=== PATIENT | female | born 1970 | race Caucasian/White ===

== ENCOUNTER → 2017-10-22 09:40 | Outpatient (CLI) | payer MEDICARE, MEDICAID, SELFPAY ==
--- NOTE | 2017-10-22 09:44 | RAD_ITS ---
STUDY: X-RAY - PELVIS AND LEFT HIP REASON FOR EXAM: Female, 46 years old. Pain, remote injury TECHNIQUE: Radiological exam, hip, unilateral, with pelvis when performed; 2 or 3 views. COMPARISON: None. FINDINGS: There is marked osteoarthritis at the left hip. There is a non-specific bowel gas pattern. Normal visualized soft tissue structures. Normal bilateral iliac wings, sacroiliac joints and visualized sacrum. Normal bilateral superior and inferior pubic rami. Normal pubic symphysis. Normal bilateral ischial tuberosities. RAD/Hip 2-3 Views with Pelvis IMPRESSION: Marked osteoarthritis of the left hip Electronically Signed: Josh Brown MD at 10:04 EST Tel , Service support ,
== END ==
PROVIDERS: Visit Provider Orthopaedic Surgery
DX: M25.552 Pain in left hip (principal)
CPT/HCPCS: 73502

== ENCOUNTER → 2022-03-03 | Outpatient (CLI) | payer MEDICARE, MEDICAID, SELFPAY ==
--- NOTE | 2022-03-03 12:15 | CT_ITS ---
STUDY: CT SCAN LOWER EXTREMITY BILATERAL REASON FOR EXAM: Female, 51 years old. SURGERY- [facility] HIP PROTOCOL RADIATION DOSAGE (If Supplied By Facility): CTDIvol = ( 14.01 ) mGy, DLP = ( 834.05 ) mGycm. Individualized dose optimization techniques were used for this CT.? TECHNIQUE: Multiple axial tomographic images of the hip joints and knee joints were obtained. Coronal and sagittal reconstruction was obtained as well. COMPARISON: None. FINDINGS: There is a marked degree of joint space narrowing and osteoarthritis of the left hip. There is evidence of subchondral cystic changes in the acetabulum and femoral head. This is suggestive of a avascular necrosis. There is superior migration of the left femoral head within the neoacetabular formation. Mild degree of joint space narrowing of the right hip joint. Mild degree of joint space narrowing involving the medial compartments of both knee joints. 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 Electronically Signed: Christian Mc MD at 14:37 EDT ,
== END | disposition home or self-care (01) ==
PROVIDERS: PCP Family Medicine; Referring Provider Specialist; Visit Provider Specialist
DX: M16.52 Unilateral post-traumatic osteoarthritis, left hip (principal)
CPT/HCPCS: 73700

== ENCOUNTER 2022-03-11 15:35 | Inpatient (IN) | payer MEDICARE, MEDICAID, SELFPAY ==
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
[2022-03-03 13:45] LABS: Absolute Lymphocyte Count 3.89 X10^3/uL (0.83-4.51); Absolute Neutrophil Count 6.2 X10^3/uL (2.0-7.7); Basophil# 0.05 X10^3/uL; Basophil% 0.5 % (0-1); Eosinophil# 0.19 X10^3/uL; Eosinophils% 1.7 % (0-5); Hematocrit 51.5 % (37-47); Hemoglobin 16.8 g/dL (12.0-15.0); Lymphocyte # 3.89 X10^3/ul (0.83-4.51); Lymphocyte % 35.1 % (19-41); Mean Corp Hgb Conc 32.6 g/dL (32-36); Mean Corpuscular Hgb 30.8 pg (27.0-32.0); Mean Corpuscular Volume 94.5 fL (81-99); Monocyte# 0.76 X10^3/uL; Monocyte% 6.9 % (0-10); NRBC Flagged by Analyzer 0 % (0-5); Neutrophil # 6.16 X10^3/uL (2.7-7.7); Neutrophil % 55.5 % (47-70); Platelet Count 280 K/mm3 (150-450); RBC Distribution Width CV 13.8 % (11.6-14.6); RBC Distribution Width SD 47.8 fl (35.1-43.9); Red Blood Count 5.45 M/mm3 (4.2-5.4); White Blood Count 11.1 K/mm3 (4.4-11.0)
[2022-03-03 13:52] LABS: Prothrombin Time (Protime)PT. 12.9 SECONDS (11.7-14.9)
[2022-03-03 14:02] LABS: Anion Gap 9 (5-15); BUN 13 mg/dL (7-18); BUN/Creat Ratio 14.2 RATIO (10-20); Calcium,Total 10.9 mg/dL (8.5-10.1); Chloride 101 mmol/L (98-107); Creatinine, Serum 0.92 mg/dL (0.55-1.02); EST Glomerular Filtration Rate 68 mL/min (>60); Est Glom Filt Rate - Afr Amer 82 mL/min (>60); Glucose 108 mg/dL (74-106); Potassium 3.8 mmol/L (3.5-5.1); Sodium Level 135 mmol/L (136-145)
[2022-03-03 14:13] LABS: AST(SGOT) 23 U/L (15-37); Alanine Aminotransfer ALT/SGPT 33 U/L (13-56); Albumin, Serum 4.1 g/dL (3.2-5.0); Alkaline Phosphatase 154 U/L (45-117); Bilirubin, Direct 0.13 mg/dL (0.00-0.30); Globulin 4.7 g/dL (2.2-4.2); Magnesium 2.1 mg/dL (1.6-2.6); Protein, Total 8.8 g/dL (6.4-8.2)
[2022-03-11] VITALS (12 sets, daily range): BP systolic 124–162; BP diastolic 85–115; PULSE 99–120; RESP 16–24; TEMP 36–37.1; O2SAT 95–100; BMI 31.7; BMI 32.1
[2022-03-11] MEDS: Gabapentin 600 MG Tablet PO (11:41)
[2022-03-11] MEDS: Acetaminophen 500 MG Tablet 1000 MG PO ×2 (11:41→21:50)
[2022-03-11] MEDS: Lactated Ringers 1,000 ML 999 ML IV ×2 (11:42→15:30)
[2022-03-11 12:16] LABS: Bedside Glucose 107 mg/dL (74-106)
[2022-03-11] MEDS: Cefazolin 2 GM in 0.9% Normal Saline 100 ML IV (15:01)
[2022-03-11] MEDS: Lactated Ringers 1,000 ML 75 ML IV (15:05)
[2022-03-11] MEDS: TXA 1000mg in NS100 100ml (IVPB at Incision) 660 MG IV (15:29)
[2022-03-11] MEDS: dexAMETHasone 10 MG/ML Vial IV (15:34)
[2022-03-11] MEDS: TXA 1000mg in NS100 100ml (IVPB at Closure) 660 MG IV (16:49)
--- NOTE | 2022-03-11 16:51 | OP.PCM_ITS ---
Report of Operation Date of Procedure: 03/11/22 Pre-Operative Diagnosis: Left hip posttraumatic secondary osteoarthritis Previous left hip surgery Post-Operative Diagnosis: Left hip posttraumatic secondary osteoarthritis Previous left hip surgery Surgery/Procedure Performed:: Conversion previous hip surgery to total hip replacement Description of Surgical Findings:: Stable hip with equal leg lengths Surgeon: Josh Wells delivery representative: Dustin Melton Type of Anesthesia: General Anesthesiologist: Stephan Feliciano Special Medications: 2 g Ancef, 1 g TXA at incision, 1 g TXA closure, 10 mg Decadron Specimen's removed: Bony cuts Estimated Blood Loss (mL): 250 Fluids Replaced: 1500 mL crystalloid Description of Procedure: Findings: Adequate reduction with stability of the hip and equal leg lengths measured intraoperatively. Components used: 1. Paoal secure fit advanced size 9 stem, 132 neck angle 2. Paola Trident 254 mm acetabular shell 3. Hurricane X3 polyethylene liner, alpha code E 4. Paola Biolox delta 36 mm, 5 mm neck femoral head Brief history operative indications: 51-year-old female who presented to my office status post previous acetabular surgery with posttraumatic osteoarthritis. She failed conservative measures. She had severe decreased range of motion. Previous surgical scars are well- healed. No previous surgical complications in this area. Risks and benefits were discussed with the patient which included but were not limited to blood loss, DVTs, PEs, infection, neurovascular damage, and dislocation. In light of all this patient did agree to proceed with a conversion of her previous hip surgery to total hip arthroplasty. Procedure: On the date of procedure the patient's L hip was marked in the preoperative area. Patient was then taken back to the operating room where anesthesia assumed control of the C-spine and airway and administered anesthetic. Patient was transferred to the operating table and placed in the lateral decubitus posit ion with the affected hip up. The patient was secured in the bed with the lateral positioners and leg lengths were checked. The L lower extremity was then prepped out in a sterile fashion using chlorhexidine while the surgeon scrubbed. Upon reentering the room the L lower extremity was draped in the standard orthopedic fashion and the incision was marked. A timeout was called and everyone agreed upon the side, the site, the procedure be performed, antibiotics given, and patient's identity. Our attention was initially directed to the iliac crest where 2 pins were placed and the robotic arrays were fastened. At this time incision was made through skin, subcutaneous tissue, and fat down to fascia. The fascia was then incised and a Charley retractor was placed. The soft tissue was then cleared from the posterior external rotators and the piriformis was identified. Piriformis was taken down and tagged. The remainder of the short external rotators were taken down. Capsulotomy was made and the posterior capsule was tagged. The retractors were then placed inside the capsule. At this time we placed the checkpoint in the proximal femur and registered the femoral checkpoints. The femoral head was then dislocated. The femoral neck was identified and a cleanup cut was made. At this time a power corkscrew was used to remove the femoral head. At this time all bony debris was removed from the acetabulum. Our attention was then directed to the acetabulum and the anterior retractor was placed and a Zelpi was used to retract the posterior capsule superiorly. All soft tissue debris was removed from the pulvinar and labrum of the joint. Acetabulum was registered using the Conecte Link system after passing registration the acetabulum was then reamed to 54 millimeters. At this time a and 54 mm Hurricane Trident 2 cup was opened and impacted into place using the robotic arm. The acetabular liner was then opened and impacted into place. Locking mechanism was verified. Attention was then turned to the femur where the proximal femur was appropriately exposed using a perez retractor. The dry box operator was used to remove the lateral bone. Canal finder was used to verify the canal. We then reamed for a size 9 stem. The proximal femoral femur was then sequentially broached to a size 9 broach which had an appropriate fit. The standard neck was chosen and a 36 mm head with 5 mm offset was trialed. The hip was properly reduced using traction and external rotation. Stability was checked with the appropriate amount of shuck, no impingement with external rotation, and stable at 90? flexion and 90? internal rotation. Leg lengths were checked and were found to be equal on the table and with the Conecte Link robotic system. Once the hip was determined to be stable the trial components were dislocated and the proximal femur was again exposed and the components were removed from the wound. The final components were verified and opened. The wound was copiously irrigated out with normal saline. The acetabulum was checked for any residual debris. The final components were placed and impacted. Traction and external rotation were again used to reduce the hip. After adequate reduction the hip remained stable with appropriate leg lengths. The wound was then copiously irrigated with normal saline once more, and hemostasis was obtained. The posterior capsule and piriformis were repaired through drill holes to the greater trochanter . Closure was then done using #1 Vicryl to close the fascia. A 2-0 Vicryl interrupted sutures were used to close the subcutaneous skin. Skin everardo were used for final skin closure. A sterile dressing was placed. Patient was awakened by anesthesia and transferred to the [facility]. Patient was then transferred to the PACU for recovery. Postoperative plan: Patient will get 24 hours postop antibiotics. Patient will get in-house physical therapy and will be weight-bear as tolerated. Patient will follow up in office in 2 weeks for a wound check and x-rays. Patient be placed on Xarelto 10 mg daily for 4 weeks postop due to anaphylaxis with aspirin. During the course of the procedure the physician steam and gas turbines assembler (PE) played a vital role. Their intimate knowledge of my steps in the procedure aided in safe and expedient completion of the procedure. The PE played a vital rolls in positioning particularly in obtaining the appropriate lateral decubitus position. The PE was also vital in the retraction of soft tissues during the exposure and especially the femoral work as this is a vital part of the procedure to prevent complications and fractures. The PE was also vital and protecting soft tissues during times of bony cuts and reaming. He also played a vital role in closure with my direct supervision. The PE was also important during reduction and dislocation of the joint and trials intraoperatively. Complications No intraoperative complications Admit VTE Documentation VTE Present on Admission: No VTE Mechan Device Prophylaxis: SCD's and Thigh High ADORE Hose VTE Pharm Prophylaxis ordered?: Yes
--- NOTE | 2022-03-11 18:02 | SUR.PHASEI ---
PATIENT STATES I ALWAYS WAKE UP LIKE THIS... CRYING AND SCARED VERY TEARFUL, SOBBING, STATES SHE'S VERY ANXIOUS, I HAVE REALLY HIGH ANXIETY. ATIVAN GIVEN, PAIN MEDS GIVEN.
--- NOTE | 2022-03-11 18:12 | RAD_ITS ---
STUDY: X-RAY - PELVIS AND LEFT HIP REASON FOR EXAM: Female, 51 years old. Post Op -- AP both hips on single jodie/lateral of op hip PACU TECHNIQUE: 2 views of the pelvis and hip. COMPARISON: 10/22/2017 FINDINGS: Please see the impression. RAD/Hip Min 2 Views (Portable) IMPRESSION: Interval left total hip arthroplasty. No radiographic evidence of hardware complication or periprosthetic fracture. Mild osteoarthritis of the right hip joint. Electronically Signed: Praful Carbajal MD at 18:35 EDT ,
[2022-03-11] MEDS: Gabapentin 300 MG Capsule PO (21:49)
[2022-03-11] MEDS: Pramipexole Di-HCl 1 MG Tablet PO (21:50)
[2022-03-11] MEDS: QUEtiapine 100 MG Tablet 200 MG PO (21:51)
[2022-03-11] MEDS: Senna/Docusate Sodium 1 Tablet 2 TABLET PO (21:51)
[2022-03-11] MEDS: Tolterodine Tartrate 2 MG CAP.SA PO (21:51)
[2022-03-11] MEDS: ARIPiprazole 5 MG Tablet PO (21:58)
[2022-03-11] MEDS: amLODIPine 5 MG Tablet PO (22:00)
--- NOTE | 2022-03-11 22:00 | PN.HOSP_ITS ---
Subjective Subjective Patient is a 51 old female with a significant history of bipolar disorder; hypertension; tobacco abuse; COPD; former methamphetamine abuse; and sleep apnea who is postop day 0 for Conversion previous hip surgery to total hip replacement. Internal medicine service has been consulted for post op medical management which includes management of chronic medical conditions of hypertension; bipolar; COPD; and sleep apnea. She complains of a tolerable pain at her left hip. She denies any other symptoms. Objective Data Objective Data Vital Signs: Vital Signs Temp Pulse Resp BP Pulse Ox O2 Del Method O2 Flow Rate 97.9 F 120 H 24 H 154/102 H 98 Nasal Cannula 2 03/11/22 19:10 03/11/22 19:10 03/11/22 19:10 03/11/22 19:10 03/11/22 20:25 03/11/22 20:25 03/11/22 20:25 Oxygen Flow Rate (L/min) 2 Oxygen Delivery Method Nasal Cannula Weight: 101.378 kg Body Mass Index (BMI) 32.1 Intake & Output: Intake and Output for Last 24 Hours 03/09/22 03/10/22 03/11/22 23:59 23:59 23:59 Intake Total 3432 / 3432 Balance 3432 / 3432 Lab / Micro Data Attestation: I reviewed the patient's lab results. Result Diagrams: 03/03/22 12:28 03/03/22 12:28 Labs: Laboratory Results - last 24 hr 03/11/22 11:33: POC Glucose 107 H Micro: Microbiology 03/03/22 12:28 Swab (Method) Nasal Screen MRSA/MSSA - Final Radiography Diagnostic Testing: Radiology Impression Hip X-Ray 03/11/22 18:12 IMPRESSION: Interval left total hip arthroplasty. No radiographic evidence of hardware complication or periprosthetic fracture. Mild osteoarthritis of the right hip joint. Electronically Signed: Praful Carbajal MD at 18:35 EDT , Physical Exam Narrative Physical exam: General: Well-nourished, well-developed. Head: Normocephalic, atraumatic, no tenderness Eyes: Vision is grossly intact. EOMI ENT, edentulous, moist mucous membranes, no rhinorrhea Neck: Nontender, full range of motion, no spinal tenderness, deformities, step- off CVS: Regular rate and rhythm. S1-S2 present. No murmur, gallop or rub. Respiratory : clear to auscultation bilaterally, chest wall nontender, no wheezing Abdomen: Soft, nontender, nondistended, normal bowel sounds, no masses : Deferred Back: Nontender, no CVA tenderness, no midline spinal tenderness, deformities, step-offs Extremities: Tender left hip. No edema of bilateral legs. Skin: Dry and intact dressing at left hip. Normal color, no trauma, abrasions. Polar pack in place at left hip. Neuro: Alert, oriented, cranial nerves II through XII grossly intact. Psychiatry: Normal mood. Normal affect. Not depressed. Not anxious. Assessment & Plan Assessment/Plan (1) Status post left hip replacement: (2) Sleep apnea: (3) Hypertension: PLAN: Plan Status post left hip replacement Postop day 0 on 03/11/2022. Advance diet from clear to regular. Pain control by primary. Leukocytosis, mild. Trend. Hypertension Blood pressure is now within goal. Amlodipine continued. As needed hydralazine ordered. Sleep apnea Nighttime oximetry continued. Oxygen as needed Bipolar disorder Seroquel and aripiprazole continued. Monitor. Tobacco abuse Counseled. Declined nicotine patch. Erythrocytosis Hemoglobin was 16.8; hematocrit of 51.5. Likely secondary to smoking. Trend. DVT prophylaxis: With ADORE duff and SCD; continued.. Charges/Coding Visit Charges Inpatient E&M: 56495 Subs Hosp L2
[2022-03-11] MEDS: Cefazolin 1 GM/50 ML BAG IV (23:28)
--- NOTE | 2022-03-12 | HIP_PTH ---
PATIENT: ROMY BACON LOC: [facility] U#:[id number] AGE/SX: 51/F ROOM: [facility] RE03/11/[address]: Dr. Josh Wells MD : 1970 BED: 1 DIS: 03/13/2022 SPEC #: [id number] RECD: 03/12/22 11:11 STATUS: JUNIOR GRACE #: [id number] DEV: 03/12/22 00:[address]: Josh Wells DEPT: SURGICAL PATHOLOGY RECD BY: Emmett Salas ENTERED: 03/12/22 11:11 SP TYPE: TOTAL HIP OTHR DR: MD Dr. Milvia Goetz DO Dr. Nicholas F Kotsonis, MD Tissues: Hip, NOS Procedures: Decalcification bone/plaque Surgery Specimen Level IV HEADER OPERATION: ERAS, robotic assisted total hip arthroplasty PRE-OP DIAGNOSIS: Severe left hip osteoarthritis TISSUE SUBMITTED: Left femoral bone and tissue MICROSCOPIC DIAGNOSIS Bone and tissue of left hip, total hip resection: Severe degenerative joint disease. AM:armaan 03/16/2022 MICROSCOPIC DESCRIPTION Slides are reviewed. GROSS DESCRIPTION Received is one container labeled with the patient's name and designated left femoral bone and tissue. The specimen consists of a distorted femoral head measuring 6.8 x 6 x 6 cm. The articular surface displays prominent osteophyte formation, eburnation and bone erosion. Also present in the specimen container are multiple irregular fragments of bone and bone reamings measuring in aggregate 10 x 7 x 2 cm. Engineering Intern sections are submitted in one cassette after decalcification. / AM:armaan 03/12/2022 TC:5 CPT: 80742, 71108
[2022-03-12 04:46] VITALS: BP 120/79; PULSE 93; RESP 18; TEMP 36.6; O2SAT 98
[2022-03-12] MEDS: Acetaminophen 500 MG Tablet 1000 MG PO ×3 (06:27→21:15)
[2022-03-12] MEDS: Rivaroxaban 10 MG Tablet PO (06:27)
[2022-03-12 07:30] LABS: Hematocrit 39.4 % (37-47); Mean Corpuscular Hgb 30.9 pg (27.0-32.0); Mean Corpuscular Volume 93.6 fL (81-99); Mean Platelet Vol. 9.8 fl (6.2-12.0); Platelet Count 245 K/mm3 (150-450); RBC Distribution Width CV 13.5 % (11.6-14.6); RBC Distribution Width SD 45.8 fl (35.1-43.9); Red Blood Count 4.21 M/mm3 (4.2-5.4); White Blood Count 15.6 K/mm3 (4.4-11.0)
[2022-03-12 08:00] VITALS: BP 134/88; PULSE 126; RESP 16; TEMP 37; O2SAT 96
[2022-03-12] MEDS: 0.9% Saline Lock 10 ML Syringe IV ×3 (08:06→21:45)
[2022-03-12] MEDS: Cefazolin 1 GM/50 ML BAG IV (08:06)
[2022-03-12 08:31] LABS: Anion Gap 8 (5-15); BUN 7 mg/dL (7-18); BUN/Creat Ratio 11.2 RATIO (10-20); Calcium,Total 9.3 mg/dL (8.5-10.1); Chloride 106 mmol/L (98-107); Creatinine, Serum 0.62 mg/dL (0.55-1.02); EST Glomerular Filtration Rate 106 mL/min (>60); Est Glom Filt Rate - Afr Amer 128 mL/min (>60); Estimated Creatinine Clearance 113.48 ml/min; Glucose 122 mg/dL (74-106); Potassium 4.3 mmol/L (3.5-5.1); Sodium Level 136 mmol/L (136-145)
--- NOTE | 2022-03-12 09:57 | CASEMGMT ---
Social Work SW met w/pt in room to review prior level of function and anticipate discharge plan. PCP: Milvia Dave Specialists: Dr. Wells, orthopedics, Dr. Lee, cardiology, and a counselor at [facility]: [facility] [place] Insurance/Prescription Coverage: [place] [employer] Living arrangements/Prior level of care: Pt lives home in a trailer with her daughter, son-in-law and grandson. There is a ramp and then four steps into the trailer, she states one is falling apart. Pt is independent at home. LW/POA: We spoke about LW/POA, pt does not have these documents, declines to complete at this time. DME/HHC/SNF: Pt states has no history of SNF or HHC. Pt states has a walker she uses at baseline, she also has grab bars, toilet riser, bedside commode, shower chair, morning show newscast producer. Plan: SW spoke w/pt about plan from hospital. Pt states she cannot go home due to having a cattle driveway. SW provided list of long term facilities in pt's preferred geographic area, in pt's insurance network, complete with quality and resource use data. Pt states would like to go to [facility]. SW explained referral will be sent, if [facility] can take, they will submit the information to insurance for precert, to see if they will authorize. Pt states understanding. Plan: SNF skilled pending precert [facility]
--- NOTE | 2022-03-12 10:08 | CASEMGMT ---
Discharge Contingents Supervisor [place] Discharge Contingents Supervisor called [facility]. Beds are available. [place] faxed over referral. OT notes are not in yet. Will fax over OT notes when I see they are available. Will follow. Jamaica Jordan Discharge Contingents Supervisor
[2022-03-12] MEDS: Famotidine 20 MG Tablet PO (10:38)
[2022-03-12] MEDS: Cholecalciferol (Vit D3) 125 MCG CAPSULE (5,000 UNITS) PO (10:39)
[2022-03-12] MEDS: Ketorolac 15 MG/ML Vial IV ×2 (10:43→21:43)
[2022-03-12] MEDS: Gabapentin 300 MG Capsule PO ×2 (10:43→21:14)
--- NOTE | 2022-03-12 10:58 | PN.ORTHO_ITS ---
Subjective Subjective The patient was sitting in bedside chair upon examination. Patient denies any chest pain, shortness of breath, dizziness, lightheadedness, nausea or vomiting, or calf pain. Pain is controlled on medications. No adverse overnight events. Patient overall appears to be doing well today. She tolerated therapy well. Patient states she is wishing to go to residential facility as she has difficulty getting to her house secondary to a cattle driveway. Objective Data Objective Data Vital Signs: Vital Signs Temp Pulse Resp BP Pulse Ox O2 Del Method O2 Flow Rate 97.8 F 93 18 120/79 98 Room Air 2 03/12/22 04:46 03/12/22 04:46 03/12/22 04:46 03/12/22 04:46 03/12/22 04:46 03/12/22 04:46 03/11/22 23:08 Oxygen Flow Rate (L/min) 2 Oxygen Delivery Method Room Air Weight: 101.378 kg Body Mass Index (BMI) 32.1 Intake & Output: Intake and Output for Last 24 Hours 03/10/22 03/11/22 03/12/22 23:59 23:59 23:59 Intake Total 3432 / 3432 50 / 50 Output Total 1100 / 1100 Balance 3432 / 2332 -1050 / -1050 Lab / Micro Data Result Diagrams: 03/12/22 07:10 03/12/22 07:10 Labs: Laboratory Results - last 24 hr 03/11/22 11:33: POC Glucose 107 H 03/12/22 07:10: WBC 15.6 H, RBC 4.21, Hgb 13.0, Hct 39.4, MCV 93.6, MCH 30.9, MCHC 33.0, RDW Std Deviation 45.8 H, RDW Coeff of [place] 13.5, Plt Count 245, MPV 9.8 03/12/22 07:10: Sodium 136, Potassium 4.3, Chloride 106, Carbon Dioxide 22.0, Anion Gap 8, BUN 7, Creatinine 0.62, Estim Creat Clear Calc 113.48, Est GFR (MDRD) Af Amer 128, Est GFR (MDRD) Non-Af 106, BUN/Creatinine Ratio 11.2, Glucose 122 H, Calcium 9.3 Micro: Microbiology 03/03/22 12:28 Swab (Method) Nasal Screen MRSA/MSSA - Final Radiography Diagnostic Testing: Radiology Impression Hip X-Ray 03/11/22 18:12 IMPRESSION: Interval left total hip arthroplasty. No radiographic evidence of hardware complication or periprosthetic fracture. Mild osteoarthritis of the right hip joint. Electronically Signed: Praful Carbajal MD at 18:35 EDT Reading Location ID and State: [facility] / [place] Tel , Service support , Physical Exam Narrative Vital signs stable and afebrile. Yesterday patient was having some tachycardia and elevated blood pressure. This has been trending downward. Currently denies any chest pain or shortness of breath. We will continue to monitor. SCDs and ADORE hose are in place bilaterally Left hip is soft and supple Patient is able to plantarflex and dorsiflex actively. Sensation is intact to light touch to saphenous, sural, superficial and deep pe roneal, and tibial distribution. Dressing is clean dry and intact. Negative Homans bilaterally, negative signs and symptoms of DVT. Const alert, oriented x3 and no apparent distress Nutritional Appearance: obese Assessment & Plan Assessment/Plan (1) Status post left hip replacement: PLAN: 1. S/P conversion previous hip surgery to a posterior left total hip arthroplasty POD #1 2. Continue Pain Medications: Tylenol and oxycodone 3. DVT Prophylaxis: Xarelto for 4 weeks postoperatively as patient has a anaphylaxis reaction to aspirin. 4. PT/OT: Weightbearing as tolerated with walker. Continue with posterior hip dislocation precautions for 3 months postoperatively 5. H & H: 13.0/39.4, asymptomatic. Postoperative anemia secondary to acute blood loss from surgery without any intra operative complications. 6. Reactive leukocytosis: Currently 15.6, afebrile. Patient did receive Decadron intraoperatively. No signs clinically of underlying infection. 7. Continue postoperative medical management per medicine: Patient does have history of chronic obstructive pulmonary disease/emphysema and does require oxygen 2 L at nighttime. Also with sleep apnea. 8. Encouraged Incentive Spirometry 9. Disposition: Case management is currently involved in appropriate discharge planning and placement. Patient will continue above medications while in the hospital. Continue with physical therapy while in the hospital. Probable discharge tomorrow depending upon approval with insurance. I have reviewed the [place] Automated Rx Reporting System (OARRS) report for this patient for refill pattern and other prescriber involvement as part of the appropriate surveillance for the provision of acute and chronic controlled medications. The report was requested and reviewed on the date of this entry and was considered in the prescribing process. This dictation was created using voice recognition software. Phonetic and/or grammatical errors may exist.
[2022-03-12 11:44] VITALS: O2SAT 96
--- NOTE | 2022-03-12 14:07 | CASEMGMT ---
Social Work BENIGNO spoke w/Kenyatta at [facility]. Kenyatta concerned pt would trigger a further review when a PAS/RR is completed. BENIGNO explained to Kenyatta that pt is inpt and will need less than 30 days at the SNF so a PAS/RR is not needed. Kenyatta states understanding, will submit for precert. She is concerned however insurance may not authorize. BENIGNO spoke w/pt again, let her know [facility] can take pt and will start precert. SW did let her know that [place] is concerned on whether or not she will be authorized however. Pt states understanding. She states however that she is not prepared to go home. She states she sleeps on a futon, has a broken step, and is concerned that going down her bumpy driveway in a car could cause damage to her new hip. SW explained will keep her informed as we go about precert. BENIGNO did call Kenyatta back at [facility], let her know pt's concerns and asked her to put this with the information submitted for precert, as perhaps it would help with attaining precert. Kenyatta states understanding. BENIGNO will continue to follow. LYRIC Weinstein
--- NOTE | 2022-03-12 15:32 | CASEMGMT ---
Addendum entered by Jamaica Jordan 03/12/22 16:03: Discharge Sock Lining Examiner [place] Discharge Sock Lining Examiner faxed over old therapy. New therapy note was never put in. [email or web address] admissions called and said patient would probably not be accepted by insurance because she is independent and walking 120ft CG. Arianna from [email or web address] said there would be no need in her going there. Jamaica updated SW Henna and Henna was going to call admissions to see why they will not send information to insurance. [place] Jordan Discharge Sock Lining Examiner Original Note: Discharge Sock Lining Examiner Faxed over all PT/OT notes including recent therapy to [email or web address]. [place] Discharge Sock Lining Examiner
--- NOTE | 2022-03-12 16:11 | CM.UR ---
Social Work SW called Kenyatta at [facility] for clarification on whether or not they are saying no to referral, or if insurance denied. As per Kenyatta, her regional sales representative said pt would not be authorized. BENIGNO explained that pt did therapy again, however we don't have updated notes and will send them over once they are in. Kenyatta states she will forward them once they are sent over. SW/personal financial planner assistant golf course superintendent will send over the updated notes once they are available. BENIGNO will continue to follow. LYRIC Weinstein
[2022-03-12 18:25] VITALS: BP 128/88; PULSE 112; RESP 14; TEMP 36.9; O2SAT 99
[2022-03-12 21:08] VITALS: BP 133/92; PULSE 101; RESP 20; TEMP 36.7; O2SAT 97
[2022-03-12] MEDS: ARIPiprazole 5 MG Tablet PO (21:13)
[2022-03-12] MEDS: Tolterodine Tartrate 2 MG CAP.SA PO (21:13)
[2022-03-12] MEDS: QUEtiapine 100 MG Tablet 200 MG PO (21:14)
[2022-03-12] MEDS: amLODIPine 5 MG Tablet PO (21:14)
[2022-03-12] MEDS: Pramipexole Di-HCl 1 MG Tablet PO (21:14)
[2022-03-13] VITALS (7 sets, daily range): BP systolic 124–133; BP diastolic 79–93; PULSE 99–117; RESP 16–18; TEMP 36.5–36.8; O2SAT 94–97
[2022-03-13] MEDS: Ketorolac 15 MG/ML Vial IV (03:58)
[2022-03-13] MEDS: 0.9% Saline Lock 10 ML Syringe IV (04:02)
[2022-03-13] MEDS: Rivaroxaban 10 MG Tablet PO (04:03)
[2022-03-13] MEDS: Acetaminophen 500 MG Tablet 1000 MG PO (04:03)
[2022-03-13 06:12] LABS: Absolute Neutrophil Count 8.1 X10^3/uL (2.0-7.7); Basophil# 0.03 X10^3/uL; Basophil% 0.2 % (0-1); Eosinophil# 0.09 X10^3/uL; Eosinophils% 0.7 % (0-5); Hematocrit 36.2 % (37-47); Lymphocyte % 25.2 % (19-41); Mean Corp Hgb Conc 33.1 g/dL (32-36); Mean Corpuscular Hgb 30.8 pg (27.0-32.0); Mean Corpuscular Volume 92.8 fL (81-99); Mean Platelet Vol. 9.8 fl (6.2-12.0); Monocyte% 7.3 % (0-10); NRBC Flagged by Analyzer 0 % (0-5); Neutrophil # 8.14 X10^3/uL (2.7-7.7); Neutrophil % 66.2 % (47-70); Platelet Count 241 K/mm3 (150-450); RBC Distribution Width SD 47.4 fl (35.1-43.9); White Blood Count 12.3 K/mm3 (4.4-11.0)
[2022-03-13 06:31] LABS: Anion Gap 5 (5-15); BUN 15 mg/dL (7-18); BUN/Creat Ratio 19.2 RATIO (10-20); Chloride 108 mmol/L (98-107); Creatinine, Serum 0.78 mg/dL (0.55-1.02); EST Glomerular Filtration Rate 82 mL/min (>60); Est Glom Filt Rate - Afr Amer 99 mL/min (>60); Glucose 97 mg/dL (74-106); Potassium 3.9 mmol/L (3.5-5.1); Sodium Level 140 mmol/L (136-145)
--- NOTE | 2022-03-13 06:34 | PN.ORTHO_ITS ---
Subjective Subjective The patient was sitting in bedside chair upon examination. Patient denies any chest pain, shortness of breath, dizziness, lightheadedness, nausea or vomiting, or calf pain. Pain is controlled on medications. No adverse overnight events. Patient's plan is to try to go to [facility]. We are waiting on pre-CERT and approval through insurance. Patient has been working with physical therapy doing well. She states her pain is significantly improved from prior to surgery. She is pleased with outcome of surgery. Patient denies any chest pain or shortness of breath. No feelings of palpitations or racing heart. She does have some mild tachycardia which she also had at her preoperative visit prior to surgery. Objective Data Objective Data Vital Signs: Vital Signs Temp Pulse Resp BP Pulse Ox O2 Del Method O2 Flow Rate 97.7 F L 99 18 124/79 H 96 Room Air 2 03/13/22 03:52 03/13/22 03:52 03/13/22 03:52 03/13/22 03:52 03/13/22 03:52 03/13/22 03:52 03/11/22 23:08 Oxygen Flow Rate (L/min) 2 Oxygen Delivery Method Room Air Weight: 101.378 kg Body Mass Index (BMI) 32.1 Intake & Output: Intake and Output for Last 24 Hours 03/11/22 03/12/22 03/13/22 23:59 23:59 23:59 Intake Total 3432 / 3432 100 / 100 Output Total 1100 / 1100 Balance 3432 / 2332 -1000 / -1000 Lab / Micro Data Result Diagrams: 03/13/22 06:00 03/13/22 06:00 Labs: Laboratory Results - last 24 hr 03/12/22 07:10: WBC 15.6 H, RBC 4.21, Hgb 13.0, Hct 39.4, MCV 93.6, MCH 30.9, M CHC 33.0, RDW Std Deviation 45.8 H, RDW Coeff of [place] 13.5, Plt Count 245, MPV 9.8 03/12/22 07:10: Sodium 136, Potassium 4.3, Chloride 106, Carbon Dioxide 22.0, Anion Gap 8, BUN 7, Creatinine 0.62, Estim Creat Clear Calc 113.48, Est GFR (MDRD) Af Amer 128, Est GFR (MDRD) Non-Af 106, BUN/Creatinine Ratio 11.2, Glucose 122 H, Calcium 9.3 03/13/22 06:00: WBC 12.3 H, RBC 3.90 L, Hgb 12.0, Hct 36.2 L, MCV 92.8, MCH 30.8, MCHC 33.1, RDW Std Deviation 47.4 H, RDW Coeff of [place] 14.0, Plt Count 241, MPV 9.8, Immature Gran % (Auto) 0.400, Neut % (Auto) 66.2, Lymph % (Auto) 25.2, [place] % (Auto) 7.3, Eos % (Auto) 0.7, Baso % (Auto) 0.2, Absolute Neuts (auto) 8.1 H, Absolute Lymphs (auto) 3.10, Nucleated RBC % 0 03/13/22 06:00: Sodium 140, Potassium 3.9, Chloride 108 H, Carbon Dioxide 27.0, Anion Gap 5, BUN 15, Creatinine 0.78, Estim Creat Clear Calc 90.20, Est GFR (MDRD) Af Amer 99, Est GFR (MDRD) Non-Af 82, BUN/Creatinine Ratio 19.2, Glucose 97, Calcium 9.0 Micro: Microbiology 03/03/22 12:28 Swab (Method) Nasal Screen MRSA/MSSA - Final Physical Exam Narrative Vital signs stable and afebrile. Patient does have previous readings of some mild tachycardia. She also had this at her preoperative visit prior to surgery. She denies any chest pain or shortness of breath. Denies any racing heart or palpitations. Left thigh is soft and supple ADORE hose are in place bilaterally. SCDs are currently not on. Patient is able to plantarflex and dorsiflex actively. Sensation is intact to light touch to saphenous, sural, superficial and deep peroneal, and tibial distribution. Dressing is clean dry and intact. Negative Homans bilaterally, negative signs and symptoms of DVT. Const alert, oriented x3 and no apparent distress Nutritional Appearance: obese Assessment & Plan Assessment/Plan (1) Status post left hip replacement: PLAN: 1. S/P conversion previous hip surgery to a posterior left total hip arthroplasty POD #2 2. Continue Pain Medications: Tylenol and oxycodone 3. DVT Prophylaxis: Xarelto for 4 weeks postoperatively as patient has a anaphylaxis reaction to aspirin. 4. PT/OT: Weightbearing as tolerated with walker. Continue with posterior hip dislocation precautions for 3 months postoperatively 5. H & H: 12.0/36.2, asymptomatic. Postoperative anemia secondary to acute blood loss from surgery without any intra operative complications. 6. Reactive leukocytosis: Trending down and currently at 12.3, afebrile. Patient did receive Decadron intraoperatively. No signs clinically of underlying infection. 7. Continue postoperative medical management per medicine: Patient does have history of chronic obstructive pulmonary disease/emphysema and does require oxygen 2 L at nighttime. Also with sleep apnea. 8. Encouraged Incentive Spirometry 9. Disposition: Case management is currently involved in appropriate discharge planning and placement. Patient will continue above medications while in the hospital. Continue with physical therapy while in the hospital. Plan will be [facility] facility as long as approval can be obtained. I did discuss with the patient that if approval was not obtained will need to consider home with home health therapy or outpatient therapy. She voiced understanding and agreement with treatment plan. Prescriptions will be placed on the chart. Patient will follow-up per postop instructions. Therapy will need to be established with catalytic case operator if patient is not able to go to jail facility. I also recommend she follow-up with her primary care physician in approximately 10 days postoperatively. She voiced understanding agreement. I discussed with her patient's resting tachycardia and she states she does not have any feelings of palpitations or racing heart. Case was discussed with Dr. Josh Wells. I have reviewed the [place] Automated Rx Reporting System (OARRS) report for this patient for refill pattern and other prescriber involvement as [facility] for the provision of acute and chronic controlled medications. The report was requested and reviewed on the date of this entry and was considered in the prescribing process. This dictation was created using voice recognition software. Phonetic and/or grammatical errors may exist.
--- NOTE | 2022-03-13 06:41 | TREXTCAR_ITS ---
Diet Diet Order/Speech Therapy: 03/11/22 22:29 Diet: Cardiac - Heart Healthy Is pt able to select menu?: Yes Wound(s) LEFT LATERAL HIP: Wound Type: Surgical Incision Dressing Change: Remove Mepilex dressing on March 16, 2022 Lower back, MAC local: Wound Type: Puncture Therapies Weight Bearing: Weight bearing as tolerated (With walker. ) Physical Therapy: Eval and Treat (Follow postoperative dislocation precautions for 3 months postoperatively) Occupational Therapy: Eval and Treat Problem/Diagnosis (1) Status post left hip replacement: Status: Acute Code(s): Z96.642 - Presence of left artificial hip joint Plan: 1. S/P conversion previous hip surgery to a posterior left total hip art hroplasty POD #2 2. Continue Pain Medications: Tylenol and oxycodone 3. DVT Prophylaxis: Xarelto for 4 weeks postoperatively as patient has a anaphylaxis reaction to aspirin. 4. PT/OT: Weightbearing as tolerated with walker. Continue with posterior hip dislocation precautions for 3 months postoperatively 5. H & H: 12.0/36.2, asymptomatic. Postoperative anemia secondary to acute blood loss from surgery without any intra operative complications. 6. Reactive leukocytosis: Trending down and currently at 12.3, afebrile. Patient did receive Decadron intraoperatively. No signs clinically of underlying infection. 7. Continue postoperative medical management per medicine: Patient does have history of chronic obstructive pulmonary disease/emphysema and does require oxygen 2 L at nighttime. Also with sleep apnea. 8. Encouraged Incentive Spirometry 9. Disposition: Case management is currently involved in appropriate discharge planning and placement. Patient will continue above medications while in the hospital. Continue with physical therapy while in the hospital. Plan will be for possible discharge to senior care facility as long as approval can be obtained. I did discuss with the patient that if approval was not obtained will need to consider home with home health therapy or outpatient therapy. She voiced understanding and agreement with treatment plan. Prescriptions will be placed on the chart. Patient will follow-up per postop instructions. Therapy will need to be established with counseling case manager if patient is not able to go to senior care facility. I also recommend she follow-up with her primary care physician in approximately 10 days postoperatively. She voiced understanding agreement. I discussed with her patient's resting tachycardia and she states she does not have any feelings of palpitations or racing heart. Case was discussed with Dr. Josh Wells. I have reviewed the [place] Automated Rx Reporting System (OARRS) report for this patient for refill pattern and other prescriber involvement as part of the appropriate surveillance for the provision of acute and chronic controlled medications. The report was requested and reviewed on the date of this entry and was considered in the prescribing process. This dictation was created using voice recognition software. Phonetic and/or grammatical errors may exist. Allergies/Procedures Done in Hospital Allergies aspirin Allergy (Mild, Verified 03/11/22 11:22) unkown coconut Allergy (Mild, Verified 03/11/22 11:22) unknown meperidine [From Demerol] Allergy (Mild, Verified 03/11/22 11:22) unknown morphine Allergy (Mild, Verified 03/11/22 11:22) unknown penicillin V Allergy (Mild, Verified 03/11/22 11:22) unkown promethazine [From Phenergan] Allergy (Mild, Verified 03/11/22 11:22) unknown Sulfa (Sulfonamide Antibiotics) Adverse Reaction (Verified 03/11/22 11:22) Upset Stomach Type of Care/Length of Stay Estimated LOS: Convalescent Care Less Than 30 days Type of Care Needed: Skilled Rehab Potential: Good Prognosis: Good Additional Orders/Day of Discharge Day of Discharge: 03/13/22 Dietary and Speech Recommendations Dietitian Recommendations/Changes: Continue Cardiac diet and Ensure Surgery TID with medpass Follow Up Care Please Follow Up With: Dustin Melton PA-C When: March 26, 2022 at 1:15 PM Discharge Plan Admission Admit Date/Time: 03/11/22 17:58 Attending Provider: Josh Wells Primary Care Provider: Milvia Dave Consulting Providers: Ramos Oliveira ; Lavelle Blackburn Discharge Orders/Prescriptions Prescriptions: New acetaminophen 500 mg Tablet 1,000 mg PO Q8 14 Days Qty: 100 0RF Rx Instructions: Do not take more than 3000 mg Tylenol in a 24-hour period. oxycodone 5 mg Tablet 5 - 10 mg PO Q4H PRN PRN (Reason: Pain Score 4-10) 5 Days Qty: 60 0RF Xarelto 10 mg Tablet 10 mg PO 0600 Qty: 26 0RF Rx Instructions: Take for 4 weeks postoperatively for DVT prophylaxis secondary to total hip arthroplasty sennosides-docusate sodium [Stool Softener-Stimulant Laxat] 8.6-50 mg Tablet 2 tab PO BID Qty: 12 0RF Rx Instructions: Take until first bowel movement, then as needed Continued ergocalciferol (vitamin D2) 50,000 unit capsule 50,000 unit PO MO amlodipine 10 mg tablet 5 mg PO QHS cholecalciferol (vitamin D3) [Vitamin D3] 125 mcg (5,000 unit) Tablet 125 mcg PO DAILY cyclobenzaprine 10 mg Tablet 10 mg PO QHS quetiapine [Seroquel] 200 mg Tablet 200 mg PO QHS ropinirole 2 mg Tablet 2 mg PO QHS Rx Instructions: administer 1-3 hours before bedtime oxybutynin chloride 5 mg Tablet Extended Release 24hr 5 mg PO QHS aripiprazole 5 mg Tablet 5 mg PO QHS gabapentin 300 mg Tablet 300 mg PO BID Discontinued etodolac 400 mg Tablet 400 mg PO BID PRN (Reason: Pain) Other Ambulatory Orders: Chest PA and Lateral (Routine) Timeframe: [id number] Facility: [facility] - Location: [facility] Ordered By: Dr. Josh Wells Referrals / Follow Up: Milvia Dave DO [Primary Care Provider] - (follow up in 10-14 days with primary care physician) Dustin Melton PA-C [PHYSICIAN WEB PRESS OPERATOR HELPER OFFSET] - 03/26/22 1:15 pm
[2022-03-13] MEDS: Meloxicam 7.5 MG Tablet PO (09:09)
[2022-03-13] MEDS: Cholecalciferol (Vit D3) 125 MCG CAPSULE (5,000 UNITS) PO (09:10)
[2022-03-13] MEDS: Famotidine 20 MG Tablet PO (09:10)
[2022-03-13] MEDS: Senna/Docusate Sodium 1 Tablet 2 TABLET PO (09:10)
[2022-03-13] MEDS: Gabapentin 300 MG Capsule PO (09:10)
--- NOTE | 2022-03-13 09:42 | CASEMGMT ---
Discharge Glass Maker BENIGNO Nguyen asked [place] D/C to fax over more current PT/OT notes to Wallace Jordan Discharge Glass Maker
--- NOTE | 2022-03-13 12:22 | CASEMGMT ---
Social Work SW spoke with Aarti at [facility]. They have reviewed most recent therapy notes and state pt does not have a skilled need and therefore cannot admit under insurance. SW met wit pt and informed of this. Although frustrated, pt is understanding and states she will just return home today. Pt states concerns with housing situation as her landlords do not take care of the mobile home. SW provided pt with information from [facility] for Property Maintenance Issues. Pt states she has needed DME and her sister will pick her up. Pt will need out patient Therapy and pt would like to use [facility]. SW offered to set up appointment for PT and pt denied stating she would like to set up her own appointment as she has to coordinate with her transportation. CHAVA Chan updated and will fax script for PT to [facility]. Plan: D/C home with family. Outpatient PT MALIK Reddy
--- NOTE | 2022-03-13 12:28 | PCM.DC ---
Discharge Instructions Diet Discharge Diet: No restrictions Activity Discharge Activity: May Not Drive (while taking narcotic pain medications.) May shower in (days): 1 (only if incision is dry and without drainage. Do NOT soak/submerge in tub/pool/[place]/stream/hot tub.)) Ice area for (Minutes): 20 (Every 1-2 [address] barrier between ice and skin.) Weight Bearing Status: Weight bearing as tolerated Keep extremity elevated above heart level: Operative Extremity Additional Activity Instructions:: Follow [facility] Post-op Instructions. Once postoperative dressing has been removed only use gentle soap and water over the incision. Do not use any ointments, Neosporin, salves, alcohol pads over the incision for 6 weeks postoperatively. Do not submerge underwater for 6 weeks postoperatively. Wear elastic stockings for 2 weeks. Do NOT use alcohol with narcotic pain medication. Do NOT make important decisions while taking narcotic medication. If you have problems with taking your medication (rash, itching, nausea, etc.) call the office at once. Dressing / Incision Call your doctor if your incision/area has: Continuous Slow Oozing, Sudden Increased Bleeding, Increased Pain/ Swelling, Increased Redness and Foul Smelling Discharge Call your doctor if you observe: Fever of 101 or Higher, Shortness of breath, Chest pain, Calf discomfort and Uncontrolled pain Remove Dressing in: 3 days (Okay to remove dressing on March 16, 2022) Additional Dressing/Incision Instructions:: Follow [facility] Post-op Instructions. Once postoperative dressing has been removed, only use gentle soap and water over the incision. Do not use any ointments, Neosporin, salves, alcohol pads over the incision for 6 weeks postoperatively. Do not submerge underwater for 6 weeks postoperatively. Continue with ADORE hose/elastic stockings for 2 weeks postoperatively. May remove at nighttime but needs to be placed back on the leg during the day. Do NOT use alcohol with narcotic pain medication. Do NOT make important decisions while taking narcotic medication. If you have problems with taking your medication (rash, itching, nausea, etc.) call the office at once. Follow posterior hip dislocation precautions for 3 months post-operatively Follow Up Care Please Follow Up With: Dustin Melton PA-C Test Results: Test results from this visit will be discussed in further detail at your follow-up appointment, if applicable. Discharge Plan Admission Admit Date/Time: 03/11/22 17:58 Attending Provider: Josh Wells Primary Care Provider: Milvia Dave Consulting Providers: Ramos Oliveira ; Lavelle Blackburn Discharge Orders/Prescriptions Prescriptions: New acetaminophen 500 mg Tablet 1,000 mg PO Q8 14 Days Qty: 100 0RF Rx Instructions: Do not take more than 3000 mg Tylenol in a 24-hour period. oxycodone 5 mg Tablet 5 - 10 mg PO Q4H PRN PRN (Reason: Pain Score 4-10) 5 Days Qty: 60 0RF Xarelto 10 mg Tablet 10 mg PO 0600 Qty: 26 0RF Rx Instructions: Take for 4 weeks postoperatively for DVT prophylaxis secondary to total hip arthroplasty sennosides-docusate sodium [Stool Softener-Stimulant Laxat] 8.6-50 mg Tablet 2 tab PO BID Qty: 12 0RF Rx Instructions: Take until first bowel movement, then as needed Continued ergocalciferol (vitamin D2) 50,000 unit capsule 50,000 unit PO MO amlodipine 10 mg tablet 5 mg PO QHS cholecalciferol (vitamin D3) [Vitamin D3] 125 mcg (5,000 unit) Tablet 125 mcg PO DAILY cyclobenzaprine 10 mg Tablet 10 mg PO QHS quetiapine [Seroquel] 200 mg Tablet 200 mg PO QHS ropinirole 2 mg Tablet 2 mg PO QHS Rx Instructions: administer 1-3 hours before bedtime oxybutynin chloride 5 mg Tablet Extended Release 24hr 5 mg PO QHS aripiprazole 5 mg Tablet 5 mg PO QHS gabapentin 300 mg Tablet 300 mg PO BID Discontinued etodolac 400 mg Tablet 400 mg PO BID PRN (Reason: Pain) Other Ambulatory Orders: Chest PA and Lateral (Routine) Timeframe: [id number] Facility: [facility] - Location: [facility] Ordered By: Dr. Josh Wells Referrals / Follow Up: Milvia Dave DO [Primary Care Provider] - (follow up in 10-14 days with primary care physician) Dustin Melton PA-C [[facility] [employer] [facility] [employer]] - 03/26/22 1:15 pm
--- NOTE | 2022-03-13 15:15 | CASEMGMT ---
NORMA LAYTON NOTE: Pt requesting crutches, stating she thought her benefit plan would cover for them, but found out it does not. Dr Wells signed Rx for crutches and crutches obtained from ED supply and provided to pt. Pt denies having other discharge planning needs or concerns. Shanell CORDERO RN CM
== END 2022-03-13 15:48 | disposition home or self-care (01) | DRG 470 ==
LOC: SDC 15:35 → MS3 15:35
PROVIDERS: Anesthesiology; Physician Assistant Surgical; Admitting Provider Specialist; PCP Family Medicine; Referring Provider Specialist; Visit Provider Specialist
PROC: 8E0Y0CZ Robotic Assisted Procedure of Lower Extremity, Open Approach (ICD-10-PCS; CPT 27130; principal; 2022-03-11 13:00)
DX: M16.0 Bilateral primary osteoarthritis of hip (principal); D62 Acute posthemorrhagic anemia; F31.9 Bipolar disorder, unspecified; J43.9 Emphysema, unspecified; E78.00 Pure hypercholesterolemia, unspecified; K21.9 Gastro-esophageal reflux disease without esophagitis; J45.909 Unspecified asthma, uncomplicated; G47.30 Sleep apnea, unspecified; G25.81 Restless legs syndrome; F12.90 Cannabis use, unspecified, uncomplicated; I10 Essential (primary) hypertension; F17.210 Nicotine dependence, cigarettes, uncomplicated
CPT/HCPCS: 36415; 73502; 80048; 80076; 82962; 83735; 85025; 85027; 85610; 85730; 87081; 88305; 88311; 97110; 97116; 97162; 97166; 97530; 97535; 97802; 99251; 99406; C1776; J7120; A4216; G0463; J3475

== ENCOUNTER → 2025-07-25 | Outpatient (CLI) | payer MEDICARE, MEDICAID, SELFPAY ==
--- NOTE | 2025-07-25 14:18 | RAD_ITS ---
PROCEDURE: ABDOMEN SINGLE VIEW 07/25/2025 REASON FOR EXAM: KIDNEY STONE TECHNIQUE: Procedure Code: RADABD Modality: DX Procedure: ABDOMEN SINGLE VIEW COMPARISON: None. FINDINGS: There is a nonobstructive bowel gas pattern. There are multiple punctate calcifications projected over the right renal outline. There are cholecystectomy clips in the right upper quadrant of the abdomen. There is a left total hip arthroplasty. There is mild multilevel degenerative disc disease of the lumbar spine. RAD/Abdomen Single View IMPRESSION: Punctate calcifications projected over the right renal outline consistent with nephrolithiasis. Other findings as noted. Reading Location: [place] [id number]
== END | disposition home or self-care (01) ==
LOC: MTRAD 14:18
PROVIDERS: PCP Nurse Practitioner Family; Referring Provider Urology; Visit Provider Urology
DX: N20.0 Calculus of kidney (principal)
CPT/HCPCS: 74018

== ENCOUNTER 2025-08-23 07:40 | Day surgery (SDC) | payer MEDICARE, MEDICAID, SELFPAY ==
[2025-08-15 10:00] LABS: Hematocrit 42.9 % (37-47); Hemoglobin 13.8 g/dL (12.0-15.0); Mean Corp Hgb Conc 32.2 g/dL (32-36); Mean Corpuscular Volume 94.3 fL (81-99); Mean Platelet Vol. 10.5 fl (6.2-12.0); Platelet Count 292 K/mm3 (150-450); RBC Distribution Width CV 14.7 % (11.6-14.6); RBC Distribution Width SD 51.2 fl (35.1-43.9); Red Blood Count 4.55 M/mm3 (4.2-5.4); White Blood Count 9.2 K/mm3 (4.4-11.0)
[2025-08-15 10:20] LABS: Anion Gap 12 (5-15); BUN 12 mg/dL (4-19); BUN/Creat Ratio 15.5 RATIO (10-20); Calcium,Total 10.0 mg/dL (7.6-11.0); Carbon Dioxide 22.8 mmol/L (21.0-32.0); Chloride 104 mmol/L (98-108); Glucose 101 mg/dL (70-99); Potassium 4.5 mmol/L (3.3-5.1)
[2025-08-23] VITALS (12 sets, daily range): BP systolic 101–165; BP diastolic 72–90; PULSE 71–94; RESP 16–18; TEMP 34.4–36.9; O2SAT 89–100; BMI 26.5
--- OUTSIDE RECORDS SUMMARY | 2025-08-23 07:45 | XMS RPT_ITS | CCD ---
Author Organization [facility] Care Team Providers Care Paying Teller Name Role Phone STEVEN BRANTLEY Unavailable Unavailable FLORINDA COELHO Unavailable Unavailable JAMES, FLORINDA CASTELLANOS Unavailable Unavailable STEVEN BRANTLEY Unavailable Unavailable JAMES, FLORINDA CASTELLANOS Unavailable Unavailable JAMES, FLORINDA CASTELLANOS Unavailable Unavailable Ajay Fair Unavailable Unavailable Ajay Fair Unavailable Unavailable Florinda Arnold Unavailable Unavailable Meño Albert MD Unavailable Unavailable Primary Care Provider Unavailabl e Unavailable Primary Care Provider Unavailabl e Dr. Josh Wells Admit Provider Dr. Josh Wells Referring Provider Dr. Josh Wells Other Provider [phone] Milvia Dave Primary Care Provider Dr. Ramos Oliveira Attending Provider [phone] Dr. Ramos Oliveira Other Provider Mel Davis Attending Unavailable Aime Neves NP Primary Care Unavailable Milvia Dave Referring Unavailable Dr. Milvia Dave DO Referring Provider Dr. Mel Davis MD Attending Physician Liv MAST-Aime Escalante Primary Care Physician [phone] Allergies Allergy Classification Reported Allergen(s) Allergy Type Date of Onset Reaction(s) Facility (9 sources) aspirin; Translations: [aspirin] Drug Allergy 10-09-19 Anaphylaxis [facility] Repository (1 source) meperidine; Translations: [Demerol HCl] Drug Allergy [facility] Repository (8 sources) morphine; Translations: [morphine] Drug Allergy 10-09-19 Hives [facility] Repository (4 sources) Penicillins; Translations: [penicillins] Propensity to adverse reactions to drug (disorder) 10-09-19 Hives, Anaphylaxis, Rash [facility] Repository (1 source) promethazine; Translations: [Phenergan] Drug Allergy [facility] Repository (1 source) House dust mite; Translations: [DUST MITES] allergy to substance 02-17-20 [facility] Work Phone: (1 source) Meperidine Drug Allergy 02-17-20 19 hives, swelling [facility] Work Phone: (1 source) Morphine Drug Allergy 02-17-[address] [facility] Work Phone: (1 source) Penicillin Drug Allergy 02-17-[address] [facility] Work Phone: (1 source) Promethazine Drug Allergy 02-17-20 patient stated that she feels like she has lead in her bones, vomiting [facility] Work Phone: (1 source) Sulfacetamide Drug Allergy 02-17-[address] [facility] Work Phone: (1 source) STINING INSECTS; Translations: [STINING INSECTS] allergy to substance 02-17-20 [facility] Work Phone: (6 sources) Meperidine Drug Allergy 10-09-19 19 Hives [place], [place] (3 sources) Meperidine Drug [facility]-20 [facility] [place] [place] [facility] Promethazine Drug Allergy 10-09-19 19 Hives, Other (See Comments) [place] (3 sources) Sulfonamides (Antibiotic) Propensity to adverse reactions to drug 02-18-20 18 [place] (3 sources) Coconut extract Drug Allergy 02-27-20 22 unknown [facility] (3 sources) Penicillin V Drug Allergy 02-27-20 unkown, Anaphylaxis [facility] (4 sources) Sulfonamides (Antibiotic); Translations: [Sulfa (Sulfonamide Antibiotics)] Propensity to adverse reactions 02-27-20 Upset Stomach, Itching [facility] Repository Comment on above: and upset stomach (1 source) Coconut extract Drug Allergy 06-25-20 [facility] Repository (1 source) HYDROmorphone Drug Allergy 06-25-20 [facility] Repository (1 source) Latex Drug allergy (disorder) 06-25-20 [facility] Repository (1 source) Meperidine Drug Allergy 06-25-20 [facility] Repository (1 source) Penicillin Drug Allergy 06-25-20 [facility] Repository (1 source) Promethazine Drug Allergy 06-25-20 [facility] Repository (1 source) HYDROmorphone Drug Allergy 06-25-20 Chest tightness [facility] Comment on above: and vomiting (1 source) Latex Allergy to substance 06-25-20 Rash [facility] Medications Current Medications Medication Drug Class(es) Dates Sig (Normalized) Sig (Original) amLODIPine 10 mg oral tablet (3 sources) Dihydropyridine Calcium Channel Ashly Start: 10-22-2017 take 5 mg by mouth at bedtime Amlodipine 10 mg tablet Active 5 mg PO AT BEDTIME October 22, 2017 12:00am Complies with drug therapy Start: 10-22-2017 take 5 mg by mouth at bedtime Amlodipine Active 5 MG PO AT BEDTIME October 22, 2017 1:00am ARIPiprazole 5 mg oral tablet (3 sources) Atypical Antipsychotic Start: 02-26-2022 take 1 tablet by mouth at bedtime Aripiprazole 5 mg Tablet Active 5 mg PO AT BEDTIME February 25, 2022 11:00pm Complies with drug therapy ciprofloxacin 500 mg oral tablet (4 sources) Quinolone Antimicrobial Start: 01-11-2022 End: 01-18-2022 take 1 tablet by mouth twice daily ciprofloxacin (CIPRO) 500 MG tablet Take 1 tablet by mouth 2 times daily for 7 days 14 tablet 0 01/11/2022 01/18/2022 Active Start: 03-18-2020 End: 03-25-2020 ciprofloxacin (CIPRO) tablet 500 mg cyclobenzaprine hydrochloride 10 mg oral tablet (3 sources) Muscle Relaxant Start: 02-26-2022 take 1 tablet by mouth at bedtime Cyclobenzaprine 10 mg Tablet Active 10 mg PO AT BEDTIME February 25, 2022 11:00pm Complies with drug therapy gabapentin 600 mg oral tablet (8 sources) Anti-epileptic Agent Start: 06-20-2025 take 1 tablet by mouth once daily Gabapentin 600 mg tablet Active 600 mg PO daily June 19, 2025 11:00pm Complies with drug therapy Start: 02-26-2022 End: 06-20-2025 take 1 tablet by mouth twice daily Gabapentin 300 mg Tablet Discontinued 300 mg PO TWICE A DAY February 25, 2022 11:00pm June 20, 2025 7:22am Start: 02-16-2019 GABAPENTIN 300 MG CAPS 1 capsule daily as needed GABAPENTIN [id number] Meño Albert MD gabapentin (NEUR ONTIN) 100 MG capsule Take 100 mg by mouth 3 times daily.. 0 Active 1 ml ketorolac tromethamine 30 mg/ml cartridge (4 sources) Nonsteroidal Anti-inflammatory Drug, Cyclooxygenase Inhibitor Start: 03-18-2020 ketorolac (TORADOL) injection 30 mg Start: 03-18-2020 End: 03-18-2021 take 1 tablet by mouth every six hours as needed for pain ketorolac (TORADOL) 10 MG tablet Take 1 tablet by mouth every 6 hours as needed for Pain 20 tablet 0 03/18/2020 Active lithium carbonate 150 mg oral capsule (3 sources) Start: 03-24-2019 take 1 capsule by mouth twice daily at mealtime lithium 150 MG capsule Take 1 capsule by mouth 2 times daily (with meals) 60 capsule 0 03/24/2019 Active melatonin 3 mg oral tablet (4 sources) Start: 03-24-2019 take 6.5 tablets by mouth once daily melatonin 3 MG TABS tablet Take 6.5 tablets by mouth daily 195 tablet 0 03/24/2019 Active Start: 02-16-2019 MELATONIN 10 M G TABS 2 tablets daily MELATONIN [id number] Neelima Martínez LPN ondansetron 8 mg disintegrating oral tablet (4 sources) Serotonin-3 Receptor Antagonist Start: 04-24-2020 ondansetron (ZOFRAN ODT) 8 MG TBDP disintegrating tablet Place 1 tablet under the tongue every 8 hours as needed for Nausea or Vomiting 20 tablet 0 04/24/2020 Active Start: 04-24-2020 End: 04-24-2020 ondansetron (ZOFRAN) injecti on 4 mg Start: 03-18-2020 End: 03-18-2020 ondansetron (ZOFRAN) injecti on 4 mg 24 hr oxybutynin chloride 5 mg extended release oral tablet (3 sources) Cholinergic Muscarinic Antagonist Start: 02-26-2022 take 1 tablet by mouth every twenty-four hours at bedtime Oxybutynin Chloride 5 mg Tablet Extended Release 24hr Active 5 mg PO AT BEDTIME February 25, 2022 11:00pm Complies with drug therapy 24 hr paliperidone 3 mg extended release oral tablet (3 sources) Atypical Antipsychotic Start: 03-24-2019 take 1 tablet by mouth once daily paliperidone (INVEGA) 3 MG extended release tablet Take 1 tablet by mouth daily 30 tablet 0 03/24/2019 Active QUEtiapine 200 mg oral tablet (3 sources) Atypical Antipsychotic Start: 02-26-2022 take 1 tablet by mouth at bedtime Quetiapine (Seroquel) 200 mg Tablet Active 200 mg PO AT BEDTIME February 25, 2022 11:00pm Complies with drug therapy rOPINIRole 2 mg oral tablet (7 sources) Nonergot Dopamine Agonist Start: 02-26-2022 take 1 tablet by mouth at bedtime Ropinirole 2 mg Tablet Active 2 mg PO AT BEDTIME February 25, 2022 11:00pm administer 1-3 hours before bedtime Complies with drug therapy Start: 02-16-2019 ROPINIROLE HCL 0.25 MG TABS 1 tablet daily ROPINIROLE HCL [id number] Neelima Martínez LPN 1000 ml sodium chloride 9 mg /ml injection (4 sources) Start: 01-11-2022 0.9 % sodium c hloride infusion Start: 04-24-2020 End: 04-24-2020 0.9 % sodium chloride bolus Start: 03-18-2020 End: 03-18-2020 0.9 % sodium chloride bolus sodium chloride flush 0.9 % injection 3 mL (2 sources) Start: 01-11-2022 sodium chlorid e flush 0.9 % injection 3 mL Start: 04-24-2020 sodium chlorid e flush 0.9 % injection 3 mL traZODone hydrochloride 50 mg oral tablet (3 sources) Serotonin Reuptake Inhibitor Start: 03-24-2019 take 1 tablet by mouth once daily as needed for sleep traZODone (DESYREL) 50 MG tablet Take 1 tablet by mouth nightly as needed for Sleep 30 tablet 0 03/24/2019 Active Completed/Discontinued Medications Medication Drug Class(es) Dates Sig (Normalized) Sig (Original) acetaminophen 500 mg oral tablet (2 sources) Start: 03-13-2022 End: 06-20-2025 Acetaminophen 500 mg Tablet Discontinued 1000 mg PO EVERY 8 HOURS 100 14 0 March 12, 2022 11:00pm June 20, 2025 7:23am Do not take more than 3000 mg Tylenol in a 24-hour period. Start: 03-13-2022 take 3000 mg by mout h every eight hours Acetaminophen Active 1000 MG PO EVERY 8 HOURS 100 14 March 13, 2022 12:00am Do not take more than 3000 mg Tylenol in a 24-hour period. acetaminophen 325 mg / HYDROcodone bitartrate 5 mg oral tablet (1 source) Opioid Agonist Start: 01-11-2022 End: 01-11-2022 HYDROcodone-acetaminophen (NORCO) 5-325 MG per tablet 1 tablet atorvastatin 20 mg oral tablet (4 sources) HMG-CoA Reductase Inhibitor Start: 02-16-2019 ATORVASTATIN CALCIUM 20 MG T ABS 1 tablet daily ATORVASTATIN CALCIUM [id number] Neelima Martínez LPN take 1 tablet by mouth once juan manuel y atorvastatin (LIPITOR) 80 MG tablet Take 80 mg by mouth daily 0 Active cholecalciferol 0.125 mg oral tablet (3 sources) Vitamin D Start: 02-26-2022 End: 06-20-2025 take 1 tablet by mouth once daily Cholecalciferol (Vitamin D3) (Vitamin D3) 125 mcg (5,000 unit) Tablet Discontinued 125 ug PO DAILY February 25, 2022 11:00pm June 20, 2025 7:23am docusate sodium 50 mg / sennosides, fci 8.6 mg oral tablet (2 sources) Start: 03-13-2022 End: 06-20-2025 Sennosides-Docusate Sodium (Stool Softener-Stimulant Laxat) 8.6-50 mg Tablet Discontinued 2 {tbl} PO TWICE A DAY 12 0 March 12, 2022 11:00pm June 20, 2025 7:23am Take until first bowel movement, then as needed ergocalciferol 1.25 mg oral capsule (3 sources) Provitamin D2 Compound Start: 10-22-2017 End: 06-20-2025 Ergocalciferol (Vitamin D2) 50,000 unit capsule Discontinued 85272 U PO MO October 22, 2017 12:00am June 20, 2025 7:23am etodolac 400 mg oral tablet (3 sources) Nonsteroidal Anti-inflammatory Drug Start: 02-26-2022 End: 03-13-2022 take 1 tablet by mouth twice daily as needed for pain Etodolac 400 mg Tablet Discontinued 400 mg PO TWICE A DAY as needed for Pain February 25, 2022 11:00pm March 13, 2022 5:44am 1 ml HYDROmorphone hydrochloride 1 mg/ml cartridge (2 sources) Opioid Agonist Start: 04-24-2020 End: 04-24-2020 HYDROmorphone (DILAUDID) injection 0.5 mg OXcarbazepine 300 mg oral tablet (1 source) Anti-epileptic Agent Start: 02-16-2019 OXCARBAZEPINE 300 MG TABS 1 tablet twice daily OXCARBAZEPINE [id number] Neelima Martínez LPN oxyCODONE hydrochloride 5 mg oral tablet (2 sources) Opioid Agonist Start: 03-13-2022 End: 06-20-2025 take 5-10 mg by mouth every four hours as needed for pain Oxycodone 5 mg Tablet Discontinued 5 - 10 mg PO EVERY 4 HOURS NEEDED as needed for Pain Score 4-10 60 5 0 March 13, 2022 June 20, 2025 7:23am Status post left hip replacement Presence of left artificial hip joint rivaroxaban 10 mg oral tablet (2 sources) Factor Xa Inhibitor Start: 03-13-2022 End: 06-20-2025 Rivaroxaban (Xarelto) 10 mg Tablet Discontinued 10 mg PO 0600 26 0 March 12, 2022 11:00pm June 20, 2025 7:23am Take for 4 weeks postoperatively for DVT prophylaxis secondary to total hip arthroplasty Problems Active Problems Problem Classification Problem Date Documented Da te Episodic/Chronic Abdominal pain (3 sources) Flank pain; Translations: [Flank pain] 06-25-2025 Episodic Alcohol-related disorders (1 source) Alcohol abuse; Translations: [Alcohol abuse, uncomplicated] 06-20-2025 Chronic Blindness and vision defects (1 source) Disorder of vision; Translations: [Unspecified visual loss] 06-20-2025 Chronic Essential hypertension (4 sources) Essential hypertension; Translations: [Essential (primary) hypertension] Chronic Genitourinary symptoms and ill-defined conditions (2 sources) Incontinence; Translations: [Mixed incontinence] 06-25-2025 Chronic Genitourinary symptoms and ill-defined conditions (2 sources) Nocturia; Translations: [Nocturia] 06-25-2025 Episodic Headache; including migraine (1 source) Frequent headache; Translations: [Frequent headaches] 06-20-2025 Episodic Joint disorders and dislocations; trauma-related (1 source) Traumatic arthropathy, left hip; Translations: [Traumatic arthropathy, left hip] Onset: 02-20-2019 02-20-2019 Chronic Nonspecific chest pain (1 source) Chest pain; Translations: [Chest pain, unspecified] Episodic Other acquired deformities (1 source) Unequal limb length (acquired), unspecified site; Translations: [Unequal limb length (acquired), unspecified site] Onset: 02-20-2019 02-20-2019 Episodic Other connective tissue disease (2 sources) History of repair of hip joint; Translations: [Presence of left artificial hip joint] 03-11-2022 Chronic Other connective tissue disease (1 source) Presence of left artificial hip joint; Translations: [Hip joint replacement] Chronic Other diseases of bladder and urethra (2 sources) Overactive bladder; Translations: [Overactive bladder] 06-25-2025 Chronic Other diseases of kidney and ureters (1 source) Kidney disease; Translations: [Disorder of kidney and ureter, unspecified] 06-20-2025 Episodic Other gastrointestinal disorders (1 source) Irritable bowel syndrome; Translations: [Irritable bowel syndrome without diarrhea] 06-20-2025 Chronic Other upper respiratory disease (1 source) Seasonal allergy; Translations: [Other seasonal allergic rhinitis] 06-20-2025 Chronic Residual codes; unclassified (2 sources) Sleep apnea; Translations: [Sleep apnea, unspecified] 03-11-2022 Chronic Comment on above: O2 2L AT NIGHT Residual codes; unclassified (1 source) Sleep apnea, unspecified; Translations: [Unspecified sleep apnea] Chronic Substance-related disorders (1 source) Other psychoactive substance abuse, uncomplicated; Translations: [Drug abuse] 06-20-2025 Chronic Unclassified (1 source) Pain; Translations: [Pain] Onset: 02-17-2018 Episodic Unclassified (1 source) Pain in left hip / M25.552(ICD-10) Onset: 02-17-2018 Unclassified (1 source) New Patient / [id number]() Onset: 02-17-2018 Unclassified (1 source) Paperwork / 111() Onset: 02-17-2018 Unclassified (1 source) Pain / 121() Onset: 02-17-2018 Urinary tract infections (6 sources) Pyelonephritis; Translations: [Urinary tract infectious disease] Onset: 06-25-2025 Episodic Past or Other Problems Problem Classification Problem Date Documented Da te Episodic/Chronic Suicide and intentional self-inflicted injury (3 sources) Suicidal behavior; Translations: [Suicide attempt, initial encounter] Onset: 03-21-2019 03-21-2019 Episodic Unclassified (1 source) Pain in left hip; Translations: [Pain in left hip] Onset: 02-17-2018 Unclassified (1 source) New Patient; Translations: [New Patient] Onset: 02-17-2018 Unclassified (1 source) Paperwork; Translations: [Paperwork] Onset: 02-17-2018 Unclassified (1 source) Problem Results Test Name Value Interpretation Reference Range Facility Laboratory - Chemistry and C hemistry - challengeOrdered By: Mel Davis on 06-25-2025 Bilirubin Ql (U) Negative [facility] Glucose Ql (U) Negative [facility] Ketones Ql (U) Negative [facility] pH (U) 6 [pH] [facility] Specific gravity (U) [Rel density] 1.010 [facility] Urobilinogen (U) [Mass/Vol] 0.9004782 mg/dL [facility] Laboratory - Hematology and Cell countsOrdered By: Mel Davis on 06-25-2025 Hemoglobin Ql (U) Negative [facility] Laboratory - UrinalysisOrder ed By: Mel Davis on 06-25-2025 Nitrite Ql (U) Negative [facility] Protein Ql (U) Negative [facility] MR/Ray 06-25-2025 MR/ALE [facility] [address], [address] [place] [address] OFFICE VISIT Date of Service: 06/25/25 MR#: [id number] Acct: [id number] Name: ROMY EVANS Rep #: [id number] : 1970 Provider: Dr. Mel Anderson i, MD Age/Sex: 54/F Location: [facility] Status: Signed Intake Vital Signs 03/12/22 10:51 06/25/25 14:31 Height 5 ft 10 in 5 ft 10 in Weight: 173 lb BMI 24.8 BP 109/85 H Pulse 92 Intake Visit Reasons: POSS. INFECTION OR STONE Chief Complaint: new patient- possible uti or stone Housing Liaison Required: No Accompanied by: self Is patient in pain?: No Allergies aspirin Allergy (Severe, Verified 06/25/25 14:29) Anaphylaxis latex Allergy (Severe, Verified 06/25/25 14:29) Rash meperidine (From Demerol) Allergy (Severe, Verified 06/25/25 14:29) Hives morphine Allergy (Severe, Verified 06/25/25 14:29) Hives penicillin V Allergy (Severe, Verified 06/25/25 14:29) Anaphylaxis Sulfa (Sulfonamide Antibiotics) Allergy (Severe, Verified 06/25/25 14:29) Itching coconut Allergy (Mild, Verified 06/25/25 14:29) unknown promethazine (From Phenergan) Allergy (Mild, Verified 06/25/25 14:29) unknown hydromorphone (From Dilaudid) Adverse Reaction (Verified 06/25/25 14:29) Chest tightness Medications ???Medication ???Instructions ???Recorded ???Confirmed ???Type amlodipine 10 mg tablet 5 mg PO QHS 10/22/17 06/25/25 Hist ory aripiprazole 5 mg tablet 5 mg PO QHS 02/26/22 06/25/25 Hist ory cyclobenzaprine 10 mg tablet 10 mg PO QHS 02/26/22 06/25/25 His tory oxybutynin chloride 5 mg 5 mg PO QHS 02/26/22 06/25/25 Hist ory tablet,extended release 24 hr quetiapine 200 mg tablet (Seroquel) 200 mg PO QHS 02/26/22 06/25/25 History ropinirole 2 mg tablet 2 mg PO QHS 02/26/22 06/25/25 Hist ory gabapentin 600 mg tablet 600 mg PO QDAY 06/20/25 06/25/25 H istory Nurse's Note: pomerene in MLB CT. not sure if infection or stone. incontinence since she was a little kid. Bladder scan PVR: <50cc [facility] Medical History History of ankle fracture Kidney problem Recurrent UTI Vision problems Pneumonia Pancreatitis Kidney stones Gall stones IBS (irritable bowel syndrome) Frequent headaches Drug abuse Seasonal allergies Alcohol abuse Wears glasses Wears dentures PTSD (post-traumatic stress disorder) Bipolar disorder Anxiety Marijuana use Arthritis Anemia High cholesterol Easy bruising Bladder disease Restless legs Migraine headache Difficulty chewing History of ulceration Gastric reflux Smoker Sleep apnea Emphysema, unspecified Asthma Shortness of breath on exertion History of pain when walking History of edema History of stress test Cardiology follow-up encounter Hx of dislocation of wrist Hx of dislocation of hip Hx of fracture of arm COPD (chronic obstructive pulmonary disease) Anxiety Hyperlipidemia Hypertension Surgical History Surgical shortening of tendon performed History of tooth extraction History of hip replacement History of dental surgery H/O tubal ligation S/P cholecystectomy Family History Mother Cervical cancer Epilepsy Ovarian cancer Sister Nonne's syndrome Son Embolism Uncle Parkinson's disease Brother STD (sexually transmitted disease) Other Alcoholism Anxiety Depression Mental disorder Psychiatric care Severe allergy Suicide attempt Social History Smoking Status: Current every day smoker tobacco type: cigarettes Smoking packs per day: 1 Smoking cigarettes per day: 20.0 alcohol intake: current alcohol intake frequency: holidays/special occasions only Alcohol type: wine substance use type: marijuana what type of physical activity do you participate in: none HPI HPI Urology Chief Complaint: new patient- possible uti or stone Details: ROMY EVANS, is a 54 F. She is here for evaluation and management of possible urinary tract infection or kidney stone. The episode was 2-3 weeks ago. She had left back pain with dark urine and bad odor. She was seen at [facility]. They did a CT and she was told she could have a stone or infection, they could not tell. She had symptoms for a couple of days. It resolved with antibiotics. She is voiding 15-20 times during the day, 3-4 times at night. There is urge incontinence where she cannot make it to the bathroom. There is stress incontinence with cough, laugh, sneeze, lifting, etc. She is using 3 thick pads in 24 hours. She has had this one urinary tract infections in the last year. She has not had visible blood in her urine. She is sexually active. No i (more content not included)... Normal [facility] No Panel InformationOrdered By: Mel Davis on 06-25-2025 Urine Leukocytes Positive [facility] Urine Non-Hemolyzed Blood Negative [facility] URINE CULTURE [CCL]on 2024 Bacteria identified Cx Nom (U) URCUL See Results Below See Below CULTURE, URINE ESCHERICHIA COLI >=100,000 CFU/ml Escherichia coli ORGANISM: ESCHERICHIA COLI ANTIBIOTIC NHUNG DILUTN NHUNG INTERP Ampicillin 4 Susceptible Cefazolin <=4 Susceptible For uncomplicated urinary tract infections, cefazolin results can be used to pre Ceftriaxone <=1 Susceptible Cefepime <=1 Susceptible Ertapenem <=0.5 Susceptible Meropenem <=0.25 Susceptible Ampicillin/Sulbact 4 Susceptible Piperacillin/Tazobac <=4 Susceptible Gentamicin <=1 Susceptible Tobramycin <=1 Susceptible Trimeth sulfameth <=20 Susceptible Ciprofloxacin <=0.25 Susceptible Nitrofurantoin 32 Susceptible This test was developed and its performance characteristics determined by the [facility] [place] ([facility] It has not been cleared or approved by the FDA. -[facility] is regulated under CLIA as qualified to perform high-complexity testing. This test is used for clinical purposes. It should not be regarded as investigational or for research. SOURCE: Urine (Nonspecific) [facility] [address] [place] [address] Tee Boogie III, M.D. [id number] SEND TO IC YES Normal [facility] Comment on above: Performed By: #### [id number] ####[facility],[address] [place] [address] [id number] CMP with eGFRon 05-17-2025 AGE 54 years Normal [facility] Comment on above: Performed By: #### [id number] #### [facility],[address] [place] [address] [id number] Albumin [Mass/Vol] 3.1 g/dL Low 3.4 - 5.0 [facility] Comment on above: Performed By: #### [id number] #### [facility],[address] [place], [place] [id number] Albumin/Globulin [Mass ratio] 0.7 {ratio} Low 0.9 - 1.6 [facility] Comment on above: Performed By: #### [id number] #### [facility],[address] [place] [address] [id number] ALK PHOS 133 U/L High 46 - 116 [facility] Comment on above: Performed By: #### 2 [id number] #### [facility],[address] [place] [address] [id number] ALT [Catalytic activity/Vol] 17 U/L Normal 16 - 63 [facility] Comment on above: Performed By: #### 2 [id number] #### [facility],[address] [place] [address] [id number] Anion gap [Moles/Vol] 11 mmol/L Normal 10 - 20 [facility] [facility] Comment on above: Performed By: #### 2 [id number] #### [facility],[address] [place] [address] 83946 AST [Catalytic activity/Vol] 17 U/L Normal 13 - 39 [facility] Comment on above: Performed By: #### 2 [id number] #### [facility],[address] [place] [address] 83432 B/C RATIO 18 ratio Normal 0 - 30 [facility] Comment on above: Performed By: #### 2 [id number] #### [facility],[address] [place], [place] [id number] Bilirubin [Mass/Vol] 0.6 mg/dL Normal 0.2 - 1.0 [facility] Comment on above: Performed By: #### 2 [id number] #### [facility],[address] [place] [address] Calcium [Mass/Vol] 9.5 mg/dL Normal 8.5 - 10.1 [facility] Comment on above: Performed By: #### 2 40578 #### [facility],[address] [place] [address] Chloride [Moles/Vol] 100 mmol/L Normal 98 - 107 [facility] Comment on above: Performed By: #### 2 [id number] #### [facility],[address] [place] [address] CMP with eGFR Normal [facility] Comment on above: Result Comment: COMP REHENSIVE METABOLIC PANEL Performed By: #### 2 [id number] #### [facility],[address] [place], [place] [id number] CO2 [Moles/Vol] 26.6 mmol/L Normal 21.0 - 32.0 [facility] Comment on above: Performed By: #### 2 [id number] #### [facility],[address] [place], [place] [id number] Creatinine [Mass/Vol] 0.57 mg/dL Normal 0.55 - 1.02 [facility] Comment on above: Performed By: #### 2 [id number] #### [facility],[address] [place], [place] [id number] GFR/1.73 sq M.predicted among non-blacks MDRD (S/P/Bld) [Vol rate/Area] mL/min/{1.73_m2} Normal 60 - 999 [facility] Comment on above: Performed By: #### 2 [id number] #### [facility],[address] [place] [address] 02586 Result Comment: ACCO RDING TO THE NATIONAL KIDNEY DISEASE EDUCATION PROGRAM(NKDE), A NORMAL eGFR IS A VALUE GREATER THAN OR EQUAL TO 60 ML/MIN/1.73 SQ METERS. CHRONIC KIDNEY DISEASE: <60mL/MIN/1.73 SQ METERS KIDNEY FAILURE: <15mL/MIN/1.73 SQ METERS THIS TEST SHOULD ONLY BE USED FOR PATIENTS 18 YEARS OF AGE AND OLDER. Globulin (S) [Mass/Vol] 4.3 g/dL High 1.5 - 3.8 [facility] Comment on above: Performed By: #### 2 [id number] #### [facility],[address] [place] [address] 90438 Glucose [Mass/Vol] 91 mg/dL Normal 74 - 106 [facility] Comment on above: Performed By: #### 2 64220 #### [facility],[address] [place] [address] 11137 Potassium [Moles/Vol] 4.5 mmol/L Normal 3.5 - 5.1 [facility] Comment on above: Performed By: #### 2 [id number] #### [facility],[address] [place] [address] [phone] Protein [Mass/Vol] 7.4 g/dL Normal 6.4 - 8.2 [facility] Comment on above: Performed By: #### 2 35033 #### [facility],[address] [place] [address] 02926 Sodium [Moles/Vol] 133 mmol/L Low 136 - 145 [facility] Comment on above: Performed By: #### 2 [id number] #### [facility],[address] [place] [address] 55167 Urea nitrogen [Mass/Vol] 10 mg/dL Normal 7 - 18 [facility] Comment on above: Performed By: #### 2 02871 #### [facility],[address] [place] [address] 34561 ED MED ADMINISTRATION DETAIL on 05-17-2025 ED MED ADMINISTRATION DETAIL [employer] Operator - ROMY EVANS : 1970, , Medication Administration Record [address] [place] [address] [id number] 05/16/2025 Patient: ROMY EVANS Sex: Female : 1970 Age: 54y MEASUREMENTS: Wt: 81.6 kg, Ht/Haroldo: 70.0 in, BMI: 25.83 ALLERGIES: Demerol, Penicillins, Sulfa (Sulfonamide Antibiotics), aspirin, morphine Medication Ordered Medication Administration Date/Time IV NS 0.9 % 1000 23:48 05/16 IV NS 0.9 % 1000 mL started in bag#1 1000 mL at Started mL at 500 mL/hr 500 mL/hr via Site# 1. Allergies verified and confirmed 5 rights. IV 23:48 05/16/2025 (NOW x1) patency established. IV site checked: no pain, redness, or swelling. Susan Julien R.N. IV flushed thoroughly pre-medication administration. Information Stopped reviewed. Verbalizes understanding. - 23:48 Susan Julien R.N. 01:03 05/17/2025 Dylon Phoenix R.N. 01:03 05/17 Medication Discontinued: bag #1 infused. Total Scanned amount infused: 1000 mL. IV patency established. IV site checked: no pain, redness, or swelling. IV flushed thoroughly post-medication administration. - 01:13 Dylon Phoenix R.N. CefTRIAXone 23:48 05/16 CefTRIAXone (Rocephin) IVPB 2gm/50ml NS 2 g Started (Rocephin) IVPB started at 100 mL/hr diluted in sodium chloride IVPB 0.9 % 23:48 05/16/2025 2gm/50ml NS 2 g Minibag+ 50 mL via Site# 1. Allergies verified and confirmed 5 Susan Julien R.N. diluted in sodium rights. IV patency established. IV site checked: no pain, redness, or Stopped chloride IVPB 0.9 % swelling. IV flushed thoroughly pre-medication administration. - 00:08 05/17/2025 Minibag+ 50 mL at 23:48 Greg Pinzon R.N. 100 mL/hr (NOW x1) Scanned 00:05/17 Medication Discontinued: IV completed. Total amount infused: 50 mL. IV patency established. IV site checked: no pain, redness, or swelling. IV flushed thoroughly post-medication administration. - 00:08 Susan Julien R.N. 1 of 2 [employer] - ROMY EVANS, : 1970, , Medication Ordered Medication Administration Date/Time HYDROmorphone 00:05/17 HYDROmorphone (Dilaudid) IVP 0.5 mg given via Given (Dilaudid) IVP 0.5 Site# 1. Allergies verified and confirmed 5 rights. IV patency 00:05/17/2025 mg (NOW x1, HIGH established. IV site checked: no pain, redness, or swelling. IV Susan Julien R.N. ALERT flushed thoroughly pre-medication administration. Information Scanned MEDICATION) reviewed. Verbalizes understanding. Medication Wastage: 0.5 mg wasted. - 00:08 Susan Julien R.N. 2 of 2 [facility] ED NURSES CLINICAL NOTEon ED NURSES CLINICAL NOTE Nurse Narrative - ROMY EVANS, : 1970, , Nurse Clinical [address] [address] [id number] 05/16/2025 19:08:00 Patient: ROMY EVANS Sex: Female : 1970 Age: 54y Disposition: Discharge to Home Disposition Decision Time: 00:59 05/17/2025 Departure Time: 01:04 05/17/2025 TRIAGE Arrived by private vehicle. Historian: (patient). Primary physician (Jeremy Neves). Triage time: 19:10 05/16/2025. Acuity: LEVEL 3. Chief Complaint: BACK PAIN and (left sided back pain, states not sure if kidney infection). Onset. (2 - 3 days ago). ( pain worsening today). No history of recent trauma. SEPSIS SCREEN: NEGATIVE. SIRS criteria negative: heart rate greater than 90. Possible sources of infection: UTI. -- 19:17 05/16/25 AUBRIE Larson R.N. 19:15 05/16/25. BP: 125/71 MAP: 89. HR: 100. RR: 18. O2 saturation: 95% Temperature: 98.3 F. Pain level now 04/15. -- 19:16 05/16/25 AUBRIE Larson R.N. Measurements: 19:05/16/25 Wt: 81.6 kg, Ht/Haroldo: 70.0 in, BMI: 25.83 -- 19:05/16/25 AUBRIE Lrason R.N. Medications: ropinirole 2 mg tablet: 1 tablet every night at bedtime. -- 19:05/16/25 AUBRIE Larson R.N. quetiapine 200 mg tablet: 1 tablet every night at bedtime. -- 19:05/16/25 AUBRIE Larson R.N. oxybutynin chloride 5 mg tablet: 1 tablet every night at bedtime. -- 19:05/16/25 AUBRIE Larson R.N. ropinirole 2 mg tablet: Stopped 05/16/2025. -- 19:05/16/25 AUBRIE Larson R.N. 1 of 5 Nurse Narrative - ROMY EVANS, : 1970, , quetiapine 200 mg tablet: Stopped 05/16/2025. -- 19:20 05/16/25 AUBRIE Larson R.N. oxybutynin chloride 5 mg tablet: Stopped 05/16/2025. -- 19:20 05/16/25 AUBRIE Larson R.N. gabapentin 600 mg tablet: Stopped 05/16/2025. -- 19:20 05/16/25 AUBRIE Larson R.N. gabapentin 600 mg tablet: 1 tablet once a day. -- 19:20 05/16/25 AUBRIE Larson R.N. aripiprazole 5 mg tablet: Stopped 05/16/2025. -- 19:20 05/16/25 AUBRIE Larson R.N. aripiprazole 5 mg tablet: 1 tablet every night at bedtime. -- 19:20 05/16/25 AUBRIE Larson R.N. amlodipine 5 mg tablet: Stopped 05/16/2025. -- 19:20 05/16/25 AUBRIE Larson R.N. amlodipine 5 mg tablet: 1 tablet once a day. -- 19:20 05/16/25 AUBRIE Larson R.N. 19:10 05/16/25. Preferred Pharmacy: ([facility]). -- 19:17 05/16/25 AUBRIE Larson R.N. Allergies: aspirin -- 19:12 05/16/25 AUBRIE Larson R.N. Demerol: hives -- 19:12 05/16/25 AUBRIE Larson R.N. morphine: hives -- 19:12 05/16/25 AUBRIE Larson R.N. Penicillins. (GI upset) -- 19:05/16/25 AUBRIE Larson R.N. Sulfa (Sulfonamide Antibiotics): dizziness. (GI upset) -- 19:13 05/16/25 AUBRIE Larson R.N. Home Medications/Allergy Information Source: patient -- 19:05/16/25 AUBRIE Larson R.N. Problems: Hypertension -- 19:05/16/25 AUBRIE Larson R.N. Hypercholesterolemia -- 19:05/16/25 AUBRIE Larson R.N. Myocardial Infarction -- 19:14 05/16/25 AUBRIE Larson R.N. Arthritis -- 19:05/16/25 AUBRIE Larson R.N. Surgeries: Hip Surgery. left -- 19:05/16/25 AUBRIE Larson R.N. right wrist tendon replacement -- 19:05/16/25 AUBRIE Larson R.N. History 2 of 5 Nurse Narrative - ROMY EVANS, : 1970, , 19:10 05/16/25. PAST MEDICAL HX: Other immunizations: up-to-date. LNMP: No menstrual periods. SOCIAL HX: Heavy tobacco smoker (cigarette)- less than 1 pack per day. Heavy drug use: marijuana, THC edibles. No alcohol use. The patient has not traveled outside the [place] Infectious disease exposure: No infectious disease exposure. ABUSE ASSESSMENT: The patient answered yes to the question(s) Do you feel safe in your home? and no to the question(s) Are you afraid to go home?. SELF HARM ASSESSMENT: Self harm assessment was performed. The patient answered no to the question(s) Have you recently felt down, depressed, or hopeless? and Do you have thoughts of harming or killing yourself?. FALL RISK ASSESSMENT: Fall risk assessment completed. No risk factors identified. -- 19:17 05/16/25 EDT Stefanie Larson R.N. Interventions 19:10 05/16/25. Advanced care plan discussed with patient (DNRCC). -- 19:17 05/16/25 EDT Stefanie Larson R.N. PHYSICAL ASSESSMENT 23:53 05/16/25. Ambulatory to room. Patient gowned. GENERAL / NEURO / PSYCH: Alert. Oriented X 4. Appears in no acute distress. ( pt c/o left flank pain since Wednesday, Wednesday, now states pain is sharp 9/10 on and off, denies any NV). RESPIRATORY: Respirations not labored. -- 23:58 05/16/25 EDT Dylon Phoenix R.N. NURSING PROGRESS NOTES 22:51 05/16/25. Site #1 started in the left hand with a 22g needle with good blo (more content not included)... Normal [facility] ED ORDER SHEET (CPOE ONLY)on 05-17-2025 ED ORDER SHEET (CPOE ONLY) Order Sheet - ROMY EVANS, : 1970, , Order Sheet [address] [address] [id number] 05/16/2025 Patient: ROMY EVANS Sex: Female : 1970 Age: 54y MEASUREMENTS: Wt: 81.6 kg, Ht/Haroldo: 70.0 in, BMI: 25.83 ALLERGIES: Demerol, Penicillins, Sulfa (Sulfonamide Antibiotics), aspirin, morphine MEDICATION/IV/DRIP/F LUID ORDERS Order Description Priority Entered Acknowledged Completed IV NS 0.9 %1000 mL at 500 22:07 05/16/2025 22:17 23:48 mL/hr (NOW x1) Toni Jordan, 05/16/2025 05/16/2025 Susan Trejo R.N. R.N. CefTRIAXone (Rocephin) IVPB 23:17 05/16/2025 23:48 2gm/50ml NS2 g diluted in Toni Jordan, 05/16/2025 sodium chloride IVPB 0.9 % Katerine Julien Minibag+ 50 mL at 100 mL/hr R.N. (NOW x1) Reason for ordering with alerts: Benefits outweigh risks --23:17 05/16/2025 Toni Jordan D.O. HYDROmorphone (Dilaudid) 00:00 05/17/2025 00:08 IVP0.5 mg (NOW x1, HIGH Toni Jordan, 05/17/2025 ALERT MEDICATION) Katerine Julien, R.N. Reason for ordering with alerts: Benefits outweigh risks --00:00 05/17/2025 Toni Jordan D.O. 1 of 3 Order Sheet - ROMY EVANS, : 1970, , LAB ORDERS Order Description Priority Entered Acknowledged Collected Completed CBC w Diff Stat Stat 22:07 05/16/2025 22:16 05/16/2025 23:04 05/16/2025 Dylon Lopez Brittany D.O. R.N. [place], R.N. Urinalysis Stat Stat 22:07 05/16/2025 22:16 05/16/2025 23:04 05/16/2025 Dylon Lopez Brittany D.O. R.N. [place], R.N. CMP Stat Stat 22:07 05/16/2025 22:16 05/16/2025 23:04 05/16/2025 Dylon Lopez Brittany D.O. R.N. [place], R.N. Urine Culture [CCL] Stat Stat 00:58 05/17/2025 01:00 05/17/2025 01:00 05/17/2025 Dylon Lopez Charles Wilbur, D.O. R.N. R.N. DIAGNOSTIC STUDY ORDERS Order Description Priority Entered Acknowledged Completed CT KUB (Kidney stone) Stat Stat 22:07 05/16/2025 22:16 23:05 Toni Jordan, 05/16/2025 05/16/2025 Kasandra Trejo R.N., R.N. Order Comments: 22:07 05/16/2025: Status: Not . Toni Jordan D.O. Reason for Study: Flank Pain STAFF ORDERS Order Description Priority Entered Acknowledged Collected Completed IV Saline Lock 22:07 05/16/2025 22:16 05/16/2025 23:04 05/16/2025 Dylon Lopez Brittany D.O. R.N. [place], R.N. 2 of 3 Order Sheet - ROMY EVANS, : 1970, , [Electronically signed by Toni Jordan D.O. (05/17/2025 01:49 EDT)] 3 of 3 Normal [facility] ED PHYSICIAN CLINICAL REPORT on 05-17-2025 ED PHYSICIAN CLINICAL REPORT Narrative - ROMY EVANS, : 1970, , Physician Clinical Narrative [address] [address] [id number] 05/16/2025 19:08:00 Patient: ROMY EVANS Sex: Female : 1970 Age: 54y Disposition: Discharge to Home Disposition Decision Time: 00:59 05/17/2025 Departure Time: 01:04 05/17/2025 Measurements Wt: 81.6 kg, Ht/Haroldo: 70.0 in, BMI: 25.83 Initial Vital Sign Measured Time BP MAP HR RR O2Sat ETCO2 Temp Pain GCS RTS 19:15 05/16/2025 125/71 89 100 18 95% 98.3 F 8 Time Seen: 21:56 05/16/2025. Arrived- By private vehicle. Historian- patient. HISTORY OF PRESENT ILLNESS Chief Complaint: LEFT FLANK PAIN. (Patient came in complaining of left-sided flank pain started on Wednesday and it just got progressively worse today and she could not tolerate and presents to the emergency department has a sharp pain that is a constant pain nothing makes it better or worse. She denies any burning with urination or frequency. She has never had a history of kidney stones that she knows of. What she has had plenty of urinary tract infections and pyelonephritis. She has seen a urologist in [place] which she thinks is Dr. Kaufman. She denies any fevers or chills.). Still present. The symptoms are described as severe. The patient has had flank pain. No abdominal pain, pelvic pain, pain with urination, urinary frequency or urgency of urination. REVIEW OF SYSTEMS Shahram - ROMY EVANS, : 1970, , SKIN: No skin rash. RESPIRATORY: No cough. EYES: No eye discomfort. CONSTITUTIONAL: No anorexia. NEUROLOGICAL: No headache. GI: The patient has had nausea. No vomiting or diarrhea. Status: Not . PAST HISTORY See nurses notes. Arthritis Hypercholesterolemia Hypertension Myocardial Infarction Surgeries: Hip Surgery: Body Site left right wrist tendon replacement Medications: amlodipine 5 mg tablet: 1 tablet once a day. amlodipine 5 mg tablet: Stopped 05/16/2025. aripiprazole 5 mg tablet: 1 tablet every night at bedtime. aripiprazole 5 mg tablet: Stopped 05/16/2025. gabapentin 600 mg tablet: 1 tablet once a day. gabapentin 600 mg tablet: Stopped 05/16/2025. oxybutynin chloride 5 mg tablet: 1 tablet every night at bedtime. oxybutynin chloride 5 mg tablet: Stopped 05/16/2025. quetiapine 200 mg tablet: 1 tablet every night at bedtime. quetiapine 200 mg tablet: Stopped 05/16/2025. ropinirole 2 mg tablet: 1 tablet every night at bedtime. ropinirole 2 mg tablet: Stopped 05/16/2025. Allergies: aspirin Demerol: hives morphine: hives Penicillins. (GI upset) Sulfa (Sulfonamide Antibiotics): dizziness. (GI upset) 2 of 10 ROMY Bliss, : 1970, , Home Medications/Allergy Information Source: patient - Stefanie Larson R.N., 05/16/2025 19:13 EDT SOCIAL HISTORY Current every day smoker. Drug use: marijuana. ADDITIONAL NOTES The nursing notes have been reviewed. PHYSICAL EXAM Appearance: Alert. Oriented X3. No acute distress. HEENT: Normal external inspection. ENT: Pharynx normal. Neck: Neck supple. CVS: Heart sounds normal. Respiratory: No respiratory distress. Breath sounds normal. Abdomen: Soft and nontender. Skin: Skin warm and dry. Normal skin color. Normal skin turgor. Extremities: Extremities nontender. No lower extremity edema. Neuro: Oriented X 3. Mood/affect normal. LABS, X-RAYS, AND EKG Laboratory Tests: CBC + DIFF Final DEV: 05/16/2025 22:45:00 EDT MsgRcvd: 05/16/2025 23:19 EDT Lab Test Result Reference Status Received 05/16/2025 23:19 CBC + DIFF Final EDT CBC-COMPLETE BLOOD COUNT 3 of 10 ROMY Bliss, : 1970, , 13.8 x 10/UL 05/16/2025 23:19 WBC 4.5 - 10.8 Final Above high normal EDT 05/16/2025 23:19 RBC 4.88 x 10/UL 4.10 - 5.30 Final EDT 05/16/2025 23:19 HEMOGLOBIN 15.3 g/dl 12.0 - 16.0 Final EDT 05/16/2025 23:19 HEMATOCRIT 43.7 % 34.0 - 46.0 Final EDT 05/16/2025 23:19 MCV 90 fl 80 - 99 Final EDT 05/16/2025 23:19 MCH 31 pg 27 - 33 Final EDT 05/16/2025 23:19 MCHC 35 X10 3 32 - 36 Final EDT 05/16/2025 23:19 RDW/CV 13.7 % 12.0 - 15.6 Final EDT 05/16/2025 23:19 PLATELET 342 x10/UL 150 - 450 Final EDT 05/16/2025 23:19 MPV 8.1 fl 6.6 - 10.5 Final EDT AUTOMATED DIFFERENTIAL 05/16/2025 23:19 NEUT % 75.8 % 46.0 - 76.0 Final EDT 16.1 % 05/16/2025 23:19 LYMPH % 20.0 - 45.0 Final Below low normal EDT 05/16/2025 23:19 MONOS % 6.7 % 0.0 - 10.0 Final EDT Narrative - ROMY EVANS, : 1970, , 05/16/2025 23:19 EO % 1.1 % 0.0 - 7.0 Final EDT (more content not included)... Normal [facility] ED [facility]ILL[facility]20[facility] ROMY EVANS, : 1970, , [address] [address] [id number] 05/16/2025 Patient: ROMY EVANS Sex: Female : 1970 Age: 54y Item Facility Professional Category Description Code Code Quantity Fee Total Drugs Normal Saline 726105 1 $0.00 $0.00 1000cc (389242) Nurse/E/M EMERGENCY 412493 1 $0.00 $0.00 DEPARTMENT VISIT HIGH/URGENT SEVERITY (83677-96) Nurse/IV/IM/Infusion s Drip/IVPB initial 026073 1 $0.00 $0.00 (52765) Nurse/IV/IM/Infusion s Hydration 895969 1 $0.00 $0.00 additional hour (86071) Nurse/IV/IM/Infusion s IVP additional 148332 1 $0.00 $0.00 push (13053) Grand Total $0.00 Providers Toni Jordan D.O. [address] [facility], : 1970, , Chief Complaint LEFT FLANK PAIN. Principal Diagnosis Acute nontraumatic pain in the left lower quadrant of the abdomen. ICD-10 Codes R10.32: Left lower quadrant pain 2 of 2 Normal [facility] ED VISIT SUMMARYon ED VISIT SUMMARY Visit Overview - ROMY EVANS : 1970, , Visit [address] [address] [id number] 05/16/2025 Patient: ROMY EVANS Sex: Female : 1970 Age: 54y 05/17/2025 01:49 AM EDT ED Arrival:19:08 05/16/2025 EDT Status:not Recent Travel:no Language:eng Adv Directive: Isolation Status: Ethnicity:N Fall Risk:no risk Infectious Disease Exposure:no Measurements:5'10 / 177.8 Self-Harm Status:risk Sepsis Screen:negative cm 180.0 lb / 81.6 kg Chief Complaint:BACK PAIN, (2 - 3 days ago), (Jeremy Neves), (left sided back pain, states not sure if kidney infection ), and (pain worsening today ) ALLERGIES aspirin Demerol - hives morphine - hives Penicillins Sulfa (Sulfonamide Antibiotics) - dizziness HOME MEDICATIONS 1 of 4 Visit Overview - RMOY EVANS, : 1970, , amlodipine 5 mg tablet: Stopped 05/16/2025. amlodipine 5 mg tablet: 1 tablet once a day. aripiprazole 5 mg tablet: Stopped 05/16/2025. aripiprazole 5 mg tablet: 1 tablet every night at bedtime. gabapentin 600 mg tablet: Stopped 05/16/2025. gabapentin 600 mg tablet: 1 tablet once a day. oxybutynin chloride 5 mg tablet: 1 tablet every night at bedtime. oxybutynin chloride 5 mg tablet: Stopped 05/16/2025. quetiapine 200 mg tablet: 1 tablet every night at bedtime. quetiapine 200 mg tablet: Stopped 05/16/2025. ropinirole 2 mg tablet: 1 tablet every night at bedtime. ropinirole 2 mg tablet: Stopped 05/16/2025. PAST MEDICAL HISTORY / PROBLEMS Arthritis Hypercholesterolemia Hypertension LNMP: No menstrual periods Myocardial Infarction Other immunizations: up-to-date See nurses notes PAST SURGICAL HISTORY Hip Surgery. left right wrist tendon replacement SOCIAL HISTORY Smoking status: Yes Alcohol use: No Drug use: Yes ED COURSE MEDICATIONS GIVEN IN EMERGENCY DEPARTMENT 2 of 4 Visit Overview - ROMY EVANS, : 1970, , CefTRIAXone (Rocephin) IVPB 2gm/50ml NS 2 g diluted in sodium chloride IVPB 0.9 23:48 05/16/25 % Minibag+ 50 mL 100 mL/hr 23:48 05/16/25 IV NS 0.9 % 1000 mL 500 mL/hr 00:08 05/17/25 HYDROmorphone (Dilaudid) IVP 0.5 mg IV SITE INFORMATION INTAKE OUTPUT REASSESMENT (most recent) 00:34 05/17/25. Reassessment after medication administered. Pain still present but improving. The patient is resting quietly. VITAL SIGNS First Vitals Last Vitals Temp 19:15 05/16/25 98.3 F Temp 01:02 05/17/25 BP 19:05/16/25 125/71 BP 01:02 05/17/25 HR 19:15 05/16/25 100 HR 01:02 05/17/25 115 RR 19:05/16/25 18 RR 01:02 05/17/25 O2 Sat 19:05/16/25 95% O2 Sat 01:02 05/17/25 98% Pain 19:05/16/25 8 Pain 01:02 05/17/25 ETCO2 19:05/16/25 ETCO2 01:02 05/17/25 GCS 19:15 05/16/25 GCS 01:02 05/17/25 RTS 19:15 05/16/25 RTS 01:02 05/17/25 PROCEDURES NURSING INTERVENTIONS LABS / STUDIES LABS / STUDIES ORDERED CBC w Diff CMP CT KUB (Kidney stone) Urinalysis Urine Culture [CCL] 3 of 4 Visit Overview - ROMY EVANS, : 1970, , CLINICAL IMPRESSION ACUTE NONTRAUMATIC PAIN IN THE LEFT LOWER QUADRANT OF THE ABDOMEN POSSIBLE ACUTE PYELONEPHRITIS POSSIBLE RENAL COLIC POSSIBLE URETEROLITHIASIS 4 of 4 Normal [facility] ED VITALS FLOW SHEETon 05-17 ED VITALS FLOW SHEET ROMY Richardson, : 1970, , Vital Sign Flow Sheet [address] [address] [id number] 05/16/2025 Patient: ROMY EVANS Sex: Female : 1970 Age: 54y Measurements Wt: 81.6 kg, Ht/Haroldo: 70.0 in, BMI: 25.83 Measured Time BP MAP HR RR O2Sat ETCO2 Temp Pain GCS RTS 01:02 05/17/2025 115 98% 00:57 05/17/2025 86 100% 00:56 05/17/2025 16 98.6 F 6 00:54 05/17/2025 163/99 117 86 00:52 05/17/2025 110 99% 00:47 05/17/2025 85 98% 00:42 05/17/2025 96 96% 00:38 05/17/2025 117/63 82 75 00:37 05/17/2025 98 98% 00:32 05/17/2025 82 100% 00:27 05/17/2025 88 93% 00:23 05/17/2025 110/69 80 87 00:22 05/17/2025 87 92% 00:17 05/17/2025 87 91% 00:12 05/17/2025 91 93% 1 of 2 ROMY Richardson, : 1970, , Measured Time BP MAP HR RR O2Sat ETCO2 Temp Pain GCS RTS 00:09 05/17/2025 115/69 84 86 00:07 05/17/2025 89 97% 00:02 05/17/2025 94 94% 23:57 05/16/2025 101 97% 23:54 05/16/2025 119/71 76 93 19:15 05/16/2025 125/71 89 100 18 95% 98.3 F 8 2 of 2 Normal [facility] CBC + DIFFon 05-16-2025 Baso # 0.04 x10EE3/UL Normal 0.00 - 0.10 [facility] Comment on above: Performed By: #### 2 [id number] ####[facility],[address] [place] [address] 29598 Basophils/100 WBC (Bld) 0.3 % Normal 0.0 - 2.0 [facility] Comment on above: Performed By: #### 2 [id number] ####[facility],[address] [place] [address] 98260 CBC + DIFF Normal [facility] Comment on above: Result Comment: CBC- COMPLETE BLOOD COUNT Performed By: #### 2 [id number] ####[facility],[address] [place] [address] 35948 EO # 0.15 x10EE3/UL Normal 0.00 - 0.50 [facility] Comment on above: Performed By: #### 2 [id number] ####[facility],[address] [place] [address] 31151 Eosinophils/100 WBC (Bld) 1.1 % Normal 0.0 - 7.0 [facility] Comment on above: Performed By: #### 2 [id number] ####[facility],[address] [place] [address] 24227 Erythrocyte distribution width (RBC) [Ratio] 13.7 % Normal 12.0 - 15.6 [facility] Comment on above: Performed By: #### 2 [id number] ####[facility],[address] [place] [address] Hematocrit (Bld) [Volume fraction] 43.7 % Normal 34.0 - 46.0 [facility] Comment on above: Performed By: #### 2 [id number] ####[facility],[address] [place] [address] Hemoglobin (Bld) [Mass/Vol] 15.3 g/dL Normal 12.0 - 16.0 [facility] Comment on above: Performed By: #### 2 [id number] ####[facility],[address] [place] [address] Lymph # 2.22 x10EE3/UL Normal 0.80 - 2.80 [facility] Comment on above: Performed By: #### 2 51025 ####[facility],[address] [place] [address] Lymphocytes/100 WBC (Bld) 16.1 % Low 20.0 - 45.0 [facility] Comment on above: Performed By: #### 2 86947 ####[facility],[address] [place] [address] MANUAL DIFF N/A Normal [facility] Comment on above: Performed By: #### 2 80086 ####[facility],[address] [place] [address] MCH (RBC) [Entitic mass] 31 pg Normal 27 - 33 [facility] Comment on above: Performed By: #### 2 63432 ####[facility],[address] [place] [address] MCHC 35 X10 3 Normal 32 - 36 [facility] Comment on above: Performed By: #### 2 68776 ####[facility],[address] [place], [place] [id number] MCV (RBC) [Entitic vol] 90 fL Normal 80 - 99 [facility] Comment on above: Performed By: #### 2 28636 ####[facility],[address] [place] [address]84 [place] # 0.93 x10EE3/UL Normal 0.20 - 1.00 [facility] Comment on above: Performed By: #### 2 95071 ####[facility],[address] [place] [address] 12325 MONOS % 6.7 % Normal 0.0 - 10.0 [facility] Comment on above: Performed By: #### 2 25253 ####[facility],[address] [place] [address] 56721 Morphology Cristian (Bld) [Interp] N/A Normal [facility] Comment on above: Performed By: #### 2 44465 ####[facility],[address] [place] [address] 51381 Neut # 10.42 x10EE3/UL High 1.50 - 7.10 [facility] Comment on above: Performed By: #### 2 84434 ####[facility],[address] [place] [address] 38649 Neutrophils/100 WBC (Bld) 75.8 % Normal 46.0 - 76.0 [facility] Comment on above: Performed By: #### 2 86035 ####[facility],[address] [place] [address] 93896 PLATELET 342 x10EE3/UL Normal 150 - 450 [facility] Comment on above: Performed By: #### 2 03434 ####[facility],[address] [place] [address] 66165 Platelet mean volume (Bld) [Entitic vol] 8.1 fL Normal 6.6 - 10.5 [facility] Comment on above: Result Comment: AUTO MATED DIFFERENTIAL Performed By: #### 2 31165 ####[facility],[address] [place] [address] 82804 RBC 4.88 x 10EE6/UL Normal 4.10 - 5.30 [facility] Comment on above: Performed By: #### 2 27095 ####[facility],[address] [place] [address] 97769 WBC 13.8 x 10EE3/UL High 4.5 - 10.8 [facility] Comment on above: Performed By: #### 2 83369 ####[facility],[address] [place] [address] KUB (KIDNEY STONE PROTOCO L)on 05-16-2025 CT KUB (KIDNEY STONE PROTOCOL) [place] [address] Patient: ROMY EVANS Phone#: : 1970 Age: 54 Gender: F Pt. Type: ER Account: [id number] Location: [facility] Ordering: TONI JORDAN Exam Date: 05/16/2025/22:15 Family Phys: Charge Code: [id number] Physician: Garfield Order #: [id number] Dose#: 12.0 PROCEDURE: CT ABDOMEN AND PELVIS WITHOUT CONTRAST COMPARISON: [facility] [place], CT, KUB W/O CON, 06/17/2021, 20:45. INDICATIONS: Flank pain. TECHNIQUE: After obtaining the patient's consent, CT images of the abdomen and pelvis were created without non-ionic intravenous contrast material. All CT scans at this facility use dose modulation, iterative reconstruction, and/or weight based dosing when appropriate to reduce radiation dose to as low as reasonably achievable. IV CONTRAST: No IV contrast used,ml TOTAL DOSE: 12.0 CTDIvol(mGy) FINDINGS: KIDNEYS: Nonobstructing calculus is present in the lower pole of the right kidney measuring 6 millimeters. There is no evidence of hydronephrosis. There is fullness of the left pelvocaliceal system without dilatation of the ureter. 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 Punctate calcification in the distal left ureter cannot be excluded versus recent passage of a calculus. ADRENALS: Normal. No mass or enlargement. URINARY BLADDER: There is thickening of the bladder wall. Correlate with cystitis. LIVER: Normal. No enlargement, atrophy, abnormal density, or significant focal lesion. BILIARY: The gallbladder is absent. PANCREAS: Normal. No lesion, fluid collection, ductal dilatation, or atrophy. SPLEEN: Normal. No enlargement or focal lesion. AORTA/VASCULAR: Calcification is present. No aneurysm. RETROPERITONEUM: Normal. No mass or adenopathy. BOWEL/MESENTERY: Normal. No visible mass, obstruction, or bowel wall thickening. ABDOMINAL WALL: Normal. No mass or hernia. PELVIC NODES: Normal. No adenopathy. PELVIC ORGANS: Normal. No visible mass. Pelvic organs appropriate for patient age. BONES: There is disc space narrowing at the L4-5 level. LUNG BASES: Normal. No visible pulmonary or pleural disease. Continued Report - Page 2 of 2 Patient: ROMY EVANS Phone#: : 1970 Age: 54 Gender: F Pt. Type: ER Account: [id number] Location: [facility] Ordering: TONI JORDAN Exam Date: 05/16/2025/22:15 Family Phys: Charge Code: [id number] Physician: Garfield Order #: [id number] Dose#: 12.0 OTHER: Negative. CONCLUSION: 1. There is fullness of the left renal pelvis and calices. The ureter is normal in caliber. Punctate calculus in the distal left ureter cannot be excluded. Pelvic structures are obscured by artifact related to left hip prosthesis. 2. Thickening of the urinary bladder wall. Correlate with cystitis. Dictated by: Ada Tapia MD on 05/17/2025 at 8:53 Approved by: Ada Tapia MD on 05/17/2025 at 9:03 Normal [facility] URINALYSISon 05-16-2025 Amorphous 1+ Normal [facility] Comment on above: Performed By: #### 2 50223 #### [facility],[address] [place] [address] Bacteria 3+ Normal [facility] Comment on above: Performed By: #### 2 48705 #### [facility],[address],[place] [address] Bilirubin Ql (U) Negative Normal NORMAL: NEGATIVE [facility] Comment on above: Performed By: #### 2 04795 #### [facility],[address] [place] [address] 01855 Casts NONE Normal [facility] Comment on above: Performed By: #### 2 09216 #### [facility],[address] [place] [address] 62229 Clarity (U) very cloudy Normal NORMAL: CLEAR [facility] Comment on above: Performed By: #### 2 88911 #### [facility],[address] [place], [place] [id number] Color (U) yellow Normal NORMAL: YELLOW [facility] Comment on above: Performed By: #### 2 57477 #### [facility],[address] [place] [address] 11381 Crystals LM Nom (Urine sed) NONE Normal [facility] Comment on above: Performed By: #### 2 43623 #### [facility],[address] [place] [address] 87284 Epi Cells OCC Normal [facility] Comment on above: Performed By: #### 2 86303 #### [facility],[address] [place] [address] 54785 Glucose Ql (U) NORM Normal NORMAL: NORMAL [facility] Comment on above: Performed By: #### 2 15316 #### [facility],[address] [place] [address] 41363 Hemoglobin Ql (U) 25 Abnormal NORMAL: NEGATIVE [facility] Comment on above: Performed By: #### 2 23678 #### [facility],[address] [place] [address] 38754 Ketone Negative Normal NORMAL: NEGATIVE [facility] Comment on above: Performed By: #### 2 19385 #### [facility],[address] [place] [address] 85979 Leukocytes 500 Abnormal NORMAL: NEGATIVE [facility] Comment on above: Performed By: #### 2 81803 #### [facility],[address] [place] [address] Mucous NONE Normal [facility] Comment on above: Performed By: #### 2 12390 #### [facility],[address] [place] [address] Nitrite Ql (U) Positive Normal NORMAL: NEGATIVE [facility] Comment on above: Performed By: #### 2 19348 #### [facility],[address] [place] [address] pH (U) 6 [pH] Normal NORMAL: 5.0-8.0 [facility] Comment on above: Performed By: #### 2 39829 #### [facility],[address] [place] [address] Protein Ql (U) 100 Abnormal NORMAL: NEGATIVE [facility] Comment on above: Performed By: #### 2 83153 #### [facility],[address] [place] [address] Rbc 0-5 Normal 0-3/hpf [facility] Comment on above: Performed By: #### 2 13701 #### [facility],[address] [place] [address] Sp Ennis 1.015 Normal NORMAL: 1.010-1.030 [facility] Comment on above: Performed By: #### 2 07018 #### [facility],[address] [place] [address] Specimen Type R Normal [facility] Comment on above: Performed By: #### 2 65471 #### [facility],[address] [place] [address] Urinalysis dipstick W Reflex Microscopic panel (U) SEE BELOW Normal [facility] Comment on above: Result Comment: MICR OSCOPIC Performed By: #### 2 62323 #### [facility],[address] [place] [address] Urobilinog NORM Normal NORMAL: NORMAL [facility] Comment on above: Performed By: #### 2 59881 #### [facility],[address] [place] [address] 89767 Wbc 16-25 Normal 0-5/hpf [facility] Comment on above: Performed By: #### 2 27214 #### [facility],[address] [place] [address] 69561 Yeast NONE Normal [facility] Comment on above: Performed By: #### 2 14407 #### [facility],[address] [place] [address] CV ARTERIAL U OR L SINGLE PH [facility] 04-23-2025 CV ARTERIAL U OR L SINGLE [place] [address] Patient: ROMY EVANS Phone#: : 1970 Age: 54 Gender: F Pt. Type: Out Account: [id number] Location: [facility] Ordering: AIME NEVES Exam Date: 04/23/2025/11:14 Family Phys: Charge Code: [id number] Physician: Garfield Order #: [id number] Dose#: PROCEDURE: ARTERIAL BILAT U OR L SINGLE PHYSIOLOGY COMPARISON: [facility] [place], , ARTERIAL BILAT U OR L SINGLE PHYSIOLOGY, 02/09/2020, 13:52. INDICATIONS: Smoker TECHNIQUE: Resting continuous-wave Doppler recordings were obtained from the femoral, popliteal, tibial and dorsalis pedis arteries. Resting volume pulse recordings and segmental limb pressures were obtained at the upper thigh, lower thigh, upper calf and ankle levels. CONTINUOUS-WAVE DOPPLER RIGHT LEFT Posterior Tibial Artery Triphasic Biphasic Dorsalis Pedis Triphasic Triphasic SEGMENTAL SYSTOLIC LIMB PRESSURES RIGHT (mmHg) LEFT (mmHg) Brachial: 103 105 Ankle (DPA): 130 127 Ankle (LINOTYPE OPERATOR): 130 126 ANKLE BRACHIAL INDEX RIGHT LEFT 1.24 1.21 Infirm[facility] Attendant: GEMINI FINDINGS: Right Lower Extremity: The right lower extremity demonstrates normal triphasic Doppler signals at the posterior tibial, and dorsalis pedis arteries. Volume pulse recordings are normal throughout the extremity demonstrating a sharp systolic peak and prominent dicrotic notch. There are no significant pressure differentials in the segmental limb pressures when comparing side to side or from level to level. PPG waveform from the great digit was normal. Continued Report - Page 2 of 2 Patient: ROMY EVANS Phone#: : 1970 Age: 54 Gender: F Pt. Type: Out Account: [id number] Location: 052 Ordering: AIME NEVES Exam Date: 04/23/2025/11:14 Family Phys: Charge Code: [id number] Physician: Garfield Order #: [id number] Dose#: Left Lower Extremity: The left lower extremity demonstrates normal triphasic Doppler signals at the posterior tibial, and dorsalis pedis arteries. Volume pulse recordings are normal throughout the extremity demonstrating a sharp systolic peak and prominent dicrotic notch. There are no significant pressure differentials in the segmental limb pressures when comparing side to side or from level to level. PPG waveform from the great digit was normal. CONCLUSION: 1. The right RUBEN is 1.24. 2. Left RUBEN is 1.21. Dictated by: Ada Tapia MD on 04/23/2025 at 13:32 Approved by: Ada Tapia MD on 04/23/2025 at 13:33 Normal [facility] WRIST COMPLETE RTon 02-06-20 25 WRIST COMPLETE RT [place] [address] Patient: ROMY EVANS Phone#: : 1970 Age: 54 Gender: F Pt. Type: Out Account: [id number] Location: 052 Ordering: AIME NEVES Exam Date: 02/05/2025/12:13 Family Phys: Charge Code: [id number] Physician: Garfield Order #: [id number] Dose#: PROCEDURE: X-RAY WRIST RT COMPLETE MIN 3 VIEWS COMPARISON: None. INDICATIONS: Right wrist pain. FINDINGS: BONES: Degenerative changes are present at the wrist. There is well corticated lucency at the articular surface likely related to remote trauma. Dorsally there is bony projection at the distal radial metaphysis possibly related to remote trauma versus surgery. Overlying soft tissue thickening is present. SOFT TISSUES: Thickened soft tissue dorsally at the distal radial metaphysis. Discrete mass is not demonstrated. Further evaluation by ultrasound versus MRI. EFFUSION: None visible. OTHER: Negative. CONCLUSION: 1. Bony projection dorsally at the distal radial metaphysis possibly related to remote trauma or surgery. There is soft tissue thickening overlying this area. Discrete mass is not demonstrated. Further evaluation by ultrasound, MRI may be necessary. Dictated by: Ada Tapia MD on 02/05/2025 at 15:56 Approved by: Ada Tapia MD on 02/05/2025 at 16:55 Normal [facility] Absolute lymphocyte counton 03-13-2022 Lymphocytes Auto (Unsp spec) [#/Vol] 3.10 10*3/uL 0.83-4.51 [facility] [place] [facility] Work Phone: Basophil percentageon 2021 Basophils/100 WBC (Bld) 0.2 % 0-1 [facility] [place] [facility] Work Phone: Chloride [Moles/Vol] 108 mmol/L 98-[address] [facility] Work Phone: Eosinophils/100 WBC (Bld) 0.7 % 0-5 [facility] [place] [facility] Work Phone: Glucose [Mass/Vol] 97 mg/dL 74-[address] [facility] [address] [facility] Work Phone: Neutrophils (Bld) [#/Vol] 8.1 10*3/uL 2.0-7.7 [facility] [place] [facility] Work Phone: Neutrophils/100 WBC (Bld) 66.2 % 47-70 [facility] Work Phone: Potassium [Moles/Vol] 3.9 mmol/L 3.5-5.[address] [facility] Work Phone: Sodium [Moles/Vol] 140 mmol/L 136-[address] [facility] Work Phone: WBC (Bld) [#/Vol] 12.3 10*3/uL 4.4-11.0 [facility] Work Phone: Blood erythrocytes count (nu mber/volume)on 03-13-2022 RBC (Bld) [#/Vol] 3.90 10*6/uL 4.2-5.4 [facility] Work Phone: Blood hemoglobin measurement (mass/volume)on 03-13-2022 Hemoglobin (Bld) [Mass/Vol] 12.0 g/dL 12.0-15.0 [facility] [place] [facility] Work Phone: Blood lymphocytes/100 leukoc yteson 03-13-2022 Lymphocytes/100 WBC (Bld) 25.2 % 19-41 [facility] [place] [facility] Work Phone: Blood monocytes/100 leukocyt eson 03-13-2022 Monocytes/100 WBC (Bld) 7.3 % 0-10 [facility] [place] [facility] Work Phone: Blood platelet mean volumeon 03-13-2022 Platelet mean volume (Bld) [Entitic vol] 9.8 fL 6.2-12.0 [facility] [place] [facility] Work Phone: Determination of erythrocyte mean corpuscular volume (MCV)on 03-13-2022 MCV (RBC) [Entitic vol] 92.8 fL 81-99 [facility] [place] [facility] Work Phone: Hematocrit Auto (Bld) [Volum e fraction]on 03-13-2022 Hematocrit (Bld) [Volume fraction] 36.2 % 37-47 [facility] [place] [facility] Work Phone: Laboratory - Chemistry and C hemistry - challengeon 03-13-2022 CO2 [Moles/Vol] 27.0 mmol/L 21.0-32.0 [facility] [place] [facility] Work Phone: Urea nitrogen/Creatinine [Mass ratio] 19.2 mg/mg 10-20 [facility] Work Phone: Laboratory - Hematology and Cell countson 03-13-2022 Erythrocyte distribution width (RBC) [Entitic vol] 47.4 fL 35.1-43.9 [facility] [place] [facility] Work Phone: Erythrocyte distribution width (RBC) [Ratio] 14.0 % 11.6-14.6 [facility] Work Phone: Immature granulocytes/100 WBC (Bld) 0.400 % 0.0-0.9 [facility] [place] [facility] Work Phone: Comment on above: IG% - Immature Granu locytes (promyelocytes, myelocytes and metamyelocytes) > 1% indicates that a LEFT SHIFT is Present. MCH (RBC) [Entitic mass] 30.8 pg 27.0-32.0 [facility] [place] [facility] Work Phone: Nucleated RBC/100 WBC (Bld) [Ratio] 0 % 0-5 [facility] [place] [facility] Work Phone: MCHC Auto (RBC) [Mass/Vol]on 03-13-2022 MCHC (RBC) [Mass/Vol] 33.1 g/dL 32-36 [facility] Work Phone: No Panel Informationon 03-13 Estimated Creatinine Clearance Calc 90.20 ml/min [facility] Work Phone: Estimated GFR (MDRD) Amer 99 mL/min >60 [facility] Work Phone: Comment on above: GFR Calc Estimated GFR (MDRD) Non-Af Amer 82 mL/min >60 [facility] Work Phone: Comment on above: Non- GFR Calc Platelets bldon 03-13-2022 Platelets (Bld) [#/Vol] 241 10*3/uL 150-450 [facility] Work Phone: Serum or plasma calcium maira urement (mass/volume)on 03-13-2022 Calcium [Mass/Vol] 9.0 mg/dL 8.5-10.1 [facility] Work Phone: Serum or plasma creatinine m easurement (mass/volume)on 03-13-2022 Creatinine [Mass/Vol] 0.78 mg/dL 0.55-1.02 [facility] Work Phone: Comment on above: The validity of the calculated GFR & GFRAA in patients over 70 years has not been determined. Clinical correlation is essential. Serum or plasma urea nitroge n measurement (mass/volume)on 03-13-2022 Urea nitrogen [Mass/Vol] 15 mg/dL 7-18 [facility] Work Phone: Thin prep Papanicolaou smear with manual screeningon 03-13-2022 Thin prep Papanicolaou smear with manual screening 5 5-15 [facility] Work Phone: Glucose Glucometer (BldC) [M ass/Vol]on 03-11-2022 Glucose [Mass/Vol] 107 mg/dL 74-106 [facility] Work Phone: Comment on above: MANAGEMENT OF PATIEN T CARE PER NURSING PROTOCOL Basophil percentageon 2021 Bilirubin [Mass/Vol] 0.40 mg/dL 0.20-1.00 [facility] Work Phone: Comment on above: For patients on eltr ombopag therapy, use of Dimension [place] TBIL is not recommended. Protein [Mass/Vol] 8.8 g/dL 6.4-8.2 [facility] Work Phone: Direct bilirubinon Bilirubin.direct [Mass/Vol] 0.13 mg/dL 0.00-0.30 [facility] Work Phone: INR in Blood by Coagulation assayon 03-03-2022 INR Coag (Bld) [Relative time] 1.0 {INR} [facility] Work Phone: Laboratory - Chemistry and C hemistry - challengeon 03-03-2022 ALP [Catalytic activity/Vol] 154 U/L 45-117 [facility] Work Phone: ALT [Catalytic activity/Vol] 33 U/L 13-56 [facility] Work Phone: Globulin (S) [Mass/Vol] 4.7 g/dL 2.2-4.2 [facility] Work Phone: Magnesium [Mass/Vol] 2.1 mg/dL 1.6-2.6 [facility] Work Phone: Laboratory - Coagulationon 0 03-03-2022 aPTT Coag (Bld) [Time] 27.0 s 24.1-36.[address] [facility] Work Phone: PT Coag (PPP) [Time] 12.9 s 11.7-14.9 [facility] Work Phone: Serum or plasma albumin maira urement (mass/volume)on 03-03-2022 Albumin [Mass/Vol] 4.1 g/dL 3.2-5.0 [facility] Work Phone: Thin prep Papanicolaou smear with manual screeningon 03-03-2022 Thin prep Papanicolaou smear with manual screening 23 U/L 15-37 [facility] Work Phone: CULTURE URINEon 01-14-2022 CULTURE URINE 1 Organism Citrobacter freundii >100,000 CFU/ml For serious infections outside of the urinary tract, third generation cephalosporins may not be effective, even if test results indicate the organism is sensitive. 1 Organism Antibiotic Result Intrp Cefazolin(NHUNG) R Ceftriaxone(NHUNG) <= 1 S Cefepime(NHUNG) <= 1 S Aztreonam(NHUNG) <= 1 S Amoxicillin/Clavulan ic Acid(NHUNG) R Pip/Tazobactam(NHUNG) <= 4 S Meropenem(NHUNG) <= 0.25 S Ciprofloxacin(NHUNG) <= 0.25 S Trimeth/Sulfa(NHUNG) <= 20 S Nitrofurantoin(NHUNG) <= 16 S Gentamicin(NHUNG) <= 1 S Amikacin(NHUNG) <= 2 S Normal [facility] Comment on above: Performed By: #### C /UR ####[facility] [place] [address]Xknqh[facility] [place], [place] [id number]#### CUA2 ####[facility] [place] [address] Add On Lab Teston 01-11-2022 Add On Accepted [facility] Comment on above: Specimen available & acceptable for analysis. Test Performed by [facility], [address] [place], [place] [id number] [place] [address] LAB [facility] Add on test from HISon 01-11 Add on test from HIS Accepted Normal [facility] Comment on above: Result Comment: Spec imen available & acceptable for analysis. Performed By: #### A DDON #### [facility] [address] [place] [address] CBC with Auto Differentialon 01-11-2022 Absolute Baso # 0.1 10*3/uL 0.0 - 0.2 10*3/uL [facility] Absolute Neut # 7.5 10*3/uL High 1.8 - 7.0 10*3/uL [facility] Basophils/100 WBC (Bld) 0.9 % 0.0 - 2.0 % [facility] Eosinophils (Bld) [#/Vol] 0.2 10*3/uL 0.0 - 0.5 10*3/uL [facility] Eosinophils/100 WBC (Bld) 1.9 % 1.0 - 6.0 % [facility] Granulocytes/100 WBC (Bld) 68.6 % 40.0 - 80.0 % [facility] Hematocrit (Bld) [Volume fraction] 44.8 % 35.0 - 47.0 % [facility] Hemoglobin.gastrointes tinal spec 1 Ql (Stl) 15.0 g/dL 11.7 - 16.0 g/dL [facility] Interpretation and review of laboratory results Abnormal [facility] Lymphocytes (Bld) [#/Vol] 2.4 10*3/uL 1.0 - 4.3 10*3/uL [facility] Lymphocytes/100 WBC (Bld) 22.0 % 20.0 - 40.0 % [facility] MCH (RBC) [Entitic mass] 31.1 pg 26.0 - 34.0 pg [facility] MCHC (RBC) [Mass/Vol] 33.4 % 32.0 - 36.0 % [facility] MCV (RBC) [Entitic vol] 93.0 fL 79.0 - 98.0 fL [facility] Monocytes (Bld) [#/Vol] 0.7 10*3/uL 0.0 - 0.8 10*3/uL [facility] Monocytes/100 WBC (Bld) 6.6 % 2.0 - 10.0 % [facility] Platelet distribution width (Bld) [Ratio] 14.6 % High 11.5 - 14.5 % [facility] Platelet mean volume (Bld) [Entitic vol] 8.1 fL 7.4 - 12.4 fL [facility] Comment on above: MPV is a calculated measurement using platelet volume ratio. Platelets (Bld) [#/Vol] 247 10*3/uL 140 - 440 10*3/uL [facility] RBC (Bld) [#/Vol] 4.81 10*6/uL 3.80 - 5.2 0 10*6/uL [facility] WBC (Bld) [#/Vol] 10.9 10*3/uL High 3.6 - 10.7 10*3/uL [facility] Test Performed by [facility], [address], [place] [id number] [place] [address] LAB [facility] CR Chest Portableon 01-12-20 CR Chest Portable Patient Name: ROMY EVANS Diagnostic Radiology ACCESSION EXAM DATE/TIME PROCEDURE ORDERING PROVIDER [id number] 01/11/2022 11:12 EDT CR Chest Portable TJ VILLANUEVA DANIEL M CPT code 48557 Reason For Exam (CR Chest Portable) chest pain Report PORTABLE CHEST X-RAY CLINICAL INDICATION: Chest pain A portable frontal view of the chest was obtained. COMPARISON: None FINDINGS: The cardiac silhouette is within normal limits. No focal consolidation is seen within the lungs. There is no large pleural effusion or pneumothorax. The bony structures of the chest are unremarkable as visualized. IMPRESSION: No acute cardiopulmonary disease. Report Dictated on Final Dictating Physician: MD BOOTH JONATHAN R Signed Date and Time: 01/11/2022 12:50 pm Signed by: MD BOOTH JONATHAN R Transcribed Date and Time: 01/11/2022 12:51 Normal [facility] CTA Chest W WO (PE study)on 01-11-2022 Patient Name: ROMY EVANS Computed Tomography ACCESSION EXAM DATE/TIME PROCEDURE ORDERING PROVIDER [id number] 01/11/2022 13:54 EDT CTA Chest w/ + w/o TJ VILLANUEVA DANIEL M Contrast CPT code 41675 Q9967 Reason For Exam (CTA Chest w/ + w/o Contrast) Chest pain, elevated D-dimer Report CTA CHEST WITH CONTRAST CLINICAL INDICATION: Chest pain Serial axial CT images were obtained from the lung apices through the upper abdomen after a bolus tracked intravenous contrast injection over the pulmonary arteries. 75 cc of Isovue 370 contrast was given intravenously. Three-dimensional and surface-shaded reconstructions were performed by myself on a separate workstation at the time of dictation. COMPARISON: Chest x-ray performed the same day. FINDINGS: No filling defects are seen within the pulmonary vasculature to suggest the presence of pulmonary embolism. No focal consolidation is seen within the lungs. There is no pleural effusion or pneumothorax. No pulmonary nodules are identified. There is no hilar, mediastinal, or axillary lymphadenopathy. The heart size is within normal limits. There is no pericardial effusion. The thoracic aorta appears normal in caliber. The visualized portion of the upper abdomen is unremarkable. No lytic or blastic lesions are seen on the bone windows. IMPRESSION: No evidence of pulmonary embolism. The lungs appear clear. Report Dictated on --- Final --- Dictating Physician: MD BOOTH JONATHAN R Signed Date and Time: 01/11/2022 2:02 pm Signed by: MD BOOTH JONATHAN R Transcribed Date and Time: 01/11/2022 2:03 [facility] Torito Booth MD - 01/11/2022 Patient Name: ROMY EVANS Computed Tomography ACCESSION EXAM DATE/TIME PROCEDURE ORDERING PROVIDER [id number] 01/11/2022 13:54 EDT CTA Chest w/ + w/o TJ VILLANUEVA DANIEL M Contrast CPT code 09341 Q9967 Reason For Exam (CTA Chest w/ + w/o Contrast) Chest pain, elevated D-dimer Report CTA CHEST WITH CONTRAST CLINICAL INDICATION: Chest pain Serial axial CT images were obtained from the lung apices through the upper abdomen after a bolus tracked intravenous contrast injection over the pulmonary arteries. 75 cc of Isovue 370 contrast was given intravenously. Three-dimensional and surface-shaded reconstructions were performed by myself on a separate workstation at the time of dictation. COMPARISON: Chest x-ray performed the same day. FINDINGS: No filling defects are seen within the pulmonary vasculature to suggest the presence of pulmonary embolism. No focal consolidation is seen within the lungs. There is no pleural effusion or pneumothorax. No pulmonary nodules are identified. There is no hilar, mediastinal, or axillary lymphadenopathy. The heart size is within normal limits. There is no pericardial effusion. The thoracic aorta appears normal in caliber. The visualized portion of the upper abdomen is unremarkable. No lytic or blastic lesions are seen on the bone windows. IMPRESSION: No evidence of pulmonary embolism. The lungs appear clear. Report Dictated on --- Final --- Dictating Physician: MD BOOTH JONATHAN R Signed Date and Time: 01/11/2022 2:02 pm Signed by: MD BOOTH JONATHAN R Transcribed Date and Time: 01/11/2022 2:03 [facility] Work Phone: [facility] Work Phone: Radiology Study observation (narrative) [facility] Work Phone: CTA Chest w/ + w/o Contrasto n 01-11-2022 CTA Chest w/ + w/o Contrast Patient Name: ROMY EVANS Computed Tomography ACCESSION EXAM DATE/TIME PROCEDURE ORDERING PROVIDER [id number] 01/11/2022 13:54 EDT CTA Chest w/ + w/o TJ VILLANUEVA, OBI Schafer Contrast CPT code 52624 Q9967 Reason For Exam (CTA Chest w/ + w/o Contrast) Chest pain, elevated D-dimer Report CTA CHEST WITH CONTRAST CLINICAL INDICATION: Chest pain Serial axial CT images were obtained from the lung apices through the upper abdomen after a bolus tracked intravenous contrast injection over the pulmonary arteries. 75 cc of Isovue 370 contrast was given intravenously. Three-dimensional and surface-shaded reconstructions were performed by myself on a separate workstation at the time of dictation. COMPARISON: Chest x-ray performed the same day. FINDINGS: No filling defects are seen within the pulmonary vasculature to suggest the presence of pulmonary embolism. No focal consolidation is seen within the lungs. There is no pleural effusion or pneumothorax. No pulmonary nodules are identified. There is no hilar, mediastinal, or axillary lymphadenopathy. The heart size is within normal limits. There is no pericardial effusion. The thoracic aorta appears normal in caliber. The visualized portion of the upper abdomen is unremarkable. No lytic or blastic lesions are seen on the bone windows. IMPRESSION: No evidence of pulmonary embolism. The lungs appear clear. Report Dictated on Final Dictating Physician: MD BOOTH JONATHAN R Signed Date and Time: 01/11/2022 2:02 pm Signed by: MD BOOTH JONATHAN R Transcribed Date and Time: 01/11/2022 2:03 Normal [facility] Comp Metabolic Panelon 01-11 Potassium [Moles/Vol] 4.9 mmol/L Normal 3.5-5.1 [facility] Comment on above: Result Comment: SLIG HT HEMOLYSIS-interpret with caution Revised: Comment was added, verified by [email or web address] at 13:05 on 01/11/22 Performed By: #### C MP3, DDI2, LIPA4, TROPN, HEMDF #### [facility] [address] [place] [address] ALP [Catalytic activity/Vol] 133 U/L High 38-126 [facility] Comment on above: Performed By: #### C MP3, DDI2, LIPA4, TROPN, HEMDF #### [facility] [address] [place] [address] ALT [Catalytic activity/Vol] 37 U/L High 0-34 [facility] Comment on above: Result Comment: The ALT test is performed by an updated assay method. Please note that the reference intervals have been changed and are now sex specific. Performed By: #### C MP3, DDI2, LIPA4, TROPN, HEMDF #### [facility] [address] [place] [address] Calcium [Mass/Vol] 10.5 mg/dL High 8.4-10.4 [facility] Comment on above: Performed By: #### C MP3, DDI2, LIPA4, TROPN, HEMDF #### [facility] [address] [place] [address] Glucose [Mass/Vol] 92 mg/dL Normal 70-100 [facility] Comment on above: Performed By: #### C MP3, DDI2, LIPA4, TROPN, HEMDF #### [facility] [address] [place] [address] Protein [Mass/Vol] 8.5 g/dL High 6.3-8.2 [facility] Comment on above: Performed By: #### C MP3, DDI2, LIPA4, TROPN, HEMDF #### [facility] [address] [place] [address] Urea nitrogen [Mass/Vol] 16 mg/dL Normal 9-20 [facility] Comment on above: Performed By: #### C MP3, DDI2, LIPA4, TROPN, HEMDF #### [facility] [address] [place] [address] Anion gap [Moles/Vol] 5 mmol/L Normal 3-13 [facility] Comment on above: Performed By: #### C MP3, DDI2, LIPA4, TROPN, HEMDF #### [facility] [address] [place] [address] AST [Catalytic activity/Vol] 39 U/L Normal 15-46 [facility] Comment on above: Performed By: #### C MP3, DDI2, LIPA4, TROPN, HEMDF #### [facility] [address] [place] [address] Bilirubin [Mass/Vol] 0.9 mg/dL Normal 0.2-1.3 [facility] Comment on above: Performed By: #### C MP3, DDI2, LIPA4, TROPN, HEMDF #### [facility] [address] [place] [address] CO2 [Moles/Vol] 24 mmol/L Normal 22-30 [facility] Comment on above: Performed By: #### C MP3, DDI2, LIPA4, TROPN, HEMDF #### [facility] [address] [place] [address] Creatinine [Mass/Vol] 0.75 mg/dL Normal 0.52-1.25 [facility] Comment on above: Performed By: #### C MP3, DDI2, LIPA4, TROPN, HEMDF #### [facility] [address] [place] [address] eGFR OTHER > 90.0 Normal >60 [facility] Comment on above: Result Comment: KDIG O guidelines provide the following GFR categories: Stage GFR(ml/min/1.73 m2) Terms G1 >=90 Normal or high G2 60-89 Mildly decreased* G3a 45-59 Mildly to moderately decreased G3b 30-44 Moderately to severely decreased G4 15-29 Severely decreased G5 <15 Kidney failure *Relative to young adult level. In the absence of evidence of kidney damage, neither GFR category G1 nor G2 fulfill the criteria for CKD. The CKD-EPI equation is validated in individuals 18 years of age and older. Currently the best equation for estimating glomerular filtration rate (GFR) from serum creatinine in children is the Bedside Tristan equation. It is less accurate in patients with extremes of muscle mass, restriction of dietary protein, ingestion of creatine, extra-renal metabolism of creatinine, or treatment with medications that affect renal tubular creatinine secretion. Performed By: #### C MP3, DDI2, LIPA4, TROPN, HEMDF #### [facility] [address] [place] [address] GFR/1.73 sq M.predicted among blacks MDRD (S/P/Bld) [Vol rate/Area] mL/min/{1.73_m2} Normal >60 [facility] Comment on above: Performed By: #### C MP3, DDI2, LIPA4, TROPN, HEMDF #### [facility] [address] [place] [address] Chloride [Moles/Vol] 108 mmol/L High 98-107 [facility] Comment on above: Performed By: #### C MP3, DDI2, LIPA4, TROPN, HEMDF #### [facility] [address] [place] [address] Sodium [Moles/Vol] 137 mmol/L Normal 135-145 [facility] Comment on above: Performed By: #### C MP3, DDI2, LIPA4, TROPN, HEMDF #### [facility] [address] [place] [address] Albumin [Mass/Vol] 4.5 g/dL Normal 3.5-5.0 [facility] Comment on above: Performed By: #### C MP3, DDI2, LIPA4, TROPN, HEMDF #### [facility] [address] [place] [address] Complete Urinalysison 2021 Appearance (U) Turbid Abnormal Clear [facility] Comment on above: Result Comment: . Performed By: #### C /UR ####[place] [address] [facility] [address]Urp[address] [facility], [place] [id number]#### CUA2 ####[facility] [facility] [place] [address] Bacteria Moderate Abnormal Negative [facility] Comment on above: Result Comment: . Performed By: #### C /UR ####[place] [address] [facility] [address]KmgxnS[place] [address] [facility] [address] [id number]#### CUA2 ####[facility] [facility] [place] [address] Bilirubin,Urine Negative Normal Negative [facility] Comment on above: Result Comment: . Performed By: #### C /UR ####[place] [address] [place] [address] [address] [facility] [id number]#### CUA2 ####[facility] [address] [place] [address] Color (U) Light-Yellow Normal Lt. Yellow [facility] Comment on above: Result Comment: . Performed By: #### C /UR ####[facility] [address] [place] [address]Zvidw [facility] [address] [facility] [phone]#### CUA2 ####[facility] [address] [place] [address] Glucose Ql (U) Normal Normal Normal (<70) [facility] Comment on above: Result Comment: . Performed By: #### C /UR ####[facility] [address] [place] [address]It[facility] [address] [facility] [phone]#### CUA2 ####[facility] [address] [facility] [place] [address] Ketone,Urine Negative Normal Negative [facility] Comment on above: Result Comment: . Performed By: #### C /UR ####[facility] [address] [place] [address]Nvcal [facility] [address] [facility], [place] [id number]#### CUA2 ####[facility] [address] [facility] [place] [address] Leukocytes,Urine 75 Olivia/uL Abnormal Negative [facility] Comment on above: Result Comment: . Performed By: #### C /UR ####[facility] [address] [place] [address]Nnqxb Health [address] [facility] [phone]#### CUA2 ####[facility] [address] [facility] [place] [address] Mucous Threads Few Normal Negative [facility] Comment on above: Result Comment: . Performed By: #### C /UR ####[facility] [address] [place] [address]Homgh [facility] [address], [place] [phone]#### CUA2 ####[facility] [address] [place] [address] Nitrites,Urine Positive Abnormal Negative [facility] Comment on above: Result Comment: . Performed By: #### C /UR ####[facility] [address] [place] [address]Mmy[facility] [address], [place] [phone]#### CUA2 ####[facility] [address] [place] [address] Occult Blood,Urine Negative Normal Negative [facility] Comment on above: Result Comment: . Performed By: #### C /UR ####[facility] [address] [place] [address]Vxgpk Health [address], [place] [id number]#### CUA2 ####[facility] [place] [address] pH,Urine 6.5 Normal 5.0-8.0 [facility] Comment on above: Result Comment: . Performed By: #### C /UR ####[facility] [address] [place] [address] [address], [place] [phone]#### CUA2 ####[facility] [address] [place] [address] RBC, Urine 3 - 5 Abnormal 0-2 [facility] Comment on above: Result Comment: . Performed By: #### C /UR ####[facility] [address] [place] [address]Pcrlp [facility] [address], [place] [id number]#### CUA2 ####[facility] [address] [place] [address] Specific Ennis,Urine 1.011 Normal 1.005 - 1.030 [facility] Comment on above: Result Comment: . Performed By: #### C /UR ####[facility] [address] [place] [address]Bkdko [facility] [address], [place] [id number]#### CUA2 ####[facility] [place] [address] Squamous Epithelial 0 - 2 Normal 3-5 [facility] Comment on above: Result Comment: . Performed By: #### C /UR ####[facility] [address] [place] [address]Mvnse [facility] [address], [place] [id number]#### CUA2 ####[facility] [place] [address] Total Protein,Urine Negative Normal Negative [facility] Comment on above: Result Comment: . Performed By: #### C /UR ####[facility] [address] [place] [address] [address], [place] [id number]#### CUA2 ####[facility] [place] [address] Urobilinogen,Urine Normal Normal Normal (0-1) [facility] Comment on above: Result Comment: . Performed By: #### C /UR ####[facility] [address] [place] [address] [address], [place] [phone]#### CUA2 ####[facility] [place] [address] WBC, Urine 6 - 10 Abnormal 0-5 [facility] Comment on above: Result Comment: . Performed By: #### C /UR ####[facility] [address] [place] [address]Niekc [facility] [address], [place] [phone]#### CUA2 ####[facility] [address] [place] [address] Comprehensive Metabolic Pane [place] 01-11-2022 Albumin [Mass/Vol] 4.5 g/dL 3.5 - 5.0 g/dL [facility] ALP (Bld) [Catalytic activity/Vol] 133 U/L High 38 - 126 U/L [facility] ALT [Catalytic activity/Vol] 37 U/L High 0 - 34 U/L [facility] Comment on above: The ALT test is perf ormed by an updated assay method. Please note that the reference intervals have been changed and are now sex specific. Anion gap [Moles/Vol] 5 mmol/L 3 - 13 mmol/L [facility] AST [Catalytic activity/Vol] 39 U/L 15 - 46 U/L [facility] Bilirubin [Mass/Vol] 0.9 mg/dL 0.2 - 1 .3 mg/dL [facility] Calcium [Mass/Vol] 10.5 mg/dL High 8.4 - 10. 4 mg/dL [facility] Chloride [Moles/Vol] 108 mmol/L High 98 - 10 7 mmol/L [facility] CO2 [Moles/Vol] 24 mmol/L 22 - 30 mmol/L [facility] Creatinine [Mass/Vol] 0.75 mg/dL 0.52 - 1.25 mg/dL [facility] EGFR IF NonAfrican Mongolian >90.0 >60 mL/min [facility] Comment on above: KDIGO guidelines pro vide the following GFR categories: Stage GFR(ml/min/1.73 m2) Terms G1 >=90 Normal or high G2 60-89 Mildly decreased* G3a 45-59 Mildly to moderately decreased G3b 30-44 Moderately to severely decreased G4 15-29 Severely decreased G5 <15 Kidney failure *Relative to young adult level. In the absence of evidence of kidney damage, neither GFR category G1 nor G2 fulfill the criteria for CKD. The CKD-EPI equation is validated in individuals 18 years of age and older. Currently the best equation for estimating glomerular filtration rate (GFR) from serum creatinine in children is the Bedside Tristan equation. It is less accurate in patients with extremes of muscle mass, restriction of dietary protein, ingestion of creatine, extra-renal metabolism of creatinine, or treatment with medications that affect renal tubular creatinine secretion. Free PSA/Total PSA [Mass fraction] 8.5 g/dL High 6.3 - 8.2 g/dL [facility] GFR/1.73 sq M.predicted among blacks MDRD (S/P/Bld) [Vol rate/Area] mL/min/{1.73_m2} >60 mL/min [facility] Glucose [Mass/Vol] 92 mg/dL 70 - 100 mg/dL [facility] Interpretation and review of laboratory results Abnormal [facility] Potassium [Moles/Vol] 4.9 mmol/L 3.5 - 5.1 mmol/L [facility] Comment on above: SLIGHT HEMOLYSIS-int erpret with caution Revised: Comment was added, verified by [email or web address] at 13:05 on 01/11/22 Sodium [Moles/Vol] 137 mmol/L 135 - 145 mmol/L [facility] Urea nitrogen (BldV) [Mass/Vol] 16 mg/dL 9 - 20 mg/dL [facility] Test Performed by [facility], [address], [address] [facility] D-Dimer, Innovanceon 022 D-Dimer, Innovance 0.63 mg/L High <0.19-0.50 [facility] Comment on above: Result Comment: Inno canales D-Dimer values of <0.50 mg/L FEU can be used in combination with a pre-test probability model (e.g. Well's) to exclude pulmonary embolism (PE) disease, as well as an aid in the diagnosis of deep vein thrombosis (DVT). Performed By: #### C MP3, DDI2, LIPA4, TROPN, HEMDF #### [facility] [address] [place] [address] D-Dimer, Quantitativeon D-Dimer, Quant 0.63 mg/L High <0.19 - 0.50 [facility] Comment on above: Innovance D-Dimer va lues of <0.50 mg/L FEU can be used in combination with a pre-test probability model (e.g. Well's) to exclude pulmonary embolism (PE) disease, as well as an aid in the diagnosis of deep vein thrombosis (DVT). Interpretation and review of laboratory results Abnormal [facility] Test Performed by [facility], [address], [address] [facility] ED Provider Noteon 2 ED Provider Note Emergency Department Encounter [facility] ED Patient: Romy Evans : 1970 Date of Evaluation: 01/11/2022 ED Supervising Physician: Suresh Golden MD I independently examined and evaluated Romy Evans. In brief, Romy Evans is a 51 y.o. female that presents to the emergency department for pain beneath her left breast since yesterday that she states is worse with coughing. She denies any hemoptysis or leg swelling. Triage notes document right flank pain, but the patient denies this. Focused exam: Regular rate and rhythm, no murmurs. Lungs with good aeration bilaterally. Reproducible TTP underneath the left breast. No accompanying rash or overlying skin changes. Brief ED course/MDM: Cannot rule out ACS versus PE. Less concern for shingles. All diagnostic, treatment, and disposition decisions were made by myself in conjunction with the LAKESHIA. For all further details of the patient's emergency department visit, please see their documentation. (Please note that portions of this note may have been completed with a voice recognition program. Efforts were made to edit the dictations but occasionally words are mis-transcribed.) Suresh Golden MD Acute Care [facility] Suresh Golden MD 01/11/22 1101 [facility] ED Provider Note [facility] ED eMERGENCY dEPARTMENT eNCOUnter Pt Name: Romy Evans Birthdate 1970 Date of evaluation: 01/11/2022 Provider: Obi Villanueva APRN - [employer] This patient was seen in conjunction with Dr. Golden CHIEF COMPLAINT Chief Complaint Patient presents with ? Flank Pain HISTORY OF PRESENT ILLNESS (Location/Symptom, Timing/Onset,Context /Setting, Quality, Duration, Modifying Factors, Severity) Note limiting factors. HPI Romy Evans is a 51 y.o. female who presents to the emergency department pain underneath the left breast that started yesterday. States is gotten progressively worse. Stated hurts when she coughs when she takes a deep breath. Denies reasons recent travel or surgery, denies history of DVT or PE. Tells me she had a mild heart attack in 2007. Denies leg swelling. Denies fevers or chills, shortness of breath, abdominal pain. No other complaints. Nursing Notes were reviewed. REVIEW OF SYSTEMS (2+ for4; 10+ for level 5) Review of Systems Constitutional: Negative for activity change, appetite change, chills and fever. HENT: Negative for congestion, ear discharge, ear pain, hearing loss, postnasal drip, rhinorrhea and sore throat. Eyes: Negative for discharge and redness. Respiratory: Negative for cough, chest tightness, shortness of breath and wheezing. Cardiovascular: Positive for chest pain. Negative for palpitations. Gastrointestinal: Negative for abdominal pain, diarrhea, nausea and vomiting. Genitourinary: Negative for dysuria. Musculoskeletal: Negative for arthralgias and myalgias. Skin: Negative for color change. Neurological: Negative for dizziness, tremors, syncope, weakness, light-headedness and headaches. Hematological: Negative for adenopathy. Psychiatric/Behavior al: Negative for agitation and confusion. All other systems reviewed and are negative. PAST MEDICAL HISTORY Past Medical History: Diagnosis Date ? Anxiety ? Arthritis ? Bipolar 1 disorder (HCC) ? Chronic pain ? Depression ? GERD (gastroesophageal reflux disease) ? Headache SURGICALHISTORY Past Surgical History: Procedure Laterality Date ? CHOLECYSTECTOMY CURRENT MEDICATIONS Previous Medications ATORVASTATIN (LIPITOR) 80 MG TABLET Take 80 mg by mouth daily GABAPENTIN (NEURONTIN) 100 MG CAPSULE Take 100 mg by mouth 3 times daily.. KETOROLAC (TORADOL) 10 MG TABLET Take 1 tablet by mouth every 6 hours as needed for Pain LITHIUM 150 MG CAPSULE Take 1 capsule by mouth 2 times daily (with meals) MELATONIN 3 MG TABS TABLET Take 6.5 tablets by mouth daily ONDANSETRON (ZOFRAN ODT) 8 MG TBDP DISINTEGRATING TABLET Place 1 tablet under the tongue every 8 hours as needed for Nausea or Vomiting PALIPERIDONE (INVEGA) 3 MG EXTENDED RELEASE TABLET Take 1 tablet by mouth daily ROPINIROLE (REQUIP) 0.25 MG TABLET Take 0.25 mg by mouth nightly TRAZODONE (DESYREL) 50 MG TABLET Take 1 tablet by mouth nightly as needed for Sleep Asa [aspirin], Meperidine hcl, Morphine, Penicillins, Promethazine, Demerol hcl [meperidine], and Sulfa antibiotics FAMILY HISTORY History reviewed. No pertinent family history. SOCIAL HISTORY Social History Socioeconomic History ? Marital status: Single Spouse name: None ? Number of children: None ? Years of education: None ? Highest education level: None Occupational History ? None Tobacco Use ? Smoking status: Current Every Day Smoker ? Smokeless tobacco: Never Used Substance and Sexual Activity ? Alcohol use: No ? Drug use: Yes Types: Marijuana ([place]) ? Sexual activity: None Other Topics Concern ? None Social History Narrative ? None Social Determinants of Health Financial Resource Strain: ? Difficulty of Paying Living Expenses: Not on file Food Insecurity: ? Worried About Running Out of Food in the Last Year: Not on file ? Ran Out of Food in the Last Year: Not on file Transportation Needs: ? Lack of Transportation (Medical): Not on file ? Lack of Transportation (Non-Medical): Not on file Physical Activity: ? Days of Exercise per Week: Not on file ? Minutes of Exercise per Session: Not on file Stress: ? Feeling of Stress : Not on file Social Connections: ? Frequency of Communication with Friends and Family: Not on file ? Frequency of Social Gatherings with Friends and Family: Not on file ? Attends Advent Services: Not on file ? Active Member of Clubs or Organizations: Not on file ? Attends Club or Organization Meetings: Not on file ? Marital Status: Not on file Intimate Partner Violence: ? Fear of Current or Ex-Partner: Not on file ? Emotionally Abused: Not on file ? Physically Abused: Not on file ? Sexually Abused: Not on file Housing Stability: ? Unable to Pay for Housing in the Last Year: Not on file ? Number of Places Lived in the Last Year: Not on file ? Unstable Housing in the Last Year: Not on file SCREENINGS PHYSICAL EXAM (5+ for level 4, (more content not included)... 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 No ST elevation or T-wave inversions. 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 No ST elevation or T-wave inversions. Electronically Signed On 01-11-2022 12:39:02 EDT by Mandy Golden [employer] Work Phone: EKG 12 Lead - Chest PainOrde red By: Suresh Golden on 01-11-2022 [employer] Work Phone: Hemogram w/ [employer]od[employer]on 01-11 Abs Baso Cnt 0.1 10*3/uL Normal 0.0-0.2 [facility] Comment on above: Performed By: #### C MP3, DDI2, LIPA4, TROPN, HEMDF #### [employer] ffk environment [facility] [address] [place] [address] Abs Neutrophile Cnt 7.5 10*3/uL High 1.8-7.0 [facility] ffk environment [facility] Comment on above: Performed By: #### C MP3, DDI2, LIPA4, TROPN, HEMDF #### Fast Orientation [facility] [address] [place] [address] Basophils/100 WBC (Bld) 0.9 % Normal 0.0-2.0 [facility] ffk environment [facility] Comment on above: Performed By: #### C MP3, DDI2, LIPA4, TROPN, HEMDF #### [employer] ffk environment [facility] [address] [place] [address] Eosinophils (Bld) [#/Vol] 0.2 10*3/uL Normal 0.0-0.5 [facility] Comment on above: Performed By: #### C MP3, DDI2, LIPA4, TROPN, HEMDF #### [employer] [facility] [address] [place] [address] Eosinophils/100 WBC (Bld) 1.9 % Normal 1.0-6.0 [facility] Comment on above: Performed By: #### C MP3, DDI2, LIPA4, TROPN, HEMDF #### [facility] [address] [place] [address] Erythrocyte distribution width (RBC) [Ratio] 14.6 % High 11.5-14.5 [facility] Comment on above: Performed By: #### C MP3, DDI2, LIPA4, TROPN, HEMDF #### [facility] [address] [place] [address] Granulocytes/100 WBC (Bld) 68.6 % Normal 40.0-80.0 [facility] Comment on above: Performed By: #### C MP3, DDI2, LIPA4, TROPN, HEMDF #### [facility] [address] [place] [address] Hematocrit (Bld) [Volume fraction] 44.8 % Normal 35.0-47.0 [facility] Comment on above: Performed By: #### C MP3, DDI2, LIPA4, TROPN, HEMDF #### [facility] [address] [place] [address] Hemoglobin (Bld) [Mass/Vol] 15.0 g/dL Normal 11.7-16.0 [facility] Comment on above: Performed By: #### C MP3, DDI2, LIPA4, TROPN, HEMDF #### [facility] [address] [place] [address] Lymphocytes (Bld) [#/Vol] 2.4 10*3/uL Normal 1.0-4.3 [facility] Comment on above: Performed By: #### C MP3, DDI2, LIPA4, TROPN, HEMDF #### [facility] [address] [place] [address] Lymphocytes/100 WBC (Bld) 22.0 % Normal 20.0-40.0 [facility] Comment on above: Performed By: #### C MP3, DDI2, LIPA4, TROPN, HEMDF #### [facility] [address] [place] [address] MCH (RBC) [Entitic mass] 31.1 pg Normal 26.0-34.0 [facility] Comment on above: Performed By: #### C MP3, DDI2, LIPA4, TROPN, HEMDF #### [facility] [address] [place] [address] MCHC 33.4 % Normal 32.0-36.0 [facility] Comment on above: Performed By: #### C MP3, DDI2, LIPA4, TROPN, HEMDF #### [facility] [address] [place] [address] MCV (RBC) [Entitic vol] 93.0 fL Normal 79.0-98.0 [facility] Comment on above: Performed By: #### C MP3, DDI2, LIPA4, TROPN, HEMDF #### [facility] [address] [place] [address] Monocytes (Bld) [#/Vol] 0.7 10*3/uL Normal 0.0-0.8 [facility] Comment on above: Performed By: #### C MP3, DDI2, LIPA4, TROPN, HEMDF #### [facility] [address] [place] [address] Monocytes/100 WBC (Bld) 6.6 % Normal 2.0-10.0 [facility] Comment on above: Performed By: #### C MP3, DDI2, LIPA4, TROPN, HEMDF #### [facility] [address] [place] [address] Platelet mean volume (Bld) [Entitic vol] 8.1 fL Normal 7.4-12.4 [facility] Comment on above: Result Comment: MPV is a calculated measurement using platelet volume ratio. Performed By: #### C MP3, DDI2, LIPA4, TROPN, HEMDF #### [facility] [address] [place] [address] Platelets (Bld) [#/Vol] 247 10*3/uL Normal 140-440 [facility] Comment on above: Performed By: #### C MP3, DDI2, LIPA4, TROPN, HEMDF #### [facility] [address] [place] [address] RBC (Bld) [#/Vol] 4.81 10*6/uL Normal 3.80-5.20 [facility] Comment on above: Performed By: #### C MP3, DDI2, LIPA4, TROPN, HEMDF #### [facility] [address] [place] [address] WBC (Bld) [#/Vol] 10.9 10*3/uL High 3.6-10.7 [facility] Comment on above: Performed By: #### C MP3, DDI2, LIPA4, TROPN, HEMDF #### [facility] [address] [place] [address] Lipaseon 01-11-2022 Lipase [Catalytic activity/Vol] 108 U/L Normal 23-300 [facility] Comment on above: Performed By: #### C MP3, DDI2, LIPA4, TROPN, HEMDF #### [facility] [address] [place] [address] Lipase [Catalytic activity/Vol] 108 U/L 23 - 300 U/L [facility] Test Performed by [facility], [address] [place] LAB [facility] Troponin Ion 01-11-2022 Troponin I.cardiac [Mass/Vol] ng/mL Normal 0.000-0.034 [facility] Comment on above: Result Comment: . Performed By: #### C MP3, DDI2, LIPA4, TROPN, HEMDF #### [facility] [address] [place] [address] Troponin x1on 01-11-2022 Troponin I.cardiac [Mass/Vol] ng/mL 0.000 - 0.034 ng/mL [facility] Comment on above: . Test Performed by [facility], [address] [place] [address] LAB [facility] Urinalysison 01-11-2022 Appearance (U) Turbid Abnormal Clear NA [facility] Comment on above: . Bacteria, UA Moderate Abnormal Negative /[HPF] [facility] Comment on above: . Bilirubin Urine Negative Negative mg/dL [facility] Comment on above: . Color (U) Light-Yellow Lt. Yellow NA [facility] Comment on above: . Glucose, Ur Normal Normal (<70) mg/dL [facility] Comment on above: . Interpretation and review of laboratory results Abnormal [facility] Ketones Ql (U) Negative Negative mg/dL [facility] Comment on above: . LEUKOCYTES, UA 75 Abnormal Negative Olivia/uL [facility] Comment on above: . Mucous Threads Few Negative /[LPF] [facility] Comment on above: . Nitrite, Urine Positive Abnormal Negative NA [facility] Comment on above: . Occult Blood,Urine Negative Negative mg/dL [facility] Comment on above: . pH (U) 6.5 [pH] [facility] Comment on above: . RBC, UA 3-5 Abnormal 0 - 2 /[HPF] [facility] Comment on above: . Specific [place], Urine 1.011 [facility] Comment on above: . Squam Epithel, UA 0-2 3 - 5 /[HPF] [facility] Comment on above: . Total Protein, Urine Negative Negativ e mg/dL [facility] Comment on above: . Urobilinogen, Urine Normal Normal ( 0-1) mg/dL [facility] Comment on above: . WBC, UA 6-10 Abnormal 0 - 5 /[HPF] [facility] Comment on above: . Test Performed by [facility], [address], [place] [id number] [place] [address] LAB [facility] XR CHEST PORTABLEon 01-12-20 Patient Name: ROMY EVANS Diagnostic Radiology ACCESSION EXAM DATE/TIME PROCEDURE ORDERING PROVIDER [id number] 01/11/2022 11:12 EDT CR Chest Portable TJ VILLANUEVA DANIEL M CPT code 37510 Reason For Exam (CR Chest Portable) chest pain Report PORTABLE CHEST X-RAY CLINICAL INDICATION: Chest pain A portable frontal view of the chest was obtained. COMPARISON: None FINDINGS: The cardiac silhouette is within normal limits. No focal consolidation is seen within the lungs. There is no large pleural effusion or pneumothorax. The bony structures of the chest are unremarkable as visualized. IMPRESSION: No acute cardiopulmonary disease. Report Dictated on --- Final --- Dictating Physician: MD BOOTH JONATHAN R Signed Date and Time: 01/11/2022 12:50 pm Signed by: MD BOOTH JONATHAN R Transcribed Date and Time: 01/11/2022 12:51 [facility] Torito Booth MD - 01/11/2022 Patient Name: ROMY EVANS Diagnostic Radiology ACCESSION EXAM DATE/TIME PROCEDURE ORDERING PROVIDER [id number] 01/11/2022 11:12 EDT CR Chest Portable TJ VILLANUEVA DANIEL Hanh CPT code 15046 Reason For Exam (CR Chest Portable) chest pain Report PORTABLE CHEST X-RAY CLINICAL INDICATION: Chest pain A portable frontal view of the chest was obtained. COMPARISON: None FINDINGS: The cardiac silhouette is within normal limits. No focal consolidation is seen within the lungs. There is no large pleural effusion or pneumothorax. The bony structures of the chest are unremarkable as visualized. IMPRESSION: No acute cardiopulmonary disease. Report Dictated on --- Final --- Dictating Physician: MD BOOTH JONATHAN R Signed Date and Time: 01/11/2022 12:50 pm Signed by: MD BOOTH JONATHAN R Transcribed Date and Time: 01/11/2022 12:51 [facility] Work Phone: Radiology Study observation (narrative) [facility] Work Phone: XR CHEST PORTABLEOrdered By: Torito Booth on 01-11-2022 [facility] Work Phone: Final Surgical Pathology Rep [facility] 08-20-2020 Final Surgical Pathology Report . Pathology Reports Accession: Collected Date/Time: Received Date/Time: Pathologist: [id number] 08/15/2020 08:12 EST 08/16/2020 07:46 EST MD DAVY WEINSTEIN Final Surgical Pathology Report DIAGNOSIS: ENDOMETRIUM, CURETTAGE - CLOTTED BLOOD, MUCOUS AND FRAGMENTS OF WEAKLY PROLIFERATIVE ENDOMETRIUM WITH NO SPECIFIC PATHOLOGIC CHANGES. NEGATIVE FOR HYPERPLASIA OR NEOPLASIA. Comment: Case reviewed with Dr. Larry. COMMENT: [facility] [id number] CLINICAL INFORMATION: POST MENOPAUSAL BLEEDING SPECIMEN: ENDOMETRIAL CURETTINGS GROSS DESCRIPTION: Received in formalin, labeled with the patients name, Case #[id number], and endometrial curettings are multiple hemorrhagic tissue fragments aggregating to 1 x 1 x 0.3 cm. TS -1. Dictated by WILLIAM ALICIA MICROSCOPIC DESCRIPTION: Slides reviewed. Electronically Signed by Pathology Report verified by [facility] Electronically signed by DAVY WEINSTEIN MD Sign out Date: 08/20/2020 07:53 Performing Lab: [facility], [address] [place] [address] ([place]) Comment on above: Performed By: #### S PFR #### [place] [id number] Basic Metabolic Panelon 04-06 Anion gap [Moles/Vol] 5 mmol/L [place], [place] Calcium [Mass/Vol] 10.6 mg/dL High 8.4 - 10. 4 mg/dL [place] Chloride [Moles/Vol] 103 mmol/L 98 - 10 7 mmol/L [place] CO2 [Moles/Vol] 26 mmol/L 22 - 30 mmol/L [place] Creatinine [Mass/Vol] 0.71 mg/dL 0.52 - 1.25 mg/dL [place] EGFR IF NonAfrican Mongolian >90.0 >60 mL/min [place] Comment on above: KDIGO guidelines pro vide the following GFR categories: Stage GFR(ml/min/1.73 m2) Terms G1 >=90 Normal or high G2 60-89 Mildly decreased* G3a 45-59 Mildly to moderately decreased G3b 30-44 Moderately to severely decreased G4 15-29 Severely decreased G5 <15 Kidney failure *Relative to young adult level. In the absence of evidence of kidney damage, neither GFR category G1 nor G2 fulfill the criteria for CKD. The CKD-EPI equation is validated in individuals 18 years of age and older. Currently the best equation for estimating glomerular filtration rate (GFR) from serum creatinine in children is the Bedside Tristan equation. It is less accurate in patients with extremes of muscle mass, restriction of dietary protein, ingestion of creatine, extra-renal metabolism of creatinine, or treatment with medications that affect renal tubular creatinine secretion. GFR/1.73 sq M predicted among blacks MDRD (S/P/Bld) [Vol rate/Area] mL/min/{1.73_m2} >60 mL/min [place] Glucose [Mass/Vol] 90 mg/dL 70 - 100 mg/dL [place] Interpretation and review of laboratory results Abnormal [place] Potassium [Moles/Vol] 4.5 mmol/L 3.5 - 5.1 mmol/L [place] Sodium [Moles/Vol] 135 mmol/L 135 - 145 mmol/L [place] Urea nitrogen [Mass/Vol] 15 mg/dL 7 - 20 mg/dL [place] CT Abdomen Pelvis Wo Contras ton 04-24-2020 [facility], [facility] Incoming Radiology Results From [facility] - 04/24/2020 3:47 PM EDT Patient Name: ROMY EVANS ---CT--- Exam Date/Time 04/24/2020 15:35:[address] Abdomen/Pelvis (No PO, No IV) Ordering Physician CHAVA MAGANA CONNOR N Accession Number [id number] CPT4 Codes 00885 (CT Abdomen/Pelvis (No PO, No IV)) Reason For Exam bilateral flank pain Report CT scan abdomen: 04/24/[address] scan pelvis: 04/24/2020 . Clinical Information: Pain . CT scan abdomen: CT scans of the abdomen were performed at 3 mm slice thickness with no oral or intravenous contrast as requested., Recent urinary tract infection comparison was made to the prior study 03/18/2020. Limited slices through the lower lung smith reveal no pleural or parenchymal abnormalities in the lung bases. Without the administration of oral or intravenous contrast, evaluation of solid and hollow organs is limited. The liver, spleen and pancreas are grossly normal. No free peritoneal fluid or air is seen. No retroperitoneal lymphadenopathy is identified. The kidneys are within normal limits without evidence of hydronephrosis. No abnormal calcifications are identified in the kidneys or along the course of the ureters. CT scan pelvis: CT scans the pelvis were performed at 3 mm slice thickness with no oral or intravenous contrast as requested. No abnormal loops of bowel are identified. No inflammatory changes in the mesentery are seen. No pelvic mass lesions, fluid collections or lymphadenopathy is seen. No abnormal calcifications are identified to suggest distal ureteral calculi. Impression: Study limited due to lack of contrast. No gross abnormalities are identified. Report Dictated on --- Final --- Dictating Physician: MD MOORE RISA Signed Date and Time: 04/24/2020 3:45 pm Signed by: MD MOORE RISA Transcribed Date and Time: 04/24/2020 3:46 [place] Patient Name: ROMY EVANS ---CT--- Exam Date/Time 04/24/2020 15:35:[address] Abdomen/Pelvis (No PO, No IV) Ordering Physician CHAVA MAGANA CONNOR N Accession Number [id number] CPT4 Codes 04298 (CT Abdomen/Pelvis (No PO, No IV)) Reason For Exam bilateral flank pain Report CT scan abdomen: 04/24/[address] scan pelvis: 04/24/2020 . Clinical Information: Pain . CT scan abdomen: CT scans of the abdomen were performed at 3 mm slice thickness with no oral or intravenous contrast as requested., Recent urinary tract infection comparison was made to the prior study 03/18/2020. Limited slices through the lower lung smith reveal no pleural or parenchymal abnormalities in the lung bases. Without the administration of oral or intravenous contrast, evaluation of solid and hollow organs is limited. The liver, spleen and pancreas are grossly normal. No free peritoneal fluid or air is seen. No retroperitoneal lymphadenopathy is identified. The kidneys are within normal limits without evidence of hydronephrosis. No abnormal calcifications are identified in the kidneys or along the course of the ureters. CT scan pelvis: CT scans the pelvis were performed at 3 mm slice thickness with no oral or intravenous contrast as requested. No abnormal loops of bowel are identified. No inflammatory changes in the mesentery are seen. No pelvic mass lesions, fluid collections or lymphadenopathy is seen. No abnormal calcifications are identified to suggest distal ureteral calculi. Impression: Study limited due to lack of contrast. No gross abnormalities are identified. Report Dictated on --- Final --- Dictating Physician: MD MOORE RISA Signed Date and Time: 04/24/2020 3:45 pm Signed by: MD MOORE RISA Transcribed Date and Time: 04/24/2020 3:46 [place] Hemogram (CBC) w/Auto Diffon 04-24-2020 Absolute Baso # 0.1 10*3/uL 0 - 0.2 10*3/uL [place] Absolute Neut # 6.5 10*3/uL 1.8 - 7 10*3/uL [place] Basophils/100 WBC (Bld) 1.1 % 0 - 2 % [place] Eosinophils (Bld) [#/Vol] 0.2 10*3/uL 0 - 0.5 10*3/uL [place] Eosinophils/100 WBC (Bld) 2.3 % 1 - 6 % [place] Erythrocyte distribution width (RBC) [Ratio] 14.0 % 11.5 - 14.5 % [place] Granulocytes/100 WBC (Bld) 63.9 % 40 - 80 % [place] Hematocrit (Bld) [Volume fraction] 43.4 % 35 - 47 % [place] Hemoglobin (Bld) [Mass/Vol] 14.5 g/dL 11.7 - 16 g/dL [place] Lymphocytes (Bld) [#/Vol] 2.7 10*3/uL 1 - 4.3 10*3/uL [place] Lymphocytes/100 WBC (Bld) 26.6 % 20 - 40 % [place] MCH (RBC) [Entitic mass] 30.6 pg 26 - 34 pg [place] MCHC (RBC) [Mass/Vol] 33.3 % 32 - 36 % [place] MCV (RBC) [Entitic vol] 91.7 fL 79 - 98 fL [place] Monocytes (Bld) [#/Vol] 0.6 10*3/uL 0 - 0.8 10*3/uL [place] Monocytes/100 WBC (Bld) 6.1 % 2 - 10 % [place] Platelet mean volume (Bld) [Entitic vol] 9.1 fL 7.4 - 10.4 fL [place] Platelets (Bld) [#/Vol] 258 10*3/uL 140 - 440 10*3/uL [place] RBC (Bld) [#/Vol] 4.74 10*6/uL 3.8 - 5.2 10*6/uL [place] WBC (Bld) [#/Vol] 10.2 10*3/uL 3.6 - 10.7 10*3/uL [place] Test Performed by [facility], [address] [place], [place] [address] [place] Hepatic Function Panelon Albumin [Mass/Vol] 4.4 g/dL 3.5 - 5 g/dL [place] ALP [Catalytic activity/Vol] 117 U/L 38 - 126 U/L [place] ALT [Catalytic activity/Vol] 16 U/L 0 - 34 U/L [place] Comment on above: The ALT test is perf ormed by an updated assay method. Please note that the reference intervals have been changed and are now sex specific. AST [Catalytic activity/Vol] 27 U/L 15 - 46 U/L [place] Bilirubin Ql (U) 0.3 mg/dL 0.2 - 1.3 mg/dL [place] Bilirubin.direct [Mass/Vol] 0.0 mg/dL 0 - 0.3 mg/dL [place] Protein [Mass/Vol] 8.1 g/dL 6.3 - 8.2 g/dL [place] Lipaseon 04-24-2020 Lipase [Catalytic activity/Vol] 128 U/L 23 - 300 U/L [place] Otheron 04-24-2020 Test Performed by [facility], [address] [place], [place] [address] [place] Urinalysison 04-24-2020 Appearance (U) Clear Clear NA [place] Comment on above: . Bilirubin Urine Negative Negative mg/dL [place] Comment on above: . Color (U) Colorless Lt. Yellow NA [place] Comment on above: . Glucose, Ur Normal Normal (<70) mg/dL [place] Comment on above: . Ketones Ql (U) Negative Negative mg/dL [place] Comment on above: . LEUKOCYTES, UA Negative Negative Olivia/uL [place] Comment on above: . Nitrite, Urine Negative Negative NA [place] Comment on above: . Occult Blood,Urine Negative Negative mg/dL [place] Comment on above: . pH (U) 7.5 [pH] [place] Comment on above: . Protein (U) [Mass/Vol] Negative Negat kalpana mg/dL [place] Comment on above: . Specific [place], Urine 1.008 [place] Comment on above: . Urobilinogen, Urine Normal Normal ( 0-1) mg/dL [place] Comment on above: . [facility], [address] [place] [address] [place] HPVon 03-21-2020 HPV Interp Normal See Interp HPVN [facility] ([place]) Comment on above: Order Comment: Order placed by AP_HPV_ORDER rule from [id number] Result Comment: High Risk HPV Typing: NEGATIVE HPV types 16, 18, 31, 33, 35, 39, 45, 51, 52, 56, 58, 59, 66 and 68 DNA were undetectable or below the pre-set threshold. The sruthi High-Risk HPV DNA Test is not intended for use as a screening device for Pap normal women under age 30 and is not intended to substitute for regular Pap screening. The sruthi High-Risk HPV DNA Test is designed to augment existing methods for the detection of cervical disease and should be used in conjunction with clinical information derived from other diagnostic and screening tests, physical examinations and full medical history in accordance with appropriate patient management procedures. NOTE: A negative result does not preclude the presence of HPV infection because results depend on adequate specimen collection, absence of inhibitors and sufficient DNA to be detected. See Inter HPVN Performed By: #### H PV #### [address] [address] HPV Source Cervix Normal [facility] ([place]) Comment on above: Order Comment: Order placed by AP_HPV_ORDER rule from [id number] Performed By: #### H PV #### [place] [address] [facility] Reporton 2019 [facility] Report . Pathology Reports Accession: Collected Date/Time: Received Date/Time: Pathologist: [id number] 03/08/2020 16:45 EDT 03/08/2020 18:00 EDT [facility] Report SPECIMEN: Specimen Description: Liquid Prep w/ HPV Specimen: Cervical Screening or Diagnostic: Screening RELEVANT HISTORY: LMP: 09-05-17 [id number] Post menopausal bleeding: Yes SPECIMEN ADEQUACY: SATISFACTORY FOR EVALUATION ENDOCERVICAL/TRANSFO RMATIONAL ZONE COMPONENT PRESENT INTERPRETATION/RESUL TS: NEGATIVE FOR INTRAEPITHELIAL LESION OR MALIGNANCY ADJUNCTIVE TESTING: HIGH RISK HPV DNA TESTING ORDERED, REPORT TO FOLLOW UNDER SEPARATE COVER COMMENT: This Pap Test was successfully processed and evaluated with the assistance of the [employer] Test Imaging System. Electronically Signed by Pathology report verified by [facility]. Screened by: [place] Electronically signed by Chio SON (ASCP) Sign-Out Date: 03/19/2020 10:56 Performing Lab: [address] Disclaimer The Pap test is a screening test for cervical cancer. As evidenced by published data, it is subject to both inherent false negative and false positive results. Your patient's results should be interpreted in context with pertinent clinical history including gynecological examination. Normal [facility] ([place]) Comment on above: Performed By: #### G YCR #### [place] [address] CT Abdomen Pelvis Wo Saeid weir 03-18-2020 [facility], [facility] - 03[facility]18/2020 4:02 PM EDT Patient Name: ROMY EVANS ---CT--- Exam Date/Time 03/18/2020 15:51:[address] Abdomen/Pelvis (No PO, No IV) Ordering Physician DAYNA WOLFF AMY L Accession Number [id number] CPT4 Codes 19837 (CT Abdomen/Pelvis (No PO, No IV)) Reason For Exam Right Flank Pain Report Reasons for examination: abdomen and right flank pain. Axial unenhanced scans of the abdomen and pelvis were performed without contrast, with images from the lung bases through the pubic symphysis. Comparison study 03/18/2019 The right kidney is normal in size and shape. There are no mass lesions. There is no hydronephrosis. There are no renal calculi. Along the length of the right ureter, no calculi are encountered. The left kidney is normal in size and shape. There are no mass lesions. There is no hydronephrosis. There are no renal calculi. Along the length of the left ureter, no calculi are encountered. The liver, spleen, and pancreas appear normal. The gallbladder is absent and biliary tree are normal. The bowel and mesentery are unremarkable. There is no free fluid or free air. There is no adenopathy. Scans through the pelvis demonstrate the bladder to be normal. There are no masses or adenopathy. The spine is unremarkable. IMPRESSION: 1. There are no renal/ureteral calculi or hydronephrosis (slightly prominent left renal pelvis), normal appendix 2. 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 3. 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 Axial unenhanced scans of the abdomen and pelvis were performed without contrast, with images from the lung bases through the pubic symphysis. Comparison study 03/18/2019 The right kidney is normal in size and shape. There are no mass lesions. There is no hydronephrosis. There are no renal calculi. Along the length of the right ureter, no calculi are encountered. The left kidney is normal in size and shape. There are no mass lesions. There is no hydronephrosis. There are no renal calculi. Along the length of the left ureter, no calculi are encountered. The liver, spleen, and pancreas appear normal. The gallbladder is absent and biliary tree are normal. The bowel and mesentery are unremarkable. There is no free fluid or free air. There is no adenopathy. Scans through the pelvis demonstrate the bladder to be normal. There are no masses or adenopathy. The spine is unremarkable. IMPRESSION: 1. There are no renal/ureteral calculi or hydronephrosis (slightly prominent left renal pelvis), normal appendix 2. 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 3. 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 Please note that the reference intervals have been changed and are now sex specific. Anion gap [Moles/Vol] 11 mmol/L [place], [place] AST [Catalytic activity/Vol] 65 U/L High 15 - 46 U/L [place] Bilirubin Ql (U) 0.9 mg/dL 0.2 - 1.3 mg/dL [place] Calcium [Mass/Vol] 10.6 mg/dL High 8.4 - 10. 4 mg/dL [place] Chloride [Moles/Vol] 101 mmol/L 98 - 10 7 mmol/L [place] CO2 [Moles/Vol] 24 mmol/L 22 - 30 mmol/L [place] Creatinine [Mass/Vol] 0.69 mg/dL 0.52 - 1.25 mg/dL [place] EGFR IF NonAfrican Mongolian >90.0 >60 mL/min [place] Comment on above: KDIGO guidelines pro vide the following GFR categories: Stage GFR(ml/min/1.73 m2) Terms G1 >=90 Normal or high G2 60-89 Mildly decreased* G3a 45-59 Mildly to moderately decreased G3b 30-44 Moderately to severely decreased G4 15-29 Severely decreased G5 <15 Kidney failure *Relative to young adult level. In the absence of evidence of kidney damage, neither GFR category G1 nor G2 fulfill the criteria for CKD. The CKD-EPI equation is validated in individuals 18 years of age and older. Currently the best equation for estimating glomerular filtration rate (GFR) from serum creatinine in children is the Bedside Tristan equation. It is less accurate in patients with extremes of muscle mass, restriction of dietary protein, ingestion of creatine, extra-renal metabolism of creatinine, or treatment with medications that affect renal tubular creatinine secretion. GFR/1.73 sq M predicted among blacks MDRD (S/P/Bld) [Vol rate/Area] mL/min/{1.73_m2} >60 mL/min [place] Glucose [Mass/Vol] 117 mg/dL High 70 - 100 mg/dL [place] Interpretation and review of laboratory results Abnormal [place] Potassium [Moles/Vol] 3.8 mmol/L 3.5 - 5.1 mmol/L [place] Protein [Mass/Vol] 9.3 g/dL High 6.3 - 8.2 g/dL [place] Sodium [Moles/Vol] 136 mmol/L 135 - 145 mmol/L [place] Urea nitrogen [Mass/Vol] 19 mg/dL 7 - 20 mg/dL [place] Hemogram (CBC) w/Auto Diffon 03-18-2020 Absolute Baso # 0.1 10*3/uL 0 - 0.2 10*3/uL [place] Absolute Neut # 10.3 10*3/uL High 1.8 - 7 10*3/uL [place] Basophils/100 WBC (Bld) 0.8 % 0 - 2 % [place] Eosinophils (Bld) [#/Vol] 0.3 10*3/uL 0 - 0.5 10*3/uL [place] Eosinophils/100 WBC (Bld) 2.1 % 1 - 6 % [place] Erythrocyte distribution width (RBC) [Ratio] 14.2 % 11.5 - 14.5 % [place] Granulocytes/100 WBC (Bld) 68.0 % 40 - 80 % [place] Hematocrit (Bld) [Volume fraction] 43.0 % 35 - 47 % [place] Hemoglobin (Bld) [Mass/Vol] 14.4 g/dL 11.7 - 16 g/dL [place] Interpretation and review of laboratory results Abnormal [place] Lymphocytes (Bld) [#/Vol] 3.1 10*3/uL 1 - 4.3 10*3/uL [place] Lymphocytes/100 WBC (Bld) 20.5 % 20 - 40 % [place] MCH (RBC) [Entitic mass] 31.8 pg 26 - 34 pg [place] MCHC (RBC) [Mass/Vol] 33.5 % 32 - 36 % [place] MCV (RBC) [Entitic vol] 95.1 fL 79 - 98 fL [place] Monocytes (Bld) [#/Vol] 1.3 10*3/uL High 0 - 0.8 10*3/uL [place] Monocytes/100 WBC (Bld) 8.6 % 2 - 10 % [place] Platelet mean volume (Bld) [Entitic vol] 8.2 fL 7.4 - 10.4 fL [place] Platelets (Bld) [#/Vol] 370 10*3/uL 140 - 440 10*3/uL [place] RBC (Bld) [#/Vol] 4.53 10*6/uL 3.8 - 5.2 10*6/uL [place] WBC (Bld) [#/Vol] 15.2 10*3/uL High 3.6 - 10.7 10*3/uL [place] Test Performed by [facility], [address], [place], [place] [address] [place] Lipaseon 03-18-2020 Lipase [Catalytic activity/Vol] 174 U/L 23 - 300 U/L [place] Otheron 03-18-2020 Test Performed by [facility], [address], [place], [place] [address] [place] Urinalysison 03-18-2020 Appearance (U) Ex.Turbid Abnormal Clear NA [place], [place] Comment on above: . Bacteria, UA Moderate Abnormal Negative /[HPF] [place] Comment on above: . Bilirubin Urine Negative Negative mg/dL [place] Comment on above: . Color (U) Yellow Lt. Yellow NA [place], [place] Comment on above: . Glucose, Ur Normal Normal (<70) mg/dL [place] Comment on above: . Interpretation and review of laboratory results Abnormal [place] Ketones Ql (U) Trace Abnormal Negative mg/dL [place] Comment on above: . LEUKOCYTES, UA 500 Abnormal Negative Olivia/uL [place] Comment on above: . Mucous Threads Few Negative /[LPF] [place] Comment on above: . Nitrite, Urine Positive Abnormal Negative NA [place], [place] Comment on above: . Occult Blood,Urine 0.1 mg/dL Abnormal Negative [place] Comment on above: . pH (U) 6.0 [pH] [place] Comment on above: . Protein (U) [Mass/Vol] 50 mg/dL Abnormal Negative [place] Comment on above: . RBC (U) [#/Vol] 6-10 Abnormal 0 - 2 /[HPF] [place], [place] Comment on above: . Specific Ennis, Urine 1.019 [place] Comment on above: . Squam Epithel, UA 3-5 3 - 5 /[HPF] [place] Comment on above: . Urobilinogen, Urine 2 mg/dL Abnormal Normal (0-1) [place], [place] Comment on above: . WBC, UA >100 Abnormal 0 - 5 /[HPF] [place], [place] Comment on above: . Test Performed by [facility], [address], [place], [place] [address] [place] Final Surgical Pathology Rep devonte 03-13-2020 Final Surgical Pathology Report . Pathology Reports Accession: Collected Date/Time: Received Date/Time: Pathologist: [id number] 03/08/2020 14:46 EDT 03/12/2020 08:00 EDT DO LINETTE TSONE Final Surgical Pathology Report DIAGNOSIS: ENDOMETRIUM - FRAGMENTS ATROPHIC APPEARING ENDOMETRIUM. NO MALIGNANCY. COMMENT: [facility] [id number] CLINICAL INFORMATION: POSTMENOPAUSAL BLEEDING SPECIMEN: ENDOMETRIAL BIOPSY GROSS DESCRIPTION: Received in formalin, labeled with the patients name, Case #[id number], and endometrium are multiple servin hemorrhagic tissue fragments aggregating to 2.5 x 1 x 0.1 cm. TS -1. Dictated by WILLIAM ALICIA MICROSCOPIC DESCRIPTION: Slides reviewed. Electronically Signed by Pathology Report verified by [facility] Electronically signed by LINETTE STONE DO Sign out Date: 03/13/2020 15:14 Performing Lab: [address] ([place]) Comment on above: Performed By: #### S PFR #### [place] [address] Hemoglobin A1Con 03-22-2019 HbA1c (Bld) [Mass fraction] 5.8 % High 4.0-5.7 [facility] Comment on above: Result Comment: --Hg bA1C levels may not be accurate in patients who have renal disease, received recent blood transfusions, are anemic, or who have dyshemoglobinemia. Performed By: #### L IPD2, HA1C2 #### [address] [address] HbA1c (Bld) [Mass fraction] 120 mg/dL Normal [facility] Comment on above: Performed By: #### L IPD2, HA1C2 #### [address] [place] [address] Lipid Panelon 03-22-2019 Cholesterol [Mass/Vol] 127 mg/dL Normal < 200 [facility] Comment on above: Performed By: #### L IPD2, HA1C2 #### [facility] [address] [place] [address] Cholesterol in HDL [Mass/Vol] 46 mg/dL Normal 40-60 [facility] Comment on above: Performed By: #### L IPD2, HA1C2 #### [facility] [address] [place] [address] Cholesterol.total/Chol esterol in HDL [Mass ratio] 3 Normal [facility] Comment on above: Result Comment: Ref Range: < 3 Low Risk for CHD 3-6 Mod Risk for CHD > 6 High Risk for CHD Performed By: #### L IPD2, HA1C2 #### [facility] [address] [place] [address] Protein [Mass/Vol] 64 mg/dL Normal <100 [facility] Comment on above: Performed By: #### L IPD2, HA1C2 #### [facility] [address] [place] [address] Triglyceride [Mass/Vol] 85 mg/dL Normal <150 [facility] Comment on above: Performed By: #### L IPD2, HA1C2 #### [facility] [address] [place] [address] Clinical Summary: HMSPatient IDon 02-20-2019 BOP [facility] Work Phone: Office Visit: New - 1st visi t with practice, Rm: 4on 02-20-2019 NEGATED: Highlighted rowProtein mass conc Yes [facility] Work Phone: NEGATED: Highlighted rowProtein mass conc Done [facility] Work Phone: NEGATED: Highlighted rowTobacco smoking status NHIS current everyday smoker [facility] Work Phone: NEGATED: Highlighted rowxray history of the left hip on 06/2018 at [facility] Work Phone: Clinical Lists Update: Prelo ad Extendedon 02-16-2019 Tobacco smoking status NHIS Tobacco smoking status NHIS [facility] Work Phone: Clinical Summary: Data Submi tted by Patient in [place] 02-16-2019 #DEP CHLDRN No [facility] Work Phone: ALLSPECINS Drug Allergies: ASA, PSN, Demerol, Morphine, Phenegran, Sulfa drugs Environmental: Stinging insects: wasps, bees, hornets [facility] Work Phone: ASTHEHSZHOUS 2 floors [facility] Work Phone: BROTHERS A/D My brother(s)' health history is unknown [facility] Work Phone: DEP ALG LIST Penicillin,Sulfa Drugs,I don't have any food allergies.,Dust mites,Stinging insects 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 Work Phone: DEP MOM PMH Obesity [facility] Work Phone: DEP PMH Anemia, Anxiety, Arthritis, Asthma, COPD, Depression, Fractures, GERD, Heart attack, High blood pressure [facility] Work Phone: DEP SH CSMO [facility] Work [facility]: DEP SH FSMO 2019 [facility] Work Phone: DEP SH MAST [facility] Work Phone: DEP SURGERY Abdominal surgery, Fracture repair, Gallbladder surgery, Hand surgery, Hip surgery other, Wrist surgery [facility] Work Phone: DEPFHPATUNKN My father's health history is unknown [facility] Work Phone: FATHER A/D Unknown [facility] Work Phone: [id number] stairs entering home in front and back, stairs leading to second story, stairs to basement [facility] Work Phone: MEDICCOMMNTS Take approximately 600-800 mg Gabapentin per day, 20 mg Melatonin per day, and [address] [facility] Work Phone: MOM HX COMM Mother's medical history is virtually unknown. Epileptic or seizure disorder and obesity are the only two known illnesses/conditions that are known. [facility] Work Phone: MOTHER A/D Alive [facility] Work Phone: OPIATEFREQ per day [facility] Work Phone: OTHDRUGHX_OB greater than 4 times Cr [facility] Work Phone: OTHERDRUGUSE marijuana [facility] Work Phone: Protein mass conc bipolar, continuing stomach or bowel problems currently under investigation, Hip has continued to cause severe pain when standing, walking, sitting, or even laying down. Past x-rays show bone on bone. [address] [facility] Work Phone: RLATNSHPINFR Self [facility] ic [facility] Work Phone: SIS PMH COM Half-sister had Down's Syndrome with many other health issues including dental neglect. Specific health issues unknown. [facility] Work Phone: SISTERS PMH Obesity [facility] Work Phone: SWHOUTYPE house [facility] Work Phone: TOBUSEWHEN 40 [facility] Work Phone: WEBSURGCOM tendon replacement surgery-rt hand/wrist, bone set-lft arm, tubal [facility] Work Phone: IBD Serologyon 10-20-2018 Anti Neutro Cytopl Ab IgG <1:20 Normal <1:20 [facility] Reference Lab EER Inf Bowel D Calderon SEE NOTE Normal [facility] Reference Lab Inf Bowel Dis Interp SEE NOTE Normal [facility] Reference Lab S. Cerevisiae IgA 5.9 Units Normal 0.0-24.9 [facility] Reference Lab S. Cerevisiae IgG 7.5 Units Normal 0.0-24.9 [facility] Reference Lab Celiac Scr w Reflexon 2018 Interpretation TTGNG Normal No serologic evidence of celiac disease. [facility] Reference Lab Comment on above: Performed By: #### C ELSCR #### [facility] [address] [place] [address] Endomysial IgA Abs NOTI Abnormal <1:[address] [facility] Reference Lab Comment on above: Performed By: #### C ELSCR #### [facility] [address] [place] [address] Gliad Deamidated IgA NOTI Normal <20 [facility] Reference Lab Comment on above: Performed By: #### C ELSCR #### [facility] [address] [place], [place] [address] Gliad Deamidated IgG NOTI Normal <20 [facility] Reference Lab Comment on above: Performed By: #### C ELSCR #### [facility] [address] [place], [place] [address] Transglutaminase IgA 4 Units Normal <20 [facility] Reference Lab Comment on above: Performed By: #### C ELSCR #### [facility] [address] [place], [place] [address] Transglutaminase IgG NOTI Normal <20 [facility] Reference Lab Comment on above: Performed By: #### C ELSCR #### [facility] [address] [place], [place] [address] IgA mass conc 224 mg/dL Normal 78-391 [facility] Reference Lab Comment on above: Performed By: #### C ELSCR #### [facility] [address] [place] [address] [address] Head or Brain w/o Contras ton 03-17-2018 CT Head or Brain w/o Contrast Exam Date/Time:03/17/2018 20:05 EDTReason for Exam:InjuryReportSTU DY:CT Head or Brain w/o Contrast; CT Maxillofacial w/o Contrast; 03/17/2018 8:05 pmINDICATION:Injury; Trauma. Jaw pain, headache, orbital pain.COMPARISON:None . [id number]; [id number] RING CLINICIAN:Anson SmithTECHNIQUE:Axial noncontrast CT images of the head. Axial noncontrast CT images of the facial bones.FINDINGS:BRAIN PARENCHYMA: Kyle-white matter interfaces are preserved. No mass effect or midline shift.HEMORRHAGE: No acute intracranial hemorrhage.VENTRICLE S and EXTRA-AXIAL SPACES: Normal size.EXTRACRANIAL SOFT TISSUES: Minimal right supraorbital soft tissue swelling.CALVARIUM: No depressed skull fracture. No destructive osseous lesion.OTHER FINDINGS: None.FACIAL BONES: There is subtle deformity of the left nasal bone which may relate to nondisplaced fracture. Remainder of the osseous structures are intact.SOFT TISSUES: Within normal limits.PARANASAL SINUSES: No hemorrhage in the paranasal sinuses. Mucous retention cyst versus polyp in the right maxillary sinus. Mild opacification of the left maxillary sinus and several ethmoid air cells.MASTOIDS: Within normal limits.ORBITS: The globes, extraocular muscles and optic nerve sheath complexes are symmetric. No retrobulbar hematoma.OTHER FINDINGS: Mild degenerative changes of the spine..IMPRESSION:No acute intracranial abnormality.Subtle deformity of the left nasal bone may relate to nondisplaced fracture. Correlate with symptomatology and exam.Exam Date/Time:03/17/2018 20:05 EDTReportMild right supraorbital soft tissue swelling. FINAL REPORT Dictated: 03/17/2018 8:19 pm Alesha Peña MD FSigned (Electronic Signature): 03/17/2018 8:19 pmSigned by: Alesha Peña MD Technologist: [facility] CT Maxillofacial w/o Contras ton 03-17-2018 CT Maxillofacial w/o Contrast Exam Date/Time:03/17/2018 20:05 EDTReason for Exam:TraumaReportSTU DY:CT Head or Brain w/o Contrast; CT Maxillofacial w/o Contrast; 03/17/2018 8:05 pmINDICATION:Injury; Trauma. Jaw pain, headache, orbital pain.COMPARISON:None . [id number]; [id number] ALYSSA CLINICIAN:Anson SmithTECHNIQUE:Axial noncontrast CT images of the head. Axial noncontrast CT images of the facial bones.FINDINGS:BRAIN PARENCHYMA: Kyle-white matter interfaces are preserved. No mass effect or midline shift.HEMORRHAGE: No acute intracranial hemorrhage.VENTRICLE S and EXTRA-AXIAL SPACES: Normal size.EXTRACRANIAL SOFT TISSUES: Minimal right supraorbital soft tissue swelling.CALVARIUM: No depressed skull fracture. No destructive osseous lesion.OTHER FINDINGS: None.FACIAL BONES: There is subtle deformity of the left nasal bone which may relate to nondisplaced fracture. Remainder of the osseous structures are intact.SOFT TISSUES: Within normal limits.PARANASAL SINUSES: No hemorrhage in the paranasal sinuses. Mucous retention cyst versus polyp in the right maxillary sinus. Mild opacification of the left maxillary sinus and several ethmoid air cells.MASTOIDS: Within normal limits.ORBITS: The globes, extraocular muscles and optic nerve sheath complexes are symmetric. No retrobulbar hematoma.OTHER FINDINGS: Mild degenerative changes of the spine..IMPRESSION:No acute intracranial abnormality.Subtle deformity of the left nasal bone may relate to nondisplaced fracture. Correlate with symptomatology and exam.Exam Date/Time:03/17/2018 20:05 EDTReportMild right supraorbital soft tissue swelling. FINAL REPORT Dictated: 03/17/2018 8:19 pm Alesha Peña MD FSigned (Electronic Signature): 03/17/2018 8:19 pmSigned by: Alesha Peña MD Technologist: [facility] XR Chest 2 Viewson 8 XR Chest 2 Views Exam Date/Time:03/17/2018 20:00 EDTReason for Exam:Other (please specify)ReportSTUDY: XR Chest 2 Views; 03/17/2018 8:00 pmINDICATION:Other (please specify).COMPARISON: None. [id number] CLINICIAN:Anson LandrumS:CARDIO MEDIASTINAL SILHOUETTE:Cardiomed iastinal silhouette is normal in size and configuration.LUNGS: Lungs are clear. There is no confluent airspace disease or effusion.ABDOMEN:No remarkable upper abdominal findings.BONES:No acute osseous changes.IMPRESSION:1 . No evidence of acute cardiopulmonary process. FINAL REPORT Dictated: 03/17/2018 8:38 pm Enmanuel Castro MD JSigned (Electronic Signature): 03/17/2018 8:38 pmSigned by: Enmanuel Castro MD Technologist: [facility] XR Mandible Complete Minimum 4 Viewson 03-17-2018 XR Mandible Complete Minimum 4 Views Exam Date/Time:03/17/2018 19:06 EDTReason for Exam:Pain, TraumaticReportSTUDY :XR Mandible Complete Minimum 4 Views; 03/17/2018 7:06 pmINDICATION:Pain, Traumatic.COMPARISON :None. [id number] CLINICIAN:Ajay Hill:The paranasal sinuses are clear. The orbital rims are intact. The mandible is grossly intact without evidence for fracture. There is no nasal bone fracture or significant soft tissue swelling.IMPRESSION: No fracture FINAL REPORT Dictated: 03/17/2018 7:16 pm Enmanuel Castro MD JSigned (Electronic Signature): 03/17/2018 7:16 pmSigned by: Enmanuel Castro MD Technologist: [facility] XR HIP LEFT 2 VIEWSon 2017 XR HIP LEFT 2 VIEWS EXAM: XR HIP LEFT 3 VIEWS , 02/17/2018 10:15 AMCOMPARISON: No prior studies available for comparison.CLINICAL INDICATIONS: evalRELEVANT CLINICAL HISTORY: M25.552:Left hip pain AP/Cross table lateral of left hip with 30 mm calibration ball, AP Pelvis;FINDINGS:3 images obtained.Soft Tissue: There is no obvious soft tissue swelling.Bone: No acute osseous abnormality is identified.Hip: Severe degenerative changes of the left hip with cam and pincermorphology. Mild degenerative changes of the right hip with cam morphology andcoxa profunda.IMPRESSION: No acute osseous abnormality. Severe degenerative changes of the left hip. Coxa profunda and cam morphology of the right hip with mild degenerativechanges. I personally viewed and interpreted these images and I have reviewed andapproved this report.Electronicall y Signed By: Noy Berg DO on 02/17/2018 2:16 PM Normal [facility] No Panel Information Nasal Screen MRSA/MSSA [facility] Work Phone: Vital Signs Date Time Vital Sign Value Performing Clinician Facility 06-25-2025 14:31-0400 Body height 177.[address] Milvia Dave DO Work Phone: [facility] 06-25-2025 14:31-0400 Body mass index (BMI) [Ratio] 24.8 kg/m2 Dr. Milvia Dave DO Work Phone: [facility] 06-25-2025 14:31-0400 Body weight 78.[address] Milvia Dave DO Work Phone: [facility] 06-25-2025 14:31-0400 Diastolic blood pressure 85 mm[Hg] Dr. Milvia Dave DO Work Phone: [facility] 06-25-2025 14:31-0400 Heart rate 92 /min Dr. Milvia Dave DO Work Phone: [facility] 06-25-2025 14:31-0400 Systolic blood pressure 109 mm[Hg] Dr. Milvia Dave DO Work Phone: [facility] 03-13-2022 13:40-0400 Body temperature 98.3 [degF] Dr. Josh Wells Work Phone: [facility] Work Phone: 03-13-2022 13:40-0400 Diastolic blood pressure 87 mm[Hg] Dr. Josh Wells Work Phone: [facility] Work Phone: 03-13-2022 13:40-0400 Heart rate 99 /min Dr. Josh Wells Work Phone: [facility] Work Phone: 03-13-2022 13:40-0400 Respiratory rate 18 /min Dr. Josh Wells Work Phone: [facility] Work Phone: 03-13-2022 13:40-0400 SaO2% (BldA) [Mass fraction] 95 % Dr. Josh Wells Work Phone: [facility] Work Phone: 03-13-2022 13:40-0400 Systolic blood pressure 133 mm[Hg] Dr. Josh Wells Work Phone: [facility] Work Phone: 03-12-2022 10:51-0400 Body height 177.[address] Josh Wells Work Phone: [facility] Work Phone: 03-12-2022 10:51-0400 Body weight 101.[address] Josh Wells Work Phone: [facility] Work Phone: 03-11-2022 23:08-0400 Inhaled oxygen flow rate 2 L/min Dr. Josh Wells Work Phone: [facility] Work Phone: 03-11-2022 19:08-0400 Body mass index (BMI) [Ratio] 32.1 kg/m2 Dr. Josh Wells Work Phone: [facility] Work Phone: 01-11-2022 15:16-0400 Diastolic blood pressure 86 mm[Hg] ROLANDA Golden MD Work Phone: [facility] 01-11-2022 15:16-0400 Heart rate 84 /min ROLANDA Golden MD Work Phone: [facility] 01-11-2022 15:16-0400 Respiratory rate 18 /min ROLANDA Golden MD Work Phone: [facility] 01-11-2022 15:16-0400 Systolic blood pressure 146 mm[Hg] ROLANDA Golden MD Work Phone: [facility] 01-11-2022 10:31-0400 Body temperature 99.1 [degF] ROLANDA Golden MD Work Phone: [facility] 01-11-2022 10:31-0400 SaO2% (BldA) [Mass fraction] 99 % ROLANDA Golden MD Work Phone: [facility] 04-24-2020 16:41-0400 Body Temperature 98.2 [degF] [facility] [place] [place] 04-24-2020 16:41-0400 BP Diastolic 74 mm[Hg] [facility] [place] , [place] 04-24-2020 16:41-0400 BP Systolic 114 mm[Hg] [facility] [place] , [place] 04-24-2020 16:41-0400 Pulse (Heart Rate) 62 /min [facility] [place], [place] 04-24-2020 16:41-0400 Pulse Oximetry 98 % [facility] [place] , [place] 04-24-2020 16:41-0400 Respiratory Rate 16 /min [facility] [place] 04-24-2020 13:47-0400 BMI (Body Mass Index) 25.11 kg/m2 [facility] [place], [place] 04-24-2020 13:47-0400 Body weight 79.38 kg [facility] [place] , [place] 04-24-2020 13:47-0400 Height 177.8 cm [facility] [place] 03-18-2020 21:57-0400 BP Diastolic 65 mm[Hg] [facility] [place] 03-18-2020 21:57-0400 BP Systolic 107 mm[Hg] [facility] [place] 03-18-2020 21:57-0400 Pulse (Heart Rate) 88 /min [facility] [place], [place] 03-18-2020 21:57-0400 Pulse Oximetry 97 % [facility] [place] , [place] 03-18-2020 21:57-0400 Respiratory Rate 16 /min [facility] [place] 03-18-2020 15:08-0400 BMI (Body Mass Index) 24.81 kg/m2 [facility] [place], [place] 03-18-2020 15:08-0400 Body Temperature 98.1 [degF] [facility] [place] 03-18-2020 15:08-0400 Body weight 76.2 kg [facility] [place] NEGATED: Highlighted [id number] 15:48-0400 BMI (Body Mass Index) 23.58 kg/m2 Porsche Butler AT [facility] Work Phone: NEGATED: Highlighted [id number] 15:48-0400 BP Diastolic 71 mm[Hg] Porsceh Butler AT [facility] Work Phone: NEGATED: Highlighted [id number] 15:48-0400 BP Systolic 109 mm[Hg] Porsche Richeyos AT [facility] Work Phone: NEGATED: Highlighted [id number] 15:48-0400 Height 170.18 cm Porsche Dimos AT [facility] Work Phone: NEGATED: Highlighted [id number] 15:48-0400 Height 170 cm Porsche Dimos AT [facility] Work Phone: NEGATED: Highlighted [id number] 15:48-0400 Pulse (Heart Rate) 72 /min Porsceh Dimos AT [facility] Work Phone: NEGATED: Highlighted [id number] 15:48-0400 Weight 68.04 kg Porsche Dimos AT [facility] Work Phone: NEGATED: Highlighted [id number] 15:48-0400 Weight 68 kg Porsche Richeyos AT [facility] Work Phone: Encounters Encounter Date Encounter Type Care Provider Facility Start: 06-25-2025 End: 06-25-[address] Mel Davis MD -[facility] Work Phone: Start: 06-25-2025 End: 06-25-2025 ambulatory Mel Davis Facility:[facility] Start: 03-11-2022 Non-patient / Non-visit Dr. Smith Work Phone: [facility] Start: 03-11-2022 End: 03-13-2022 Evaluation and management of inpatient Dr. Josh Wells Work Phone: [facility] Start: 03-03-2022 End: 03-03-2022 Patient encounter procedure [facility] Start: 01-11-2022 End: 01-11-2022 Emergency department patient visit J Natalia Golden MD Work Phone: [facility] ED Comment on above: Chest pain, unspecif ied type (Primary Dx); Urinary tract infection without hematuria, site unspecified; Essential hypertension Start: 04-24-2020 End: 04-24-2020 Emergency department patient visit [facility] ED Comment on above: Bilateral flank pain (Primary Dx) Start: 03-18-2020 End: 03-18-2020 Emergency department patient visit [facility] ED Comment on above: Pyelonephritis (Prim michelle Dx) Start: 02-20-2019 End: 02-20-2019 Patient encounter procedure Meño Albert MD Work Phone: [facility] Work Phone: Start: 03-17-2018 End: 03-17-2018 Emergency department patient visit [facility] Facility:[facility] Start: 03-17-2018 Patient encounter Facil [id number] Start: 02-17-2018 Ambulatory STEVEN FERCHO [facility] Procedures Date Procedure Procedure Detail Performing Clinician Start: 05-16-2025 Urinalysis Comment on above: Result Comment: URIN ALYSIS Performed By: #### [id number] #### [facility],[address] [place] [address] Start: 03-11-2022 Plain X-ray of hip Dr. Josh Wells Work Phone: Start: 03-11-2022 Total Hip Replacemen t Robotic Arm Assist (Left) Dr. Josh Wells Work Phone: Start: 03-03-2022 MRI of lower extremity Start: 01-11-2022 Ct angiography chest w/contrast/noncontrast Obi Grajeda CNP Work Phone: Start: 01-11-2022 ADD ON LAB TEST Obi Grajeda CNP Work Phone: Start: 01-11-2022 Urnls dip stick/tabl et rgnt auto w/o microscopy Obi Grajeda CNP Work Phone: Start: 01-11-2022 Comprehensive metabo lic panel Obi Grajeda CNP Work Phone: Start: 01-11-2022 Radiologic exam ches t single view Obi Villanueva [employer] Work Phone: Start: 01-11-2022 Ecg routine ecg w/le ast 12 lds w/i&r Obi Villanueva [employer] Work Phone: Start: 04-24-2020 Ct abdomen & pelvis w/o contrast material Mickey Magana Work Phone: Start: 04-24-2020 Blood count complete auto&auto difrntl wbc Mickey Magana Work Phone: Start: 04-24-2020 Urnls dip stick/tabl et rgnt auto w/o microscopy Mickey Magana Work Phone: Start: 04-24-2020 Assay of lipase Mickey Magana Work Phone: Start: 04-24-2020 Basic metabolic pane l calcium total Mickey Magana Work Phone: Start: 04-24-2020 Hepatic function panel Mickey Magana Work Phone: Start: 03-18-2020 Urnls dip stick/tabl et rgnt auto w/o microscopy Aimee L Gabi Work Phone: Start: 03-18-2020 Ct abdomen & pelvis w/o contrast material Aimee L Gabi Work Phone: Start: 03-18-2020 Assay of lipase Aimee L Suresh doran Work Phone: Start: 03-18-2020 Blood count complete auto&auto difrntl wbc Aimee L Gabi Work Phone: Start: 03-18-2020 Comprehensive metabo lic panel Aimee L Gabi Work Phone: Start: 02-20-2019 End: 02-20-2019 Blood pressure within normal parameters - no follow-up required Meño Albert MD Work Phone: Start: 02-20-2019 End: 02-20-2019 BMI documented within normal parameters - no follow-up plan is required Meño Albert MD Work Phone: Start: 02-20-2019 End: 02-20-2019 Documentation of current medications Meño Albert MD Work Phone: Start: 02-20-2019 End: 02-20-2019 Pain assessment documented as positive - follow-up documented Meño Albert MD Work Phone: Start: 02-20-2019 End: 02-20-2019 Pt tobacco screen rcvd tlk Meño gross MD Work Phone: Nasal Screen MRSA/MSSA Dr. Eryn Wells Work Phone: Plan of Treatment Date Care Activity Detail Author Start: 03-21-2029 DTaP/Tdap/Td vaccine (2 - Td or Tdap) DTaP/Tdap/Td vaccine (2 - Td or Tdap) [facility] Start: 05-07-2022 Influenza vaccination Flu vacc ine (Season Ended) [facility] Start: 03-13-2022 Patient discharge [facility] Work Phone: Start: 03-11-2022 Oxygen therapy [facility] Work Phone: Start: 03-11-2022 Following clinical pathway protocol [facility] Work Phone: Start: 03-11-2022 Application of intermittent pneumatic compression device [facility] Work Phone: Start: 03-11-2022 Admission procedure [facility] Work Phone: Start: 03-11-2022 Provision of overbed trapeze [facility] Work Phone: Start: 03-11-2022 Admission procedure [facility] Work Phone: Start: 03-11-2022 Ambulation therapy management [facility] Work Phone: Start: 03-11-2022 Application of device [facility] Work Phone: Start: 03-11-2022 Assessment of risk o f venous thromboembolism [facility] Work Phone: Start: 03-11-2022 Catheterization of vein [facility] Work Phone: Start: 03-11-2022 Consultation [facility] Work Phone: Start: 03-11-2022 Exercises [facility] Work Phone: Start: 03-11-2022 Following clinical pathway protocol [facility] Work Phone: Start: 03-11-2022 Incentive spirometry [facility] Work Phone: Start: 03-11-2022 Introduction of urin michelle catheter [facility] Work Phone: Start: 03-11-2022 Measuring intake and output [facility] Work Phone: Start: 03-11-2022 Neurovascular assessment [facility] Work Phone: Start: 03-11-2022 Patient education [facility] Work Phone: Start: 03-11-2022 Procedure discontinued [facility] Work Phone: Start: 03-11-2022 Provision of activit y privileges [facility] Work Phone: Start: 03-11-2022 Referral to occupati onal therapist [facility] Work Phone: Start: 03-11-2022 Referral to service [facility] Work Phone: Start: 03-11-2022 Vital signs measurements [facility] Work Phone: Start: 03-11-2022 Wound care [facility] Work Phone: Start: 03-11-2022 End: 03-11-2022 [facility] Work Phone: Start: 03-11-2022 Patient referral to dietitian [facility] Work Phone: Start: 05-07-2020 Influenza vaccination Flu vaccine (# 1) [place], [place] Start: 02-20-2019 End: 02-20-[address] [facility] Work Phone: Start: 02-20-2019 End: 02-20-2019 Radex hip unilateral with pelvis 2-3 views XR PELVIS W HIP 2-3 VWS-LT [facility] Work Phone: Start: 1975 COVID-19 Vaccine (1) COVID-19 Vaccin e (1) [facility] End: 03-18-2020 Culture, Urine Culture, Urine Microbiology STAT One Time for 1 Occurrences starting 03/18/2020 until 03/18/2020 [place] Comment on above: One Time for 1 Occur rences starting 03/18/2020 until 03/18/2020 Culture, Urine Culture, Urine Microbiology STAT 03/18/2020 5:56 PM EDT [place] End: 01-11-2022 Culture, Urine [facility] Work Phone: Comment on above: Once for 1 Occurrenc es starting 01/11/2022 until 01/11/2022 Patient Education \cps-sql1\CPS_ PtEducat ion\CDC_FALL_PREVENTIO N.pdf, \cps-sql1\CPS_PtEducat ion\quitting_smoking_[id number] [facility] Work Phone: Patient referral [facility] Work Phone: XR Chest PA and Lateral [facility] Work Phone: Immunizations Immunization Date Immunization Notes Care Provider Sola aguilar 03-21-2019 tetanus toxoid, reduced diphtheria toxoid, and acellular pertussis vaccine, adsorbed [facility] No information available. Porsche Butler AT [facility] Work Phone: Payers Date Payer Category Payer Medicare [id number] 2025 Self-pay [id number] 2019 Medicaid MEDICAID [facility] DEPT OF JOB [id number] 2019-Present [phone] [address] [place] [address] [id number] 2019 Medicaid [id number] 2018 Medicare 2014 Medicare MEDICARE MEDICAR E PART A AND B [id number] 2014-Present [phone] [place] [address] [id number] 2014 Medicare MEDICARE MEDICAR E PART A AND B [id number] 2014-Present [phone] [place] [address] [id number] 2014 Medicare [id number] Unknown [id number] Social History Date Type Detail Facility Start: 03-18-2020 End: 06-20-2025 Tobacco smoking status NHIS Current every day smoker [place] Start: 10-09-2018 End: 03-18-2020 Tobacco use and exposure Never used [place] Start: 03-18-2020 End: 01-11-2022 Alcohol intake Current non-drinker of alcohol (finding) [place], [place] Start: 1970 Sex Assigned At Not on file [place] Start: 01-01-2022 End: 01-11-2022 Exposure to SARS-CoV-2 (event) Not sure [place] Start: 02-26-2022 End: 03-11-2022 Tobacco smoking status NHIS Unknown if ever smoked [facility] Work Phone: Start: 1970 Sex Assigned At Female [facility] Sex Female [facility] NEGATED: Highlighted rowStart: 02-20-2019 End: 02-20-2019 Assertion Current every day smoker [facility] Work Phone: NEGATED: Highlighted rowStart: 02-20-2019 End: 02-20-2019 Tobacco use and exposure SMOK ADVICE Yes [facility] Work Phone: Medical Equipment Procedure Code Equipment Code Equipment Origin al Text Equipment Identifier Dates ([id number]) Ceramic femoral head prosthesis [id number] FDA Start: 03-11-2022 ([id number]) Coated hip femur prosthesis, modular [id number] FDA Start: 03-11-2022 ([id number]) Non-constrained polyethylene acetabular liner [id number] FDA Start: 03-11-2022 ([id number]) Acetabular shell [id number] FDA Start: 03-11-2022 Goals Date Patient Goal Desired Activity /State Functional Status Date Assessment Result Facility 03-13-2022 Functional status Ambulates;Bathroom Priv ilege [facility] Work Phone: Mental Status Date Assessment Result Facility 03-13-2022 Cognitive function Voice/Name [facility] Work Phone: Progress note 06-25-2025 Note Date & Type Note Facility 06-25-2025 Progress note [facility] Evaluation note 06-25-2025 Note Date & Type Note Facility 06-25-2025 Evaluation note Diagnosis Onset Date Resolution Flank pain acute June 25, 2025 1:37pm Mixed incontinence acute Octobe r 2024 1:37pm Nocturia acute June 25, 2025 1:37pm Overactive bladder acute Octobe r 2024 1:37pm Urinary tract infection acute O ctober 2024 1:37pm [facility] Work Phone: Progress note 06-25-2025 Note Date & Type Note Facility 06-25-2025 Progress note Note Date/Time June 25, 2025 4:05pm [facility] [address], [address] [place] [address] OFFICE VISIT Date of Service: 06/25/25 MR#: [id number] Acct: [id number] Name: ROMY EVANS Rep #: [id number] : 1970 Provider: Dr. Leticia Davis MD Age/Sex: 54/F Location: [facility] Status: Signed Intake Vital Signs 03/12/22 10:51 06/25/25 14:31 Height 5 ft 10 in 5 ft 10 in Weight: 173 lb BMI 24.8 BP 109/85 H Pulse 92 Intake Visit Reasons: POSS. INFECTION OR STONE Chief Complaint: new patient- possible uti or stone Housing Liaison Required: No Accompanied by: self Is patient in pain?: No Allergies aspirin Allergy (Severe, Verified 06/25/25 14:29) Anaphylaxis latex Allergy (Severe, Verified 06/25/25 14:29) Rash meperidine (From Demerol) Allergy (Severe, Verified 06/25/25 14:29) Hives morphine Allergy (Severe, Verified 06/25/25 14:29) Hives penicillin V Allergy (Severe, Verified 06/25/25 14:29) Anaphylaxis Sulfa (Sulfonamide Antibiotics) Allergy (Severe, Verified 06/25/25 14:29) Itching coconut Allergy (Mild, Verified 06/25/25 14:29) unknown promethazine (From Phenergan) Allergy (Mild, Verified 06/25/25 14:29) unknown hydromorphone (From Dilaudid) Adverse Reaction (Verified 06/25/25 14:29) Chest tightness Medications ?Medication ?Instructions ?Recorded ?Confirmed ?Type amlodipine 10 mg tablet 5 mg PO QHS 10/22/17 5 History aripiprazole 5 mg tablet 5 mg PO QHS 02/26/22 5 History cyclobenzaprine 10 mg tablet 10 mg PO QHS 02/26/22 History oxybutynin chloride 5 mg 5 mg PO QHS 02/26/22 5 History tablet,extended release 24 hr quetiapine 200 mg tablet (Seroquel) 200 mg PO QHS 02/0506/25/25 History ropinirole 2 mg tablet 2 mg PO QHS 02/26/22 5 History gabapentin 600 mg tablet 600 mg PO QDAY 06/20/2506/07 History Nurse's Note: pomerene in MLB CT. not sure if infection or stone. incontinence since she was a little kid. Bladder scan PVR: <50cc [facility] Medical History History of ankle fracture Kidney problem Recurrent UTI Vision problems Pneumonia Pancreatitis Kidney stones Gall stones IBS (irritable bowel syndrome) Frequent headaches Drug abuse Seasonal allergies Alcohol abuse Wears glasses Wears dentures PTSD (post-traumatic stress disorder) Bipolar disorder Anxiety Marijuana use Arthritis Anemia High cholesterol Easy bruising Bladder disease Restless legs Migraine headache Difficulty chewing History of ulceration Gastric reflux Smoker Sleep apnea Emphysema, unspecified Asthma Shortness of breath on exertion History of pain when walking History of edema History of stress test Cardiology follow-up encounter Hx of dislocation of wrist Hx of dislocation of hip Hx of fracture of arm COPD (chronic obstructive pulmonary disease) Anxiety Hyperlipidemia Hypertension Surgical History Surgical shortening of tendon performed History of tooth extraction History of hip replacement History of dental surgery H/O tubal ligation S/P cholecystectomy Family History Mother Cervical cancer Epilepsy Ovarian cancer Sister Nonne's syndrome Son Embolism Uncle Parkinson's disease Brother STD (sexually transmitted disease) Other Alcoholism Anxiety Depression Mental disorder Psychiatric care Severe allergy Suicide attempt Social History Smoking Status: Current every day smoker tobacco type: cigarettes Smoking packsper day: 1 Smoking cigarettes per day: 20.0 alcohol intake: current alcohol intake frequency: holidays/special occasions only Alcohol type: wine substance use type: marijuana what type of physical activity do you participate in: none HPI HPI Urology Chief Complaint: new patient- possible uti or stone Details: RMOY EVANS, is a 54 F. She is here for evaluation and management of possible urinary tract infection orkidney stone. The episode was 2-3 weeks ago. She had left back pain with dark urine and bad odor. She was seen at [facility]. They did a CT and she was told she could have a stone or infection, they could not tell. She had symptoms for a couple of days. It resolved with antibiotics. She is voiding 15-20 times during the day, 3-4 times at night. There is urge incontinence where she cannot make it to the bathroom. There is stress incontinence with cough, laugh, sneeze, lifting, etc. She is using 3 thick pads in 24 hours. She has had this one urinary tract infections in the last year. She has not had visible blood in her urine. She is sexually active. No issues with intercourse. There is no sensation of vaginal bulging. She has the following issues with chronic bowel function: intermixed constipation and diarrhea. There is no pelvic pain. She is a 1 ppd smoker for about 46years. There is no history of blood clots there is easy bleeding. There is not a family history of breast, ovarian or uterine. ROS Const Constitutional: No chills, fatigue, fever(s), headache(s), night sweats, weakness, weight change, abnormal sleep pattern or change in appetite Eyes Eyes: No change in vision ENT ENT: No headache(s) or dry mouth Resp Respiratory: No cough, chest congestion, shortness of breath or wheezing Cardio Cardiology: Positive for other (No chest pain.); No shortness of breath, irregular heart rhythm or lightheadedness Gastro GI: Positive for constipation, diarrhea and other (No nausea.); No abdominal pain, change in bowel habits or vomiting Musc Musculoskeletal: No abnormal gait Skin Skin: No yellowing of the eye, lesions, itchy eyes, rash or skin ulcer Neuro Neurology: No abnormal gait, confusion, dizziness, weakness, headache(s) or memory loss Psych Psychiatric: No abnormal sleep pattern, No change in appetite, No confusion and No memory loss Endo Endocrine: No fatigue, increased thirst/drinking or weight change Aller/Imm Allergy/Immunologic: No itchy eyes or wheezing Himanshu/Lymp Hematologic/Lymphatic: No easy bleeding, easy bruising or enlarged lymph nodes Exam Const General: cooperative, healthy appearing, comfortable and no acute distress [facility] Head: normocephalic and atraumatic Ears: hearing grossly normal bilaterally and external ears normal Nose: external nose normal Eyes General: appearance normal, both eyes and all related structures Neck Neck: normal visual inspection and trachea midline Chest Chest palpation & inspection: normal inspection of the chest Resp Effort & Inspection: normal respiratory effort, able to speak in complete sentences and symmetric chest movement Cardio Rate: regular rate GI Inspection: normal to inspection Palpation: soft and nontender General: No CVA tenderness Skin General: no rashes or lesions noted Neuro General: patient alert, patient awake, patient oriented x3 and CN's II-XI intactbilaterally Extrem General: normal to inspection Psych Appearance: grossly normal and well kempt Mental Status: mental status grossly normal Results POC UA Auto w/o Microscopy Office Urine Color Last Edit by Naima Gillespie on 06/25/25 14:35 Office Urine Clarity Last Edit by Naima Gillespie on 06/25/25 14:35 Office Urine Glucose Negative Last Edit by Naima Gillespie on 06/25/25 14:3 5 Office Urine Ketones Negative Last Edit by Naima Gillespie on 06/25/25 14:3 5 Office Urine Bilirubin Negative Last Edit by Naima Gillespie on 06/25/25 14 :35 Office Urine Urobilinogen 0.2 mg/dL Last Edit by Naima Gillespie on 5 14:35 Off Ur Spec [place] 1.010 Last Edit by Naima Gillespie on 06/25/25 14:35 Office Urine pH 6 Last Edit by Naima Gillespie on 06/25/25 14:35 Office Urine Protein Negative Last Edit by Naima Gillespie on 06/25/25 14:3 5 Office Urine Blood Negative Last Edit by Naima Gillespie on 06/25/25 14:35 Office Urine Blood Hemolyzed Negative Last Edit by Naima Gillespie on 06/25 14:35 Office Urine Nitrate Negative Last Edit by Naima Gillespie on 06/25/25 14:3 5 Off Ur Leukocytes Positive Last Edit by Naima Gillespie on 06/25/25 14:35 leuks 15 Coding Level of Care Code Off vis,new,level 4 Diagnoses Flank pain R10.A0 Urinary tract infection N39.0 Overactive bladder N32.81 Mixed incontinence N39.46 Nocturia R35.1 Assessment and Plan Assessment and Plan (1) Flank pain: Status: Acute (2) Urinary tract infection: Status: Acute (3) Overactive bladder: Status: Acute (4) Mixed incontinence: Status: Acute (5) Nocturia: Status: Acute Orders: Orders POC UA Auto w/o Microscopy Today N39.0 - Urinary tract infection, site not specified Plan level one management trial Gemtesa 75mg, side effects discussed obtain results of CT and urine culture from [place]. she is currently not having symptoms. will hold on treatment until reports obtained. voiding diary Plan Details Follow Up: 4 Weeks (med f/u Gemtesa samples) 06/25/25 3152 <Electronically signed by Mel Davis MD> Date _ Mel Davis MD Cosigner Signature: Date (if applicable) CC: ~ [facility] Work Phone: Hospital Discharge instructions 01-11-2022 InstructionsAttachments Note Date & Type Note Facility 01-11-2022 Hospital Discharg e instructions Obi Villanueva, BASS STRING WINDER - NEON LIGHT INSTALLER - 01/11/2022 Motrin or tylenol for pain The following attachments cannot be sent through Care Everywhere.Chest Pain (Tanzanian)UTI (Urinary Tract Infection): Female (Tanzanian)Hypertension: General Info (Tanzanian)documented in this encounter [facility] Work Phone: Evaluation note Note Date & Type Note Facility Evaluation note Diagnosis Chest pain, unspecified type- Primary Urinary tract infection without hematuria, site unspecified Essential hypertension Unspecified essential hypertension documented in this encounter [facility] Work Phone: Evaluation note Note Date & Type Note Facility Evaluation note No assessment information availa [facility] Work Phone: Evaluation note Note Date & Type Note Facility Evaluation note Diagnosis Onset Date Sleep apnea acute Status post left hip replacement acute Hypertension chronic [facility] Work Phone: Reason for referral (narrative) Note Date & Type Note Facility Reason for referral (narrative) No reason for referral information available [facility] Work Phone: Summary Purpose Family History Relationship Condition Age at Onset Recorded Date/T bon mother Malignant neoplasm of cervix Unknown Epilepsy Unknown sister Benign intracranial hypertension Unknown Relationship Condition Age at Onset Recorded Date/T bon Not Specified Severe allergy Unknown Psychiatric care Unknown Alcoholism Unknown Anxiety Unknown Depression Unknown Mental disorder Unknown Attempted suicide Unknown mother Malignant neoplasm of cervix Unknown Epilepsy Unknown Malignant neoplasm of ovary Unknown sister Benign intracranial hypertension Unknown son Embolism Unknown uncle Parkinson's disease Unknown brother Sexually transmitted infection Unknown Advance Directives Latest Code Status on File Code Status Date Activated Date Inactivated Comments Full Code 03/21/2019 3:49 PM 03/24/2019 7:38 PM Latest Code Status on File Code Status Date Activated Date Inactivated Comments Full Code 03/21/2019 3:49 PM 03/24/2019 7:38 PM Advance Directive Response Recorded Date/ Time Living Will Yes February 26, 2022 9:37am Power of Town Planner Yes February 26 9:37am Advance Directive Response Recorded Date/ Time Name of Medical Power of Town Planner jenny morales March 11, 2022 7:08pm Living Will Yes March 11, 2022 7 :08pm Power of Town Planner Yes March 11, 2022 7:08pm Chief Complaint Chief Complaint Description Start Date left hip pain Preliminary chief co mplaint data, not yet signed by the author as of Instructions Instruction Description Start Date Completed Assessments Diagnosis Pyelonephritis Pyelonephritis, unspecified Diagnosis Bilateral flank pain Abdominal pain, unspecified site Review of System There may be information available, but it has not been provided by the sender. History of Present Illness There may be information available, but it has not been provided by the sender. Reason for Referral Status Reason Specialty Diagnoses / Procedures Referred By Contact Referred To Contact [facility] Required Family Medicine Diagnoses Bilateral flank pain Mickey Magana PA-C [address] [place] [address] [facility]fl [facility] [address] [place] [id number] Scheduling Instructions [facility] [address] [place] [address] Specialty Diagnoses / Procedures Referred By Contac t Referred To Contact Internal Medicine Diagnoses Essential hypertension Obi Villanueva APRN - NEON LIGHT INSTALLER [address] [place] [address] Afl mg [facility] Im [address] [facility] [address] [place] [id number] Referral ID Status Reason Start Date Expiration Date V isits Requested Visits Authorized [facility] Required 01/11/2022 01/11/2023 1 1 Scheduling Instructions [facility] [place] [facility] [place] [address] [address] Specialty Diagnoses / Procedures Referred By Contac t Referred To Contact Cardiology Diagnoses Chest pain, unspecified type Obi Villanueva APRN - NEON LIGHT INSTALLER [address] [place] [address] Afl Spi [facility] [address] [facility] [address] [place] [id number] Referral ID Status Reason Start Date Expiration Date V isits Requested Visits Authorized [facility] Required 01/11/2022 01/11/2023 1 1 Scheduling Instructions [facility] [place] [address] [address] Discharge Instructions * Instructions* Mickey Magana PA-C - 04/24/2020 Follow up with PCP in 3 days for reassessment. If you develop any severe new or worsening of symptoms contact your doctor or return to the ED if necessary. * Attachments The following attachments cannot be sent through Care Everywhere. * Flank Pain (Tanzanian) documented in this encounter Chief Complaint and Reason for Visit Chief Complaint LT HIP *KEITH* Chief Complaint LT HIP *KEITH* LT TOTAL HIP W KEITH LT TOTAL HIP W KEITH Reason for Visit Sleep apnea Status post left hip replacement Hypertension Chief Complaint Admit Date POSS. INFECTION OR STONE June 25, 025 1:37pm Reason for Visit Admit Date Flank pain June 25, 2025 1 :37pm Mixed incontinence June 25, 2025 1 :37pm Nocturia June 25, 2025 1 :37pm Overactive bladder June 25, 2025 1 :37pm Urinary tract infection June 25 1:37pm Additional Source Comments INFORMATION SOURCE (unrecogn ized section and content) DATE CREATED AUTHOR 02/21/2018 [facility] DATE CREATED AUTHOR AUTHOR'S ORGANIZ ATION 03/18/2018 [facility] DATE CREATED AUTHOR AUTHOR'S ORGANIZ ATION 06/22/2018 [facility] DATE CREATED AUTHOR AUTHOR'S ORGANIZ ATION 10/26/2018 [facility] DATE CREATED AUTHOR AUTHOR'S ORGANIZ ATION 03/26/2019 [facility] DATE CREATED AUTHOR AUTHOR'S ORGANIZ ATION 08/21/2020 [facility] ([place]) DATE CREATED AUTHOR AUTHOR'S ORGANIZ ATION 04/09/2022 [facility] DATE CREATED AUTHOR AUTHOR'S ORGANIZ ATION 05/24/2025 [facility] DATE CREATED AUTHOR AUTHOR'S ORGANIZ ATION 06/26/2025 [facility] Reason for Visit (unrecogniz ed section and content) Reason For Visit Description New - 1st visit with practice Preliminary reason f or visit data, not yet signed by the author as of left hip pain Reason Comments Flank Pain lEFT FLANK PAIN STAR ADORE LAST WEEK. Reason Comments Flank Pain Reason Comments Flank Pain Ordered Prescriptions (unrec ognized section and content) Prescription Sig Dispensed Refills Start Date End Da te ciprofloxacin (CIPRO) 500 MG tablet Take 1 tablet by mouth 2 times daily for 7 days 14 tablet 0 01/11/2022 01/18/2022 Scheduled Active and Recently Administ ered Medications (unrecognized section and content) Medication Order 01/09/2022 01/10/2022 01/11/2022 ciprofloxacin (CIPRO) tablet 500 mg (COMPLETED) 500 mg, Oral, ONCE, 1 dose, On 01/11/22 at 1322, Antimicrobial Indications: Urinary Tract Infection 1335 (Given - Provid er: Anne Mcclain RN) HYDROcodone-acetaminophen (NORCO) 5-325 MG per tablet 1 tablet (COMPLETED) 1 tablet, Oral, ONCE, 1 dose, On 01/11/22 at 1322 1335 (Given - Provid er: Anne Mcclain RN) sodium chloride flush 0.9 % injection 3 mL(Linked Group 1) 3 mL, IntraVENous, EVERY 8 HOURS, First dose on 01/11/22 at 1035, Until Discontinued, Flush line with 3-5 mL 1035 (Due)1835 (Due) Continuous Medication Order 01/09/2022 01/10/2022 01/11/2022 0.9 % sodium chloride infusion IntraVENous, at 125 mL/hr, CONTINUOUS, Starting on 01/11/22 at 1035 1243 (New Bag - Prov ider: Anne Mcclain RN)1518 (Stopped - Provider: Gretchen Mcnamara RN) Linked Groups Order Group 1: Saline lock IV (COMPLETED) Routine, CONTINUOUS, Starting on 01/11/22 at 1045, Until Specified And sodium chloride flush 0.9 % injection 3 mLJump to med 3 mL, IntraVENous, EVERY 8 HOURS, First dose on 01/11/22 at 1035, Until Discontinued
Flush line with 3-5 mL
Goals (unrecognized section and content) Goals may be documented in a n alternate sectionGoals may be documented in an alternate section Care Teams (unrecognized sec tion and content) Team Status: Active Member Role/Relationship Status Dates Aime Neves NP, MUSICAL INSTRUMENT SUPERVISOR-C Primary care physician Active Team Status: Inactive Member Role/Relationship Status Dates Dr. Milvia Dave DO Referring Provider Active Start: June 25, 2025 End: June 25, 2025 Dr. Mel Davis MD Attending physician Active Start: June 25, 2025 End: June 25, 2025 Aime Neves NP, MUSICAL INSTRUMENT SUPERVISOR-C Primary care physician Active Start: June 25, 2025 End: June 25, 2025 FOR RECORDS PERTAINING TO PATIENTS WHO ARE OR HAVE BEEN ENROLLED IN A CHEMICAL DEPENDENCY/SUBSTANCEABUSE PROGRAM, SOME INFORMATION MAY BE OMITTED. This clinical summary was aggregated from multiple sources. Caution should be exercised in using it in the provision of clinical care. This summary normalizes information from multiple sources, and as a consequence, information in this document may materially change the coding, format and clinical context of patient data. In addition, data may be omitted in some cases. CLINICAL DECISIONS SHOULD BE BASED ON THE PRIMARY CLINICAL RECORDS. [facility]. provides no warranty or guarantee of the accuracy or completeness of information in this document.
--- NOTE | 2025-08-23 07:46 | HP.PCM_ITS ---
History and Physical Date of Admission: 08/23/25 Date of Service: 07/25/25 MR#: [id number] Acct: [id number] Name: ROMY BACON Rep #: [id number] : 1970 Provider: Dr. 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 Accompanied by: Self Is patient in pain?: No Allergies aspirin Allergy (Severe, Verified 07/25/25 13:38) Anaphylaxis latex Allergy (Severe, Verified 07/25/25 13:38) Rash meperidine (From Demerol) Allergy (Severe, Verified 07/25/25 13:38) Hives morphine Allergy (Severe, Verified 07/25/25 13:38) Hives penicillin V Allergy (Severe, Verified 07/25/25 13:38) Anaphylaxis Sulfa (Sulfonamide Antibiotics) Allergy (Severe, Verified 07/25/25 13:38) Itching coconut Allergy (Mild, Verified 07/25/25 13:38) unknown promethazine (From Phenergan) Allergy (Mild, Verified 07/25/25 13:38) unknown hydromorphone (From Dilaudid) Adverse Reaction (Verified 07/25/25 13:38) Chest tightness Medications ?Medication ?Instructions ?Recorded ?Confirmed ?Type amlodipine 10 mg tablet 5 mg PO QHS 10/22/17 07/25/25 History aripiprazole 5 mg tablet 5 mg PO QHS 02/26/22 07/25/25 History cyclobenzaprine 10 mg tablet 10 mg PO QHS 02/26/22 07/25/25 History quetiapine 200 mg tablet (Seroquel) 200 mg PO QHS 02/26/22 07/25/25 History ropinirole 2 mg tablet 2 mg PO QHS 02/26/22 07/25/25 History gabapentin 600 mg tablet 600 mg PO QDAY 06/20/25 07/25/25 History solifenacin 5 mg tablet 5 mg PO QDAY #90 tabs 07/25/25 07/25/25 Rx Have you fallen in the past year?: No Nurse's Note: 79cc [facility] Medical History History of ankle fracture Kidney problem Recurrent UTI Vision problems Pneumonia Pancreatitis Kidney stones Gall stones IBS (irritable bowel syndrome) Frequent headaches Drug abuse Seasonal allergies Alcohol abuse Wears glasses Wears dentures PTSD (post-traumatic stress disorder) Bipolar disorder Anxiety Marijuana use Arthritis Anemia High cholesterol Easy bruising Bladder disease Restless legs Migraine headache Difficulty chewing History of ulceration Gastric reflux Smoker Sleep apnea Emphysema, unspecified Asthma Shortness of breath on exertion History of pain when walking History of edema History of stress test Cardiology follow-up encounter Hx of dislocation of wrist Hx of dislocation of hip Hx of fracture of arm COPD (chronic obstructive pulmonary disease) Anxiety Hyperlipidemia Hypertension Surgical History Surgical shortening of tendon performed History of tooth extraction History of hip replacement History of dental surgery H/O tubal ligation S/P cholecystectomy Family History Mother Cervical cancer Epilepsy Ovarian cancer Sister Nonne's syndrome Son Embolism Uncle Parkinson's disease Brother STD (sexually transmitted disease) Other Alcoholism Anxiety Depression Mental disorder Psychiatric care Severe allergy Suicide attempt Social History Smoking Status: Current every day smoker tobacco type: cigarettes alcohol intake: current alcohol intake frequency: holidays/special occasions only Alcohol type: wine substance use type: marijuana what type of physical activity do you participate in: none HPI HPI Urology Chief Complaint: 4wk med f/u Details: ROMY BACON, is a 54 F. She is here for medication follow up. She has been taking Gemtesa 75mg daily. She is not having side effects from the medication. She is now voiding about 7 times during the day, and 4 times at night. There is not enough improvement. She has not had any urinary tract infections since the last visit. She has not had any blood in the urine since the last visit. She has no new urologic concerns to discuss today. ROS Const Constitutional: No chills, fatigue, fever(s), headache(s), night sweats, weakness, weight change, abnormal sleep pattern or change in appetite Eyes Eyes: No change in vision ENT ENT: No headache(s) or dry mouth Resp Respiratory: No cough, chest congestion, shortness of breath or wheezing Cardio Cardiology: Positive for other (No chest pain.); No shortness of breath, irregular heart rhythm or lightheadedness Gastro GI: Positive for other (No nausea.); No abdominal pain, change in bowel habits, constipation, diarrhea or vomiting Musc Musculoskeletal: No abnormal gait Skin Skin: No yellowing of the eye, lesions, itchy eyes, rash or skin ulcer Neuro Neurology: No abnormal gait, confusion, dizziness, weakness, headache(s) or memory loss Psych Psychiatric: No abnormal sleep pattern, No change in appetite, No confusion and No memory loss Endo Endocrine: No fatigue, increased thirst/drinking or weight change Aller/Imm Allergy/Immunologic: No itchy eyes or wheezing Himanshu/Lymp Hematologic/Lymphatic: No easy bleeding, easy bruising or enlarged lymph nodes Exam Const General: cooperative, healthy appearing, comfortable and no acute distress [facility] Head: normocephalic and atraumatic Ears: hearing grossly normal bilaterally and external ears normal Nose: external nose normal Eyes General: appearance normal, both eyes and all related structures Neck Neck: normal visual inspection and trachea midline Chest Chest palpation & inspection: normal inspection of the chest Resp Effort & Inspection: normal respiratory effort, able to speak in complete sentences and symmetric chest movement Cardio Rate: regular rate GI Inspection: normal to inspection Palpation: soft and nontender General: No CVA tenderness Skin General: no rashes or lesions noted Neuro General: patient alert, patient awake, patient oriented x3 and CN's II-XI intact bilaterally Extrem General: normal to inspection Psych Appearance: grossly normal and well kempt Mental Status: mental status grossly normal Office Procedures Post Void Residual Post Void Residual: 79cc Results POC UA Auto w/o Microscopy Office Urine Color ? Last Edit by Laureen Hankins on 07/25/25 13:44 Office Urine Clarity ? Last Edit by Laureen Hankins on 07/25/25 13:44 Office Urine Glucose Negative Last Edit by Laureen Hankins on 07/25/25 13:44 Office Urine Ketones Negative Last Edit by Laureen Husainten on 07/25/25 13:44 Office Urine Bilirubin Negative Last Edit by Laureen Nhi on 07/25/25 13:44 Office Urine Urobilinogen 0.2 mg/dL Last Edit by Laureen Nhi on 07/25/25 13:44 Off Ur Spec [place] 1.010 Last Edit by Laureen Nhi on 07/25/25 13:44 Office Urine pH 7 Last Edit by Laureen Nhi on 07/25/25 13:44 Office Urine Protein Negative Last Edit by Laureen Nhi on 07/25/25 13:44 Office Urine Blood Negative Last Edit by Laureen Nhi on 07/25/25 13:44 Office Urine Blood Hemolyzed Negative Last Edit by Laureen Husainten on 07/25/25 13:44 Office Urine Nitrate Negative Last Edit by Laureen Husainten on 07/25/25 13:44 Off Ur Leukocytes Negatve Last Edit by Laureen Husainten on 07/25/25 13:44 Coding Level of Care Code Off vis,est,level 4 Diagnoses Kidney stones N20.0 Overactive bladder N32.81 Mixed incontinence N39.46 Nocturia R35.1 Urinary tract infection N39.0 Additional Codes Intake - Is patient in pain?: No ([id number]) Assessment and Plan Assessment and Plan (1) Kidney stones: Status: Acute (2) Overactive bladder: Status: Acute (3) Mixed incontinence: Status: Acute (4) Nocturia: Status: Acute (5) Urinary tract infection: Status: Acute Orders: Orders POC UA Auto w/o Microscopy Today N32.81 - Overactive bladder PVR Today N39.46 - Mixed incontinence Abdomen Single View Today N20.0 - Calculus of kidney Medications: New solifenacin 5 mg PO QDAY 90 tabs 3RF Discontinued oxybutynin chloride ER Discontinued Reason: Order Changed 5 mg PO QHS Plan level one management continue Gemtesa 75mg, stop oxybutynin trial solifenacin 5mg daily schedule for cystoscopy and left renal extracorporeal shockwave lithotripsy under anesthesia KUB today plan for urodynamics testing after surgery is done voiding diary Plan Details Follow Up: schedule OR (Gemtesa samples today) Clinical Quality Measures Falls Risk Screening/Assistive Devices Have you fallen in the past year?: No 07/25/25 1411 <Electronically signed by Mel Davis MD> Date Mel Davis MD
[2025-08-23] MEDS: Lactated Ringers 1,000 ML 15 ML IV (08:18)
--- NOTE | 2025-08-23 08:25 | PCM.PRE.AN2 ---
ASA Classification* ASA Classification ASA Classification: 2 Assessment & Plan Anesthesia* Anesthesia Assessment Anesthesia Assessment: Discussed sedation and/or anesthesia options, risks, benefits, and alternatives with patient/parents/legal guardian/POA. Questions invited. The patient/parents/legal guardian/POA seems to understand and agrees to proceed with anesthesia plan. Reviewed the physical assessment, medical history, allergy history and patient home medications list prior to surgery/procedure/anesthetic and documented any changes. Performed airway and anesthesia risk assessments. Anesthesia Type Anesthesia Type: General History Source History Obtained from:: Patient and Chart Anesthesia Focused Assessment* Temperature: 94 F Pulse Rate: 94 Blood Pressure: 110/79 Respiratory Rate: 18 Pulse Ox: 96 Oxygen Delivery Method: Room Air Airway Assessment Mouth opens: >3 cm Mallampati Score: II Teeth Condition: Dentures (Edentulous) Neck Range of motion (ROM): Full ROM Labs Anesthesia Preop lab: CBC WBC, (4.4-11.0) 9.2 K/mm3 08/15/25, 09:06 RBC, (4.2-5.4) 4.55 M/mm3 08/15/25, 09:06 Hgb, (12.0-15.0) 13.8 g/dL 08/15/25, 09:06 Hct, (37-47) 42.9 % 08/15/25, 09:06 Plt Count, (150-450) 292 K/mm3 08/15/25, 09:06 CHEMISTRY Potassium, (3.3-5.1) 4.5 mmol/L 08/15/25, 09:06 Sodium, (133-145) 139 mmol/L 08/15/25, 09:06 Magnesium, (1.6-2.6) 2.1 mg/dL 03/03/22, 12: BUN, (4-19) 12 mg/dL 08/15/25, 09:06 Creatinine, (0.70-1.20) 0.76 mg/dL 08/15/25, 09:06 Glucose, (70-99) 101 mg/dL H 08/15/25, 09:06 POC Glucose, (74-106) 107 mg/dL H 03/11/22, 11:33 COAG PT, (11.7-14.9) 12.9 SECONDS 03/03/22, 12:28 Pre-Assessment Diagnosis/Proposed Procedure Planned Operative Procedure(s): CYSTOSCOPY, LEFT RETROGRADE PYLOGRAM, POSSIBLE URETEROSCOPY, RIGHT RENAL ESWL Anesthesia History 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 When Was Last Pacemaker Check QUESTION #4 FULL TEXT: You/Your Family Experience fever (hyperthermia) with Anesthesia Last Oral Intake Last Oral intake: Last Oral Intake NPO since 00:00 08/23/25 08:01 Meds taken in AM with sips of No 08/23/25 08:01 water? Meds patient instructed to take am of surgery PONV PONV - wire products inspector: PONV - wire products inspector Female Yes 08/14/25 15:29 HX of Motion Sickness No 08/14/25 15:29 HX of N/V After Surgery Yes 08/14/25 15:29 Non-Smoker No 08/14/25 15:29 Duration of Surgery greater No 08/14/25 15:29 than 60 minutes Number of Risk Factors 2 08/14/25 15:29 PONV Score Moderate Risk 08/14/25 15:29 Height & Weight Height & Weight: Anesthesia: Height & Weight Height 5 ft 10 in 08/23/25 08:01 Weight: 84 kg 08/23/25 08:01 Body Mass Index (BMI) 26.5 08/23/25 08:01 Respiratory Assessment Respiratory Assessment - wire products inspector: Respiratory Tract Infection Hx - wire products inspector Hx Respiratory Tract Infection Yes: GETTING BETTER 08/14/25 15:29 STOP Sleep Apnea STOP Sleep Apnea - wire products inspector: STOP Sleep Apnea - wire products inspector Hx Hypertension Yes 08/14/25 15:29 Hx Sleep Apnea No 08/14/25 15:29 CPAP BIPAP Do you snore loudly (louder No 08/14/25 15:29 than talking or can be heard Do you often feel tired/ No 08/14/25 15:29 fatigued/ sleepy during daytime? Has anyone observed you stop Yes 08/14/25 15:29 breathing during sleep? STOP Results Positive 08/14/25 15:29 QUESTION #5 FULL TEXT : Do you snore loudly (louder than talking or can be heard through closed doors)? 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 Specify any problems Hx of Preganancy in last 3 No 08/14/25 15:29 Months Nurse Filling Out Transfusion VLEHMAN 08/14/25 15:29 & Questions: Date: 08/14/25 08/14/25 15:29 Time: 15:31 08/14/25 15:29 Patient unable to answer at this time (ie. confused, unrespo /Reproduction History /Reproductive History - wire products inspector: /Reproductive Hx- wire products inspector Hx Now No 08/14/25 15:29 Gestational Age (in weeks): EDC: Hx Hx Para Hx Section SAB No 08/14/25 15:29 Does the father of the baby or his family experience fever w Father of the baby Malignant Hypertension history comment Active Medications Active Medications: Current Medications Generic Name Dose Route Start Last Admin Trade Name Freq PRN Reason Stop Dose Admin Lactated Ringer's 1,000 mls @ 15 mls/hr 08/23/25 07:45 08/23/25 08:18 IV 15 mls/hr .Q48H CHANO Administration PFSH Medical History History of ankle fracture Kidney problem Recurrent UTI Vision problems Pneumonia Pancreatitis Kidney stones Gall stones IBS (irritable bowel syndrome) Frequent headaches Drug abuse Seasonal allergies Alcohol abuse Wears glasses Wears dentures PTSD (post-traumatic stress disorder) Bipolar disorder Anxiety Marijuana use Arthritis Anemia High cholesterol Easy bruising Bladder disease Restless legs Migraine headache Difficulty chewing History of ulceration Gastric reflux Smoker Sleep apnea Emphysema, unspecified Asthma Shortness of breath on exertion History of pain when walking History of edema History of stress test Cardiology follow-up encounter Hx of dislocation of wrist Hx of dislocation of hip Hx of fracture of arm COPD (chronic obstructive pulmonary disease) Anxiety Hyperlipidemia Hypertension Home Medications ?Medication ?Instructions ?Recorded ?Last Taken ?Type amlodipine 10 mg tablet 5 mg PO QHS 10/22/17 08/22/25 History aripiprazole 5 mg tablet 5 mg PO QHS 02/26/22 08/22/25 History cyclobenzaprine 10 mg tablet 10 mg PO QHS 02/26/22 08/22/25 History quetiapine 200 mg tablet (Seroquel) 200 mg PO QHS 02/26/22 08/22/25 History ropinirole 2 mg tablet 2 mg PO QHS 02/26/22 08/22/25 History gabapentin 600 mg tablet 600 mg PO QDAY 06/20/25 08/22/25 History solifenacin 5 mg tablet 5 mg PO QDAY #90 tabs 07/25/25 08/22/25 Rx vibegron 75 mg tablet (Gemtesa) 75 mg PO DAILY 08/14/25 Unknown History Allergy/AdvReac Type Severity Reaction Status Date / Time aspirin Allergy Severe Anaphylaxis Verified 08/23/25 08:00 latex Allergy Severe Rash Verified 08/23/25 08:00 meperidine (From Demerol) Allergy Severe Hives Verified 08/23/25 08:00 morphine Allergy Severe Hives Verified 08/23/25 08:00 penicillin V Allergy Severe Anaphylaxis Verified 08/23/25 08:00 Sulfa (Sulfonamide Allergy Severe Itching Verified 08/23/25 08:00 Antibiotics) coconut Allergy Mild unknown Verified 08/23/25 08:00 promethazine (From Phenergan) Allergy Mild unknown Verified 08/23/25 08:00 hydromorphone (From Dilaudid) AdvReac Chest Verified 08/23/25 08:00 tightness Family History Mother Cervical cancer Epilepsy Ovarian cancer Sister Nonne's syndrome Son Embolism Uncle Parkinson's disease Brother STD (sexually transmitted disease) Other Alcoholism Anxiety Depression Mental disorder Psychiatric care Severe allergy Suicide attempt Surgical History Surgical shortening of tendon performed History of tooth extraction History of hip replacement History of dental surgery H/O tubal ligation S/P cholecystectomy Social History Smoking Status: Current every day smoker tobacco type: cigarettes alcohol intake: current alcohol intake frequency: holidays/special occasions only Alcohol type: wine substance use type: marijuana what type of physical activity do you participate in: none Review of Systems (Anesthesia) ROS Narrative System reviewed and no additional complaints, except as documented.
[2025-08-23] MEDS: Lactated Ringers 500 ML IV (09:52)
[2025-08-23] MEDS: Lidocaine 1% (5 ml sdv) 5 ML Vial 8 ML IV (09:57)
--- NOTE | 2025-08-23 10:22 | EX.PCM.DISCH ---
Discharge Instructions Diet Discharge Diet: No restrictions Activity Discharge Activity: Return to Normal Activity May resume sexual activity in: No Restrictions Dressing / Incision Call your doctor if you observe: Fever of 101 or Higher, Inability to urinate and Inability to have a bowel movement Follow Up Care Please Follow Up With: Mel Davis MD Test Results: Test results from this visit will be discussed in further detail at your follow-up appointment, if applicable. Discharge Plan Admission Attending Provider: Mel Davis Primary Care Provider: Janie Peck NP Instructions Print Language: Korean Discharge Orders/Prescriptions Prescriptions: New oxycodone-acetaminophen 5-325 mg tablet 1 tab PO Q8H PRN (Reason: pain) 3 Days Qty: 10 0RF ondansetron 4 mg tablet,disintegrating 4 mg PO Q8H PRN (Reason: nausea and vomiting) Qty: 10 0RF nitrofurantoin monohyd/m-cryst [Macrobid] 100 mg capsule 100 mg PO BID Qty: 6 0RF Rx Instructions: must administer with a meal/food Continued amlodipine 10 mg tablet 5 mg PO QHS gabapentin 600 mg tablet 600 mg PO QDAY solifenacin 5 mg tablet 5 mg PO QDAY Qty: 90 3RF cyclobenzaprine 10 mg Tablet 10 mg PO QHS quetiapine [Seroquel] 200 mg Tablet 200 mg PO QHS ropinirole 2 mg Tablet 2 mg PO QHS Rx Instructions: administer 1-3 hours before bedtime aripiprazole 5 mg Tablet 5 mg PO QHS Gemtesa 75 mg tablet 75 mg PO DAILY Referrals / Follow Up: Janie Peck NP, [facility] [Primary Care Provider, Family Practice] Disposition Disposition (needs filled in before D/C Order can be placed): Home, Self Care
--- NOTE | 2025-08-23 10:25 | OP.PCM_ITS ---
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: No Type of Anesthesia: General RN Documented Start/Stop Times: Operation Date: 08/23/25 09:50 Case Time Into Pre-Op 08/23/25 07:45 Out of Pre-Op 08/23/25 09:48 Anesthesia Start 08/23/25 09:52 Into Room 08/23/25 09:52 Procedure Start 08/23/25 10:07 Procedure End 08/23/25 10:37 Anesthesia End 08/23/25 10:46 Out of Room 08/23/25 10:46 Into Recovery 08/23/25 10:49 Procedure Start Time: 10:07 Procedure Stop Time: 10:37 Select all DRAINS/GRAFTS/IMPLANTS that apply: None Estimated Blood Loss: <5cc Specimen collected: No Description of surgery: The patient is a 54-year-old female found on CT scan to have a right renal calculus and left renal pelvis dilation with hydroureter. She now presents for evaluation and management. Informed consent was obtained. The patient was taken to the operating room and placed on the operating room table. Anesthesia monitored the head, neck, airway, IV access and vital signs throughout the case. Once anesthesia was appropriately administered, she was placed into dorsolithotomy position was prepped and draped in usual sterile fashion. The cystoscope was inserted through the urethra under direct visualization into the urinary bladder. The bladder mucosa was visualized revealing no evidence of mass, erythema, ulceration or foreign body. The left ureteral orifice was id entified and the correct anatomic position and the area of the trigone. It was gently cannulated with an 8 Prydeinig cone-tip catheter. Contrast was injected in retrograde fashion revealing no evidence of distal stone, no hydroureter was identified. 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 There was no filling defect identified. No renal stone. Visualized. At this time the patient's bladder was emptied and the cystoscope was removed. She was repositioned on the table. Right renal calculus was easily visualized. 2000 shocks were utilized to break the stone to the point it was no longer visible. The patient was then awakened and taken to the recovery room in good condition. There were no complications during this procedure. Surgical Findings: No left side stone, left ureteropelvic junction obstruction, right renal calculus Complications Complications: No Admit VTE Documentation VTE Present on Admission: Yes VTE Mechan Device Prophylaxis: SCD's VTE Pharm Prophylaxis ordered?: No Reason prophylaxis not ordered: Treatment Not Indicated
[2025-08-23] MEDS: fentaNYL 100 MCG/2 ML Ampul IV (10:41)
--- NOTE | 2025-08-23 10:51 | PCM.POST.ANE ---
Anesthesia: Postop Eval I Current Vital Signs Temperature: 98.4 F Pulse Rate: 74 Blood Pressure: 135/73 Respiratory Rate: 16 Pulse Ox: 95 Assessment Airway patent: Yes Spontaneous unlabored respirations: Yes nausea: No Vomiting: No Anesthesia Complication: No Fluid Hydration Crystalloid volume administer (ml): 500 Total IV fluid infused: 500 Progress Note Anesthesia document: Postop Eval 1 completed: Yes
--- NOTE | 2025-08-23 12:21 | SUR.PHASEII ---
educated on post op bleeding; pale, thin, no clots seen. pad worn to monitor. dr. marte aware and cleared for discharge.
--- NOTE | 2025-08-23 12:53 | POSTOPAN2_ITS ---
Anesthesia Postop Eval I Sum Postop Eval Completion status Anesthesia document: Postop Eval 1 completed: Yes Anesthesia Postop Eval I Summary Anesthesia Postop Eval I Summary: Anesthesia Postop Eval I: Assessment Summary Airway patent Yes 08/23/25 10:51 DESIGN VERIFICATION [email or web address] Spontaneous unlabored Yes 08/23/25 10:51 DESIGN VERIFICATION ENGINEER.[email or web address] respirations Mental status nausea No 08/23/25 10:51 DESIGN VERIFICATION ENGINEER.[email or web address] Vomiting No 08/23/25 10:51 DESIGN VERIFICATION ENGINEER.TNES Anesthesia Postop Eval I: Fluid Summary Crystalloid volume administer 500 08/23/25 10:51 DESIGN VERIFICATION ENGINEER.TNES (ml) Colloids volume administered ( ml) Blood Product volume administered (ml) Total IV fluid infused 500 08/23/25 10:51 DESIGN VERIFICATION ENGINEER.TNES Anesthesia Postop Eval I: Summary Notes Anesthesia Complication No 08/23/25 10:51 DESIGN VERIFICATION ENGINEER.TNES Anesthesia Complication Comment: Post-operative progress note Anesthesia: Postop Eval II Evaluation Mental status: Awake and Calm Pain Level: 1 nausea: No Vomiting: No Complications Anesthesia Complication: No
--- NOTE | 2025-08-23 12:53 | PCM.POSTANE2 ---
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 DYNAMICS ENGINEER.TNES Anesthesia Postop Eval I: Fluid Summary Crystalloid volume administer 500 08/23/25 10:51 VEHICLE DYNAMICS ENGINEER.TNES (ml) Colloids volume administered ( ml) Blood Product volume administered (ml) Total IV fluid infused 500 08/23/25 10:51 VEHICLE DYNAMICS ENGINEER.TNES Anesthesia Postop Eval I: Summary Notes Anesthesia Complication No 08/23/25 10:51 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
== END 2025-08-23 12:27 | disposition home or self-care (01) ==
LOC: SDC 07:40 → AC 07:41
PROVIDERS: PCP Nurse Practitioner Family; Referring Provider Urology; Visit Provider Urology
PROC: (CPT 50590; principal; 2025-08-23 09:40)
DX: N13.2 Hydronephrosis with renal and ureteral calculous obstruction (principal); F31.9 Bipolar disorder, unspecified; J44.9 Chronic obstructive pulmonary disease, unspecified; I10 Essential (primary) hypertension; N39.46 Mixed incontinence; N32.81 Overactive bladder; F41.9 Anxiety disorder, unspecified; F43.10 Post-traumatic stress disorder, unspecified; G25.81 Restless legs syndrome; F17.210 Nicotine dependence, cigarettes, uncomplicated; Z79.899 Other long term (current) drug therapy
CPT/HCPCS: 52005; 00873; 36415; 80048; 85027; C1769; J0744; J2405